=== PATIENT | female | born 1980 | race Caucasian/White ===

== ENCOUNTER 2022-03-26 21:42 | Inpatient (IN) | payer OTHER, MEDICAID, SELFPAY ==
[2022-03-26 21:56] VITALS: BP 103/64; PULSE 117; RESP 22; TEMP 37.3; O2SAT 86; BMI 30.1
--- NOTE | 2022-03-26 22:03 | DI.RAD.S_ITS ---
PROCEDURE: XR CHEST 1V INDICATIONS: suspected sepsis TECHNIQUE: One view of the chest was acquired. COMPARISON: None. FINDINGS: Surgical changes and devices: None. Lungs and pleura: There are confluent right upper lobe suprahilar airspace opacities and peripheral left basilar opacities consistent with consolidation. No definite pleural effusions or pneumothorax. Mediastinum: Mediastinal contours appear normal. Heart size is normal. Bones and chest wall: No suspicious bony lesions. Overlying soft tissues appear unremarkable. IMPRESSION: 1. Bilateral confluent airspace opacities likely representing lobar pneumonia. Dictated by: Jordan Caballero M.D. on 03/26/2022 at 23:06 Approved by: Jordan Caballero M.D. on 03/26/2022 at 23:07
[2022-03-26 22:15] VITALS: BP 103/64; PULSE 106; RESP 30; O2SAT 95
[2022-03-26] MEDS: ONDANSETRON 4 MG/2 ML INJ IV (22:18)
[2022-03-26] MEDS: SODIUM CHLORIDE 0.9% 1,000 ML 1000 ML IV ×2 (22:19→22:43)
[2022-03-26 22:36] LABS: INR 1.3 (0.9-1.3)
[2022-03-26 22:38] LABS: PTT Partial Thromboplastin Tim 26 SECONDS (26-36)
[2022-03-26 22:39] LABS: Lactate (Lactic Acid) 2.8 mmol/L (0.7-2.1)
[2022-03-26 22:40] VITALS: BP 94/47; PULSE 109; RESP 10; RESP 44; TEMP 34; O2SAT 94
[2022-03-26] MEDS: AZITHROMYCIN 500 MG in DEXTROSE 5% IN WATER 250 ML 250 MG IV (22:43)
[2022-03-26] MEDS: cefTRIAXone 2,000 MG in SODIUM CHLORIDE 0.9% 100 ML 200 MG IV (22:43)
[2022-03-26 22:49] LABS: Hematocrit 37.1 % (36-46); Hemoglobin 12.4 g/dL (12.0-16.0); Mean Corpuscular HGB Conc 33.5 % (30-36); Mean Corpuscular Hemoglobin 29.5 PG (26-34); Platelet Count 201 X10^3/uL (150-400); Red Blood Cell Count 4.21 X10^6/uL (4.0-5.2)
--- NOTE | 2022-03-26 22:58 | ED_ITS ---
HPI - SOB/Dyspnea General Chief Complaint: Shortness of Breath/Dyspnea Stated Complaint: SOB, Fever, Body aches, Vomiting Time Seen by Provider: 03/26/22 22:08 Source: patient Mode of arrival: Ambulatory Limitations: no limitations History of Present Illness HPI Narrative: Patient is a 41-year-old female without past medical history presenting today with cough fever and shortness of breath. She is in obvious respiratory distress and hypoxic. She says she has been sick for the last 4 days. With body aches fevers and chills. She has had decreased input as well. She says that she does vape and uses Kratom. She is disc feels like she can not breathe in the her lungs are tired. She has no abdominal pain nausea vomiting or diarrhea. She has traveled anywhere. Related Data Allergies Allergy/AdvReac Type Severity Reaction Status Date / Time No Known Drug Allergies Allergy Verified 03/26/22 22:02 Review of Systems Review of Systems Narrative: GENERAL: See HPI HEENT: Denies sinus pain, ear pain, sore throat, difficulty swallowing, neck abram n RESPIRATORY: See HPI CARDIOVASCULAR: Denies chest pain, palpitations, orthopnea, edema GASTROINTESTINAL: Denies nausea, vomiting, abdominal pain, diarrhea, constipation, melena. : Denies dysuria, frequency, incontinence, hematuria, urinary retention, flank pain. MUSCULOSKELETAL: Denies weakness, joint pain, or bony pain SKIN: No rash, no erythema, no pruritus NEUROLOGIC: Denies weakness, dizziness, headache, numbness, change in speech, confusion PSYCHIATRIC: No concerning psychosocial issues. 12 point review of systems is negative except for those stated above and HPI Patient History Social History Smoking Status: Unknown if ever smoked Exam Initial Vital Signs Initial Vital Signs: Vital Signs Temperature 99.2 F 03/26/22 21:56 Pulse Rate 117 H 03/26/22 21:56 Respiratory Rate 22 03/26/22 21:56 Blood Pressure 103/64 03/26/22 21:56 Pulse Oximetry 86 L 03/26/22 21:56 Oxygen Delivery Method 03/26/22 21:56 GENERAL: Alert 41-year-old female obvious respiratory distress dry mucous membranes pale cyanotic HEENT: Head atraumatic,EOMI, pupils reactive, face symmetric, dry mucous membranes CARDIOVASCULAR: Regular rate and rhythm without murmurs, rubs or gallops. RESPIRATORY: Coarse breath sounds tachypneic conversational dyspnea all mod erate to severe respiratory distress ABDOMEN: Soft, nontender. Normoactive bowel sounds all 4 quadrants. No guarding or rebound. EXTREMITIES: Normal range of motion, no clubbing or edema. Neurovascularly intact NEUROLOGICAL: Alert and oriented x4. SKIN: Warm, dry, no laceration, no petechiae, no rashes or lesions. Procedures Central Line Placement Right IJ: Patient Placed on Monitor/Pulse Ox: Yes MD Prep: mask, gown and gloves Central Line Prep: Chlorhexidine scrub and sterile drapes applied Ultrasound Used for Placement: Yes Central Line Lumen Inserted: triple Post Procedure: sutured in place, good blood return, all ports aspirated, flushed, capped and sterile dressing applied Post Procedure X-Ray: tip of catheter in good position (too deep, but in place) and no pneumothorax seen Patient Tolerated Procedure: Well Intubation sedative: Etomidate Mg Given: 10 paralytic: Succinylcholine Mg Given: 100 Laryngoscope: other (glide scope) ET Tube Size: 6.5 Tube Secured Depth (cm): 22 Tube Secured Location: lips Tube Placement Confirmation: Visualized tube passing through cords, Equal breath sounds bilaterally, No breath sounds over epigastrium, Confirmation by capnometry and Chest Xray Patient Tolerated Procedure: Well Course Orders Ordered: ED Orders 03/26/22 22:03 XR chest 1V Stat EKG-12 Lead Stat RT Consult Eval and Treat NOW 03/26/22 22:09 ABG [Arterial Blood Gas] Stat 03/26/22 22:10 Respiratory Panel (Film Array) Stat BiPAP Ventilatory Support RT PROTOCOL High flow/High humidity nasal NOW 03/26/22 22:11 BNP [NT-proBNP (BNP-Adult 18+)] Stat Complete Blood Count AUTO DIFF Stat Comprehensive Metabolic Panel Stat Lactate (Lactic Acid) Stat Lipase Stat Partial Thromboplastin Time Stat Procalcitonin Stat Prothrombin Time INR Stat 03/26/22 22:22 Blood Culture Stat 03/26/22 23:52 XR chest 1V Stat 03/27/22 00:41 ABG [Arterial Blood Gas] Stat Acetaminophen (Acetaminophen 650 Mg Supp) 650 mg NE Q6HR PRN PRN Reason: Fever/Mild Pain (1-3) Last Admin: 03/27/22 03:38 Dose: 650 mg Documented By: MUMTAZ Chlorhexidine Gluconate (Chlorhexidine Gluconate 15 Ml Cup) 15 ml PO Q6HR JACKSON Chlorhexidine Gluconate (Chlorhexidine Gluconate 15 Ml Cup) 15 ml PO Q6HR JACKSON Enoxaparin Sodium (Enoxaparin 30 Mg/0.3 Ml Syringe) 30 mg SUBCUT DAILY JACKSON Hydrocortisone (Hydrocortisone 100 Mg/2 Ml Vial) 50 mg IV Q6HR JACKSON Last Admin: 03/27/22 05:16 Dose: 50 mg Documented By: DL Propofol (Propofol) 1,000 mg in 100 mls @ 2.858 mls/hr IV TITRATE JACKSON; Protocol Last Titration: 03/27/22 04:11 Dose: 5 mcg/kg/min, 2.858 mls/hr Documented By: Admin: 03/27/22 03:57 Dose: 8 mcg/kg/min, 4.572 mls/hr Documented By: Titration: 03/27/22 03:57 Dose: 8 mcg/kg/min, 4.572 mls/hr Documented By: Titration: 03/27/22 01:08 Dose: 0 mcg/kg/min, 0 mls/hr Documented By: Titration: 03/27/22 00:19 Dose: 20 mcg/kg/min, 11.43 mls/hr Documented By: Titration: 03/26/22 23:42 Dose: 10 mcg/kg/min, 5.715 mls/hr Documented By: Admin: 03/26/22 23:28 Dose: 5 mcg/kg/min, 2.858 mls/hr Documented By: RL Fentanyl 1,000 mcg/ Dextrose 250 mls @ 16.669 mls/hr IV TITRATE JACKSON; Protocol Last Admin: 03/27/22 05:15 Dose: 2 mcg/kg/hr, 47.627 mls/hr Documented By: Titration: 03/27/22 05:15 Dose: 2 mcg/kg/hr, 47.627 mls/hr Documented By: Titration: 03/27/22 02:04 Dose: 2 mcg/kg/hr, 47.627 mls/hr Documented By: Titration: 03/27/22 00:20 Dose: 1.5 mcg/kg/hr, 35.72 mls/hr Documented By: Titration: 03/27/22 00:02 Dose: 1 mcg/kg/hr, 23.814 mls/hr Documented By: Admin: 03/26/22 23:55 Dose: 0.7 mcg/kg/hr, 16.669 mls/hr Documented By: KIRAN NOREPINEPHRINE BITARTRATE/D5W (Levophed) 4 mg in 250 mls @ 30 mls/hr IV TITRATE JACKSON; Protocol Last Admin: 03/27/22 05:31 Dose: 15 mcg/min, 56.25 mls/hr Documented By: Titration: 03/27/22 05:31 Dose: 15 mcg/min, 56.25 mls/hr Documented By: Titration: 03/27/22 01:03 Dose: 10 mcg/min, 37.5 mls/hr Documented By: Admin: 03/27/22 00:55 Dose: 8 mcg/min, 30 mls/hr Documented By: KIRAN Midazolam HCl 50 mg/ Dextrose 250 mls @ 9.525 mls/hr IV TITRATE JACKSON; Protocol Last Titration: 03/27/22 04:11 Dose: 0.02 mg/kg/hr, 9.525 mls/hr Documented By: Admin: 03/27/22 02:03 Dose: 0.05 mg/kg/hr, 23.814 mls/hr Documented By: MUMTAZ Azithromycin 500 mg/ Dextrose 250 mls @ 250 mls/hr IV Q24H JACKSON Stop: 04/01/22 20:59 Ceftriaxone Sodium 1,000 mg/ (Sodium Chloride) 100 mls @ 200 mls/hr IV Q24H JACKSON Stop: 04/01/22 19:59 Vancomycin HCl/Dextrose (Vancomycin) 1,500 mg in 300 mls @ 200 mls/hr IV Q24H JACKSON Vasopressin 40 unit/ Sodium (Chloride) 100 mls @ 6 mls/hr IV TITRATE JACKSON Stop: 04/02/22 05:00 Last Admin: 03/27/22 05:47 Dose: 0.04 unit/min, 6 mls/hr Naloxone HCl (Naloxone 0.4 Mg/Ml Vial) 0.2 mg IV Q2MIN PRN PRN Reason: Opiate Reversal Ondansetron HCl (Ondansetron 4 Mg/2 Ml Inj) 4 mg IV NOW PRN PRN Reason: Nausea And Vomiting Last Admin: 03/26/22 22:18 Dose: 4 mg Documented By: MAHIN Pantoprazole Sodium (Pantoprazole 40 Mg Vial) 40 mg IV DAILY JACKSON Discontinued Medications Etomidate (Etomidate 2 Mg/Ml 10 Ml Vial) 10 mg IV NOW ONE Stop: 03/26/22 23:11 Last Admin: 03/26/22 23:21 Dose: 10 mg Documented By: KIRAN Fentanyl (Fentanyl 100 Mcg/2 Ml Inj) 50 mcg IV NOW ONE Stop: 03/26/22 23:44 Last Admin: 03/26/22 23:44 Dose: 50 mcg Documented By: RL Sodium Chloride (Normal Saline 0.9%) 1,000 mls @ 1,000 mls/hr IV BOLUS ONE Stop: 03/26/22 23:02 Last Infusion: 03/27/22 00:29 Dose: 0 mls/hr Documented By: Admin: 03/26/22 22:19 Dose: 1,000 mls/hr Documented By: GC Ceftriaxone Sodium 2,000 mg/ (Sodium Chloride) 100 mls @ 200 mls/hr IV NOW ONE Stop: 03/26/22 22:10 Last Infusion: 03/26/22 23:51 Dose: 0 mls/hr Documented By: Admin: 03/26/22 22:43 Dose: 200 mls/hr Documented By: AT Azithromycin 500 mg/ Dextrose 250 mls @ 250 mls/hr IV NOW ONE Stop: 03/26/22 22:10 Last Infusion: 03/26/22 23:50 Dose: 0 mls/hr Documented By: Admin: 03/26/22 22:43 Dose: 250 mls/hr Documented By: AT Sodium Chloride (Normal Saline 0.9%) 1,000 mls @ 1,000 mls/hr IV BOLUS ONE Stop: 03/26/22 23:38 Last Infusion: 03/27/22 00:08 Dose: 0 mls/hr Documented By: Admin: 03/26/22 22:43 Dose: 1,000 mls/hr Documented By: AT Sodium Chloride (Normal Saline 0.9%) 2,857.62 mls @ 952.54 mls/hr 30 ml/kg infuse over 3 hr (2857.62 ml) IV NOW ONE Stop: 03/27/22 01:56 Last Admin: 03/26/22 23:12 Dose: 952.54 mls/hr Documented By: MAHIN Vancomycin HCl/Dextrose (Vancomycin) 2,000 mg in 400 mls @ 200 mls/hr IV NOW ONE Stop: 03/27/22 05:14 Last Admin: 03/27/22 03:38 Dose: 200 mls/hr Documented By: DL Ibuprofen (Ibuprofen Susp 100 Mg/5 Ml Udc) 955 mg 10 mg/kg (955 mg) PO NOW ONE Stop: 03/27/22 03:46 Ibuprofen (Ibuprofen Susp 100 Mg/5 Ml Udc) 800 mg PO NOW ONE Stop: 03/27/22 03:46 Midazolam HCl (Midazolam 2 Mg/2 Ml Vial) 5 mg IV NOW ONE Stop: 03/26/22 23:39 Last Admin: 03/26/22 23:41 Dose: 5 mg Documented By: RL Midazolam HCl (Midazolam 5 Mg/Ml Vial) 4 mg IV NOW ONE Stop: 03/27/22 00:23 Last Admin: 03/27/22 00:26 Dose: 4 mg Documented By: RL Midazolam HCl (Midazolam 5 Mg/5 Ml Vial) 5 mg IV NOW ONE Stop: 03/27/22 01:06 Last Admin: 03/27/22 02:03 Dose: Not Given Documented By: MUMTAZ Propofol (Propofol 200 Mg/20 Ml Vial) 100 mg IV NOW ONE Stop: 03/26/22 23:33 Last Admin: 03/26/22 23:32 Dose: 100 mg Documented By: KIRAN Propofol (Propofol 200 Mg/20 Ml Vial) 100 mg IV NOW ONE Stop: 03/26/22 23:40 Last Admin: 03/26/22 23:40 Dose: 100 mg Documented By: RL Succinylcholine Chloride (Succinylcholine 200 Mg/10 Ml Vial) 100 mg IV NOW ONE Stop: 03/26/22 23:12 Last Admin: 03/26/22 23:21 Dose: 100 mg Documented By: KIRAN Vancomycin HCl (Vancomycin Per Pharmacy) 1 request MISC NOW ONE Stop: 03/27/22 02:17 Vasopressin (Vasopressin 20 Unit/Ml Vial) 20 unit IV NOW ONE Stop: 03/27/22 05:24 Last Admin: 03/27/22 05:47 Dose: 20 unit Vital Signs Vital signs: Vital Signs - 8 hr 03/26/22 22:15 03/26/22 23:25 03/26/22 22:15 Pulse Rate 106 H 110 H 106 H Respiratory Rate 30 H 30 H Blood Pressure 103/64 Pulse Oximetry 95 95 Fraction of Inspired Oxygen 03/26/22 22:40 Pulse Rate Respiratory Rate Blood Pressure 94/47 L Pulse Oximetry Fraction of Inspired Oxygen 70 MDM - SOB/Dyspnea Lab Data Result diagrams: 03/26/22 22:11 03/26/22 22:11 Labs: Lab Results 03/26/22 03/26/22 03/26/22 Range/Units 22:10 22:11 22:11 WBC 1.6 L* (4.5-11.0) X10^3/uL RBC 4.21 (4.0-5.2) X10^6/uL Hgb 12.4 (12.0-16.0) g/dL Hct 37.1 (36-46) % MCV 88.0 (80-100) fL MCH 29.5 (26-34) PG MCHC 33.5 (30-36) % RDW 13.0 (11.6-14.8) % Plt Count 201 (150-400) X10^3/uL Neut % (Auto) Not Reportable Lymph % (Auto) Not Reportable [place] % (Auto) Not Reportable Eos % (Auto) Not Reportable Baso % (Auto) Not Reportable Lymph # (Auto) Not Reportable [place] # (Auto) Not Reportable Baso # (Auto) Not Reportable PT 15.0 H (10.1-12.7) SECONDS INR 1.3 (0.9-1.3) APTT 26 (26-36) SECONDS Sodium (137-145) mmol/L Potassium (3.4-5.1) mmol/L Chloride (98-107) mmol/L Carbon Dioxide (22-32) mmol/L BUN (7-17) mg/dL Creatinine (0.52-1.04) mg/dL Estimated GFR (>60) mL/min BUN/Creatinine Ratio (6-22) Glucose (70-100) mg/dL Lactate (0.7-2.1) mmol/L Calcium (8.4-10.2) mg/dL Total Bilirubin (0.2-1.3) mg/dL AST (14-36) IU/L ALT (<35) IU/L Alkaline Phosphatase (38-126) U/L Troponin I (0.01-0.034) ng/mL NT-Pro-B Natriuret Pep (<125) pg/mL Total Protein (6.3-8.2) g/dL Albumin (3.5-5.0) g/dL Globulin (1.7-4.1) g/dL Albumin/Globulin Ratio (1.0-2.8) Lipase (23-300) U/L Procalcitonin (<0.5) ng/mL Serum , Qual (Negative) Chlamy pneumoniae PCR Not detected (Not Detect) Adenovirus (PCR) Not detected (Not Detect) B. pertussis DNA (PCR) Not detected (Not Detecte) B.parapertussis DNA PCR Not detected (Not Detecte) Coronavirus OC43 (PCR) Not detected (Not Detect) Coronavirus HKU1 (PCR) Not detected (Not Detect) Coronavirus 229E (PCR) Not detected (Not Detect) SARS-CoV-2 (PCR) Not detected (Not Detecte) Coronavirus NL63 (PCR) Not detected (Not Detect) Human Metapneumovir PCR Not detected (Not Detect) Influenza Type A (PCR) Not detected (Not Detect) Influenza Type B (PCR) Not detected (Not Detect) M. pneumoniae (PCR) Not detected (Not Detect) Parainfluenza 1 (PCR) Not detected (Not Detect) Parainfluenza 2 (PCR) Not detected (Not Detect) Parainfluenza 3 (PCR) Not detected (Not Detect) Parainfluenza 4 (PCR) Not detected (Not Detect) RSV (PCR) Not detected (Not Detect) Entero/Rhino (PCR) Not detected (Not Detect) 03/26/22 03/26/22 03/26/22 Range/Units 22:11 22:11 22:11 WBC (4.5-11.0) X10^3/uL RBC (4.0-5.2) X10^6/uL Hgb (12.0-16.0) g/dL Hct (36-46) % MCV (80-100) fL MCH (26-34) PG MCHC (30-36) % RDW (11.6-14.8) % Plt Count (150-400) X10^3/uL Neut % (Auto) Lymph % (Auto) [place] % (Auto) Eos % (Auto) Baso % (Auto) Lymph # (Auto) [place] # (Auto) Baso # (Auto) PT (10.1-12.7) SECONDS INR (0.9-1.3) APTT (26-36) SECONDS Sodium 132 L (137-145) mmol/L Potassium 3.2 L (3.4-5.1) mmol/L Chloride 93 L (98-107) mmol/L Carbon Dioxide 23 (22-32) mmol/L BUN 57 H (7-17) mg/dL Creatinine 3.15 H (0.52-1.04) mg/dL Estimated GFR 18 L (>60) mL/min BUN/Creatinine Ratio 18.1 (6-22) Glucose 125 H (70-100) mg/dL Lactate 2.8 H (0.7-2.1) mmol/L Calcium 7.6 L (8.4-10.2) mg/dL Total Bilirubin 0.5 (0.2-1.3) mg/dL AST 32 (14-36) IU/L ALT 24 (<35) IU/L Alkaline Phosphatase 63 (38-126) U/L Troponin I (0.01-0.034) ng/mL NT-Pro-B Natriuret Pep 9680 H (<125) pg/mL Total Protein 7.1 (6.3-8.2) g/dL Albumin 3.7 (3.5-5.0) g/dL Globulin 3.4 (1.7-4.1) g/dL Albumin/Globulin Ratio 1.1 (1.0-2.8) Lipase 17 L (23-300) U/L Procalcitonin 58.3 H (<0.5) ng/mL Serum , Qual (Negative) Chlamy pneumoniae PCR (Not Detect) Adenovirus (PCR) (Not Detect) B. pertussis DNA (PCR) (Not Detecte) B.parapertussis DNA PCR (Not Detecte) Coronavirus OC43 (PCR) (Not Detect) Coronavirus HKU1 (PCR) (Not Detect) Coronavirus 229E (PCR) (Not Detect) SARS-CoV-2 (PCR) (Not Detecte) Coronavirus NL63 (PCR) (Not Detect) Human Metapneumovir PCR (Not Detect) Influenza Type A (PCR) (Not Detect) Influenza Type B (PCR) (Not Detect) M. pneumoniae (PCR) (Not Detect) Parainfluenza 1 (PCR) (Not Detect) Parainfluenza 2 (PCR) (Not Detect) Parainfluenza 3 (PCR) (Not Detect) Parainfluenza 4 (PCR) (Not Detect) RSV (PCR) (Not Detect) Entero/Rhino (PCR) (Not Detect) 03/26/22 03/26/22 Range/Units 22:11 22:11 WBC (4.5-11.0) X10^3/uL RBC (4.0-5.2) X10^6/uL Hgb (12.0-16.0) g/dL Hct (36-46) % MCV (80-100) fL MCH (26-34) PG MCHC (30-36) % RDW (11.6-14.8) % Plt Count (150-400) X10^3/uL Neut % (Auto) Lymph % (Auto) [place] % (Auto) Eos % (Auto) Baso % (Auto) Lymph # (Auto) [place] # (Auto) Baso # (Auto) PT (10.1-12.7) SECONDS INR (0.9-1.3) APTT (26-36) SECONDS Sodium (137-145) mmol/L Potassium (3.4-5.1) mmol/L Chloride (98-107) mmol/L Carbon Dioxide (22-32) mmol/L BUN (7-17) mg/dL Creatinine (0.52-1.04) mg/dL Estimated GFR (>60) mL/min BUN/Creatinine Ratio (6-22) Glucose (70-100) mg/dL Lactate (0.7-2.1) mmol/L Calcium (8.4-10.2) mg/dL Total Bilirubin (0.2-1.3) mg/dL AST (14-36) IU/L ALT (<35) IU/L Alkaline Phosphatase (38-126) U/L Troponin I < 0.012 (0.01-0.034) ng/mL NT-Pro-B Natriuret Pep (<125) pg/mL Total Protein (6.3-8.2) g/dL Albumin (3.5-5.0) g/dL Globulin (1.7-4.1) g/dL Albumin/Globulin Ratio (1.0-2.8) Lipase (23-300) U/L Procalcitonin (<0.5) ng/mL Serum , Qual Negative (Negative) Chlamy pneumoniae PCR (Not Detect) Adenovirus (PCR) (Not Detect) B. pertussis DNA (PCR) (Not Detecte) B.parapertussis DNA PCR (Not Detecte) Coronavirus OC43 (PCR) (Not Detect) Coronavirus HKU1 (PCR) (Not Detect) Coronavirus 229E (PCR) (Not Detect) SARS-CoV-2 (PCR) (Not Detecte) Coronavirus NL63 (PCR) (Not Detect) Human Metapneumovir PCR (Not Detect) Influenza Type A (PCR) (Not Detect) Influenza Type B (PCR) (Not Detect) M. pneumoniae (PCR) (Not Detect) Parainfluenza 1 (PCR) (Not Detect) Parainfluenza 2 (PCR) (Not Detect) Parainfluenza 3 (PCR) (Not Detect) Parainfluenza 4 (PCR) (Not Detect) RSV (PCR) (Not Detect) Entero/Rhino (PCR) (Not Detect) Imaging Data Chest x-ray: Radiologist's Impression: [address] [place] [id number] XRay Report Signed Patient: Pravin Yepez MR#: [id number] : 1980 Acct:[id number] Age/Sex: 41 / F Date of Service: 03/26/22 Loc: ED Accession Number: [id number] ?? Procedure: XR chest 1V Ordering Provider: Key Tavarez D.O. PROCEDURE:? XR CHEST 1V ? INDICATIONS:? suspected sepsis ? TECHNIQUE:? One view of the chest was acquired.? ? COMPARISON:? None. ? FINDINGS:? ? Surgical changes and devices:? None.? ? Lungs and pleura:? There are confluent right upper lobe suprahilar airspace opacities and peripheral left basilar opacities consistent with consolidation.? No definite pleural effusions or pneumothorax. ? Mediastinum:? Mediastinal contours appear normal.? Heart size is normal.? ? Bones and chest wall:? No suspicious bony lesions.? Overlying soft tissues appear unremarkable.? ? IMPRESSION:? ? 1. Bilateral confluent airspace opacities likely representing lobar pneumonia.? ? ? Dictated by: Jordan Caballero M.D. on 03/26/2022 at 23:06 ?? CX 2: Radiologist's Impression: BRETT Garcia [id number] XRay Report Signed Patient: Pravin Yepez MR#: [id number] : 1980 Acct:[id number] Age/Sex: 41 / F Date of Service: 03/26/22 Loc: 90A-1 Accession Number: [id number] ?? Procedure: XR chest 1V Ordering Provider: Key Tavarez D.O. PROCEDURE:? XR CHEST 1V ? INDICATIONS:? CVC placement, ET tube placement ? TECHNIQUE:? One view of the chest was acquired.? ? COMPARISON:? [facility], , XR CHEST 1V, 03/26/2022, 22:00. ? FINDINGS:? ? Surgical changes and devices:? There is a new endotracheal tube with the tip approximately 4.5 cm from the sarah.? A new right internal jugular catheter demonstrated with the tip projecting over the inferomedial right atrium.? ? Lungs and pleura:? Bilateral confluent airspace opacities within the right upper lobe and left lung base appear increased compared to the prior study.? No definite pleural effusions or pneumothorax.? ? Mediastinum:? Mediastinal contours appear unchanged.? Heart size is normal.? ? Bones and chest wall:? No suspicious bony lesions.? Overlying soft tissues appear unremarkable.? ? IMPRESSION:? ? 1. New right internal jugular catheter tip projects over the inferior right atrium.? Recommend withdrawal by approximately 6 cm. ? 2.? No definite evidence of pneumothorax. ? 3. Increased confluent bilateral airspace opacities again likely representing pneumonia.? Dictated by: Jordan Caballero M.D. on 03/27/2022 at 0:23 ? ? MDM Narrative Medical decision making narrative: Patient presents in obvious respiratory distress. X-ray shows bilateral significant pneumonia. His respiratory panel a surprisingly neck. She was initially put on nasal cannula for brief moment and then switched to high-flow nasal cannula. She did not like how fell into tolerated. His she was switched over to BiPAP which she had a little bit better. However she is still quite tachypneic not tolerating BiPAP and needed intubation. She was intubated in started on vasopressors as well for some hypotension. She is given prophylactic antibiotics as well Rocephin azithromycin for community-acquired pneumonia is. No to on 100% was 45 here in the ED. she is found have acute kidney injury with a creatinine of 3.15 as well. Love catheters placed monitoring ice and nose. She is given sepsis fluid boluses. Inderjit accepts patient to ICU Critical Care Time Critical Care Time Critical Care Time: Yes Total Critical Care Time: 50 Attestation: The high probability of a clinically significant, sudden or life threatening deterioration of the [cardiovascular] system(s) required my full and direct attention, intervention and personal management. The aggregate critical care time was 50 minutes. This time is in addition to time spent performing reported procedures but includes the following: [x] Data Review and interpretation [x] Patient assessment and monitoring of vital signs [x] Documentation [x] Medication orders and management Discharge Plan Departure Patient Disposition: Admitted As Inpatient Clinical Impression: Pneumonia, Respiratory failure, Septic shock Admit Date/Time: 03/27/22 00:21 Admit Provider: Leonila Jansen
[2022-03-26] MEDS: SODIUM CHLORIDE 0.9% 952.54 ML IV (23:12)
[2022-03-26 23:18] LABS: NT-proBNP (BNP-Adult 18+) 9680 pg/mL (<125)
[2022-03-26] MEDS: SUCCINYLCHOLINE 200 MG/10 ML VIAL 100 MG IV (23:21)
[2022-03-26] MEDS: ETOMIDATE 2 MG/ML 10 ML VIAL 10 MG IV (23:21)
[2022-03-26 23:23] LABS: Add Manual Diff / Slide Review YES; Alanine Aminotransferase 24 IU/L (<35); Albumin 3.7 g/dL (3.5-5.0); Albumin Globulin Ratio 1.1 (1.0-2.8); Alkaline Phosphatase 63 U/L (38-126); Aspartate Aminotransferase 32 IU/L (14-36); BUN Creatinine Ratio 18.1 (6-22); Bilirubin Total 0.5 mg/dL (0.2-1.3); Blood Urea Nitrogen 57 mg/dL (7-17); Calcium 7.6 mg/dL (8.4-10.2); Carbon Dioxide 23 mmol/L (22-32); Chloride 93 mmol/L (98-107); Estimated Glomerular Filt Rate 18 mL/min (>60); Globulin 3.4 g/dL (1.7-4.1); Glucose 125 mg/dL (70-100); HEMOLYSIS < 15 (0-50); Lipase 17 U/L (23-300); Potassium 3.2 mmol/L (3.4-5.1); Sodium 132 mmol/L (137-145); Total Protein 7.1 g/dL (6.3-8.2); White Blood Cell Count 1.6 X10^3/uL (4.5-11.0)
[2022-03-26 23:25] VITALS: BP 108/59; PULSE 110; RESP 25; O2SAT 88
[2022-03-26] MEDS: propofoL 1,000 MG/100 ML VIAL 2.858 MG IV (23:28)
[2022-03-26] MEDS: propofoL 200 MG/20 ML VIAL 100 MG IV ×2 (23:32→23:40)
[2022-03-26 23:39] LABS: Procalcitonin 58.3 ng/mL (<0.5)
[2022-03-26] MEDS: MIDAZOLAM 2 MG/2 ML VIAL 5 MG IV (23:41)
[2022-03-26] MEDS: fentaNYL 100 MCG/2 ML INJ 50 MCG IV (23:44)
--- NOTE | 2022-03-26 23:52 | DI.RAD.S_ITS ---
PROCEDURE: XR CHEST 1V INDICATIONS: CVC placement, ET tube placement TECHNIQUE: One view of the chest was acquired. COMPARISON: [facility], CR, XR CHEST 1V, 03/26/2022, 22:00. FINDINGS: Surgical changes and devices: There is a new endotracheal tube with the tip approximately 4.5 cm from the sarah. A new right internal jugular catheter demonstrated with the tip projecting over the inferomedial right atrium. Lungs and pleura: Bilateral confluent airspace opacities within the right upper lobe and left lung base appear increased compared to the prior study. No definite pleural effusions or pneumothorax. Mediastinum: Mediastinal contours appear unchanged. Heart size is normal. Bones and chest wall: No suspicious bony lesions. Overlying soft tissues appear unremarkable. IMPRESSION: 1. New right internal jugular catheter tip projects over the inferior right atrium. Recommend withdrawal by approximately 6 cm. 2. No definite evidence of pneumothorax. 3. Increased confluent bilateral airspace opacities again likely representing pneumonia. Dictated by: Jordan Caballero M.D. on 03/27/2022 at 0:23 Approved by: Jordan Caballero M.D. on 03/27/2022 at 0:25
[2022-03-26] MEDS: fentaNYL 1,000 MCG in DEXTROSE 5% IN WATER 230 ML 16.669 MCG IV (23:55)
[2022-03-27] VITALS (76 sets, daily range): BP systolic 79–154; BP diastolic 46–88; PULSE 104–122; RESP 3–35; TEMP 37.1–38.3; O2SAT 77–98; BMI 30.1
--- NOTE | 2022-03-27 00:04 | PC.NURSE ---
Addendum entered by Anabell Royal R.N. 03/27/22 01:43: Unable to transfer vital signs into electronic chart. Hard copy labeled and placed in chart. Original Note: Time out for intubation was started 2320 with etomidate and succ pushed at 2321. Patient was a difficult airway requiring additional staff and medications to place ET tube successfully. ET 23 at the teeth. After patient made comfortable with additional medication pushes while waiting on fentanyl drip, CVC was placed by provider. Xray was performed for placement.
[2022-03-27 00:25] LABS: Reflexed Lactate in 2 Hours Y
[2022-03-27] MEDS: MIDAZOLAM 5 MG/ML VIAL 4 MG IV (00:26)
[2022-03-27 00:42] LABS: Adenovirus Not Detected (Not Detect); B. parapertussis Not Detected (Not Detecte); Bordetella pertussis Not Detected (Not Detecte); Chlamydophila pneumoniae Not Detected (Not Detect); Coronavirus 229E Not Detected (Not Detect); Coronavirus HKU1 Not Detected (Not Detect); Coronavirus NL 63 Not Detected (Not Detect); Coronavirus OC43 Not Detected (Not Detect); Human Metapneumovirus Not Detected (Not Detect); Human Rhinovirus/Enterovirus Not Detected (Not Detect); Influenza A Not Detected (Not Detect); Influenza B Not Detected (Not Detect); Mycoplasma pneumoniae Not Detected (Not Detect); Parainfluenza Virus 1 Not Detected (Not Detect); Parainfluenza Virus 2 Not Detected (Not Detect); Parainfluenza Virus 3 Not Detected (Not Detect); Parainfluenza Virus 4 Not Detected (Not Detect); Respiratory Syncytial Virus Not Detected (Not Detect); SARS- CoV-2 Not Detected (Not Detecte)
[2022-03-27] MEDS: NOREPINEPHRINE BITARTRATE/D5W 4 MG/250 ML PLAST..BAG 30 MG IV (00:55)
[2022-03-27 01:04] LABS: Pregnancy Test Serum,Qual Negative (Negative)
[2022-03-27 01:07] LABS: Fractionated Inspired Oxygen 100; HCO3 ABG 19 mmol/L (22-26); Oxygen Saturation ABG 76 % (95-100); PCO2 ABG 45.5 mmHg (35-45); PO2 ABG 48 mmHg (80-100); TCO2 ABG 21 mmol/L (21-31)
[2022-03-27 01:08] LABS: pH ABG 7.23 (7.35-7.45)
[2022-03-27] MEDS: MIDAZOLAM 50 MG in DEXTROSE 5% IN WATER 240 ML 23.814 MG IV (02:03)
--- NOTE | 2022-03-27 02:06 | PC.NURSE ---
Addendum entered by Silvia Lauren R.N. 03/27/22 06:59: blood pressure falling to 60 systolic, \monserrat called to bedside. Addendum entered by Silvia Lauren R.N. 03/27/22 06:29: O2 sat between 84-85% at present time. Addendum entered by Silvia Lauren R.N. 03/27/22 06:29: attempting to obtain blood gas, pt. stuck multiple times but Addendum entered by Silvia Lauren R.N. 03/27/22 06:22: attempting to go to CT scan, but O2 sat dropping rapidly unable to get O2 sats to stabilize. Dr. Thomas informed . Addendum entered by Silvia Lauren R.N. 03/27/22 05:39: Paatient with no urine output from 4-5am, Dr. Thomas informed and noted. medicated with steroids and vasopressin started for blood pressure support. Addendum entered by Silvia Lauren R.N. 03/27/22 04:51: Actively titrating all drip, versed, propofol and fentanyl. blood pressure very labile. Dr. Thomas on tele to see patient, informed of status. \vancomycin started and infusing. Heart rate slowly decreasing. Original Note: Received patient from ED on transport ventilator with sedation infusion. Pt. with tlc iv in place, pt. sitting up in bed and turning side to side. Patient encouraged to relax and versed drip started. slowly titrating drip up to 0.05mg/kg. Pt. slowly falling to sleep. Blood pressure stable on 10 mcg of levophed, and fluid bolus infusing. sputum obtained and sent to lab, lung sounds not improving after suctioning.
[2022-03-27 02:15] LABS: Bilirubin Urine UA 1+ (NEGATIVE); Color Urine UA YELLOW; Glucose Urine UA NEGATIVE (Negative); Ketones Urine UA TRACE (NEGATIVE); Leukocyte Esterase Urine UA TRACE (NEGATIVE); Nitrite Urine UA NEGATIVE (Negative); Occult Blood Urine UA NEGATIVE (Negative); Protein Urine UA 2+ (Negative); Specific Gravity Urine UA 1.025 (1.000-1.035); Urobilinogen Urine UA 0.2 E.U./dL (0.2)
[2022-03-27 02:17] LABS: Appearance Urine UA CLOUDY
--- NOTE | 2022-03-27 02:45 | DI.RAD.S_ITS ---
PROCEDURE: XR CHEST 1V INDICATIONS: Intubated pneumonia TECHNIQUE: One view of the chest was acquired. COMPARISON: [facility], CR, XR CHEST 1V, 03/26/2022, 23:49. FINDINGS: Surgical changes and devices: ETT tip is approximately 3.3 cm above the sarah. NG tube tip is below the left hemidiaphragm. Right internal jugular central venous catheter tip is in the region of SVC/right atrium. Lungs and pleura: Near complete opacification of right upper lobe is seen suggestive of right-sided sided pleural effusion and large right upper lobe infiltrate/atelectasis unchanged from prior study. Large airspace opacities also noted in left lower lung field suggestive of left lower lobe infiltrate. No pneumothorax. Mediastinum: Mediastinal contours appear normal. Heart size is normal. Bones and chest wall: No suspicious bony lesions. Overlying soft tissues appear unremarkable. IMPRESSION: Suggestion of persistent right-sided pleural effusion and right upper lobe infiltrate/atelectasis. Persistent left lower lobe infiltrate/atelectasis. No gross pneumothorax. Dictated by: Shekhar Brown M.D. on 03/27/2022 at 13:02 Approved by: Shekhar Brown M.D. on 03/27/2022 at 13:03
[2022-03-27 02:55] LABS: Ictotest Urine Negative (Negative)
[2022-03-27 03:28] LABS: HCO3 ABG 19 mmol/L (22-26); Oxygen Saturation ABG 79 % (95-100); PCO2 ABG 42.9 mmHg (35-45); PO2 ABG 50 mmHg (80-100); TCO2 ABG 20 mmol/L (21-31)
[2022-03-27 03:29] LABS: Fractionated Inspired Oxygen 100; pH ABG 7.26 (7.35-7.45)
[2022-03-27 03:33] LABS: Amorphous Sediment Urine 4+; Bacteria Urine None Seen; Culture Indicated Urine Specimen Cultured; Hyaline Casts Urine 0-1/LPF; RBC Urine None Seen (0-5/HPF); WBC Urine 1-5/HPF (0-5/HPF)
[2022-03-27] MEDS: ACETAMINOPHEN 650 MG SUPP PR ×2 (03:38→22:52)
[2022-03-27] MEDS: VANCOMYCIN 2,000 MG/400 ML PIGGYBACK 200 MG IV (03:38)
[2022-03-27] MEDS: propofoL 1,000 MG/100 ML VIAL 4.572 MG IV (03:57)
[2022-03-27 04:08] LABS: Troponin I < 0.012 ng/mL (0.01-0.034)
[2022-03-27 04:13] LABS: UR Morphine/Opiate cutoff 300 Negative (Negative); Ur Creatinine 50 (Normal); Ur Specific Gravity 1.025 (Normal); Urine Amphetamines Negative (Negative); Urine Barbiturates Negative (Negative); Urine Benzodiazepines Negative (Negative); Urine Cocaine Negative (Negative); Urine MDMA Negative (Negative); Urine Methadone Negative (Negative); Urine Methamphetamines Negative (Negative); Urine Oxycodone Negative (Negative); Urine Phencyclidine Negative (Negative); Urine Tetrahydrocannabinol Negative (Negative); Urine Tricyclic Antidepressant Negative (Negative); Urine pH 5 (Normal)
--- NOTE | 2022-03-27 04:41 | PM.CN.EICU ---
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 Jansen Bedside nurse [facility] Social History Smoking Status: Unknown if ever smoked Current Medications Current Medications Medications: Visit Medications (administered) Generic Name Dose Route Start Last Admin Trade Name Freq PRN Reason Stop Dose Admin Acetaminophen 650 mg 03/27/22 02:46 03/27/22 03:38 Acetaminophen 650 Mg Supp NM 650 mg Q6HR PRN Administration Fever/Mild Pain (1-3) Propofol 1,000 mg in 100 mls @ 2.858 mls/hr 03/26/22 23:30 03/27/22 04:11 Propofol IV 5 mcg/kg/min TITRATE JACKSON 2.858 mls/hr Titration Protocol 5 MCG/KG/MIN Fentanyl 1,000 mcg/ Dextrose 250 mls @ 16.669 mls/hr 03/26/22 23:45 03/27/22 02:04 IV 2 mcg/kg/hr TITRATE JACKSON 47.627 mls/hr Titration Protocol 0.7 MCG/KG/HR NOREPINEPHRINE BITARTRATE/D5W 4 mg in 250 mls @ 30 mls/hr 03/27/22 00:53 03/27/22 01:03 Levophed IV 10 mcg/min TITRATE JACKSON 37.5 mls/hr Titration Protocol 8 MCG/MIN Midazolam HCl 50 mg/ Dextrose 250 mls @ 9.525 mls/hr 03/27/22 01:15 03/27/22 04:11 IV 0.02 mg/kg/hr TITRATE JACKSON 9.525 mls/hr Titration Protocol 0.02 MG/KG/HR Vancomycin HCl/Dextrose 2,000 mg in 400 mls @ 200 mls/hr 03/27/22 03:15 03/27/22 03:38 Vancomycin IV 03/27/22 05:14 200 mls/hr NOW ONE Administration Ondansetron HCl 4 mg 03/26/22 22:03 03/26/22 22:18 Ondansetron 4 Mg/2 Ml Inj IV 4 mg NOW PRN Administration Nausea And Vomiting Exam Vital Signs (past 8 hours): - 12/04/22 21:56 03/26/22 22:15 03/26/22 23:25 Temperature 99.2 F Pulse Rate 117 H 106 H 110 H Respiratory Rate 22 30 H Blood Pressure 103/64 103/64 Pulse Oximetry 86 L 95 Oxygen Delivery Method Room Air Fraction of Inspired Oxygen 03/27/22 00:33 03/26/22 22:15 03/26/22 22:40 Temperature Pulse Rate 106 H Respiratory Rate 30 H Blood Pressure 94/47 L Pulse Oximetry 95 Oxygen Delivery Method Mechanical Ventilation Fraction of Inspired Oxygen 70 Fraction of Inspired Oxygen 70 Oxygen Delivery Method Mechanical Ventilation Objective Labs Result Diagrams: 03/26/22 22:11 03/26/22 22:11 Labs: Laboratory Results - last 24 hr 03/26/22 03/26/22 03/26/22 22:10 22:11 22:11 WBC 1.6 L* RBC 4.21 Hgb 12.4 Hct 37.1 MCV 88.0 MCH 29.5 MCHC 33.5 RDW 13.0 Plt Count 201 Neut % (Auto) Not Reportable Lymph % (Auto) Not Reportable Weber % (Auto) Not Reportable Eos % (Auto) Not Reportable Baso % (Auto) Not Reportable Lymph # (Auto) Not Reportable Weber # (Auto) Not Reportable Baso # (Auto) Not Reportable PT 15.0 H INR 1.3 APTT 26 ABG pH ABG pCO2 ABG pO2 ABG HCO3 ABG Total CO2 ABG O2 Saturation ABG Base Excess FiO2 Sodium Potassium Chloride Carbon Dioxide BUN Creatinine Estimated GFR BUN/Creatinine Ratio Glucose Lactate Calcium Total Bilirubin AST ALT Alkaline Phosphatase Troponin I NT-Pro-B Natriuret Pep Total Protein Albumin Globulin Albumin/Globulin Ratio Lipase Procalcitonin Serum , Qual Urine Color Urine Appearance Urine pH Ur Specific [place] Urine Protein Urine Glucose (UA) Urine Ketones Urine Occult Blood Urine Nitrate Urine Bilirubin Ur Bilirubin Confirm Urine Urobilinogen Ur Leukocyte Esterase Urine RBC Urine WBC Amorphous Sediment Urine Bacteria Hyaline Casts Ur Culture Indicated? U Opiates 300ng/mL cut Ur Oxycodone Screen Urine Methadone Screen Ur Barbiturates Screen U Tricyclic Antidepress Ur Phencyclidine Scrn Ur Amphetamines Screen U Methamphetamines Scrn Ur MDMA Scrn (Ecstasy) U Benzodiazepines Scrn Urine Cocaine Screen U Marijuana (THC) Screen Chlamy pneumoniae PCR Not detected Adenovirus (PCR) Not detected B. pertussis DNA (PCR) Not detected B.parapertussis DNA PCR Not detected Coronavirus OC43 (PCR) Not detected Coronavirus HKU1 (PCR) Not detected Coronavirus 229E (PCR) Not detected SARS-CoV-2 (PCR) Not detected Coronavirus NL63 (PCR) Not detected Human Metapneumovir PCR Not detected Influenza Type A (PCR) Not detected Influenza Type B (PCR) Not detected M. pneumoniae (PCR) Not detected Parainfluenza 1 (PCR) Not detected Parainfluenza 2 (PCR) Not detected Parainfluenza 3 (PCR) Not detected Parainfluenza 4 (PCR) Not detected RSV (PCR) Not detected Entero/Rhino (PCR) Not detected 03/26/22 03/26/22 03/26/22 22:11 22:11 22:11 WBC RBC Hgb Hct MCV MCH MCHC RDW Plt Count Neut % (Auto) Lymph % (Auto) Weber % (Auto) Eos % (Auto) Baso % (Auto) Lymph # (Auto) Weber # (Auto) Baso # (Auto) PT INR APTT ABG pH ABG pCO2 ABG pO2 ABG HCO3 ABG Total CO2 ABG O2 Saturation ABG Base Excess FiO2 Sodium 132 L Potassium 3.2 L Chloride 93 L Carbon Dioxide 23 BUN 57 H Creatinine 3.15 H Estimated GFR 18 L BUN/Creatinine Ratio 18.1 Glucose 125 H Lactate 2.8 H Calcium 7.6 L Total Bilirubin 0.5 AST 32 ALT 24 Alkaline Phosphatase 63 Troponin I NT-Pro-B Natriuret Pep 9680 H Total Protein 7.1 Albumin 3.7 Globulin 3.4 Albumin/Globulin Ratio 1.1 Lipase 17 L Procalcitonin 58.3 H Serum , Qual Urine Color Urine Appearance Urine pH Ur Specific [place] Urine Protein Urine Glucose (UA) Urine Ketones Urine Occult Blood Urine Nitrate Urine Bilirubin Ur Bilirubin Confirm Urine Urobilinogen Ur Leukocyte Esterase Urine RBC Urine WBC Amorphous Sediment Urine Bacteria Hyaline Casts Ur Culture Indicated? U Opiates 300ng/mL cut Ur Oxycodone Screen Urine Methadone Screen Ur Barbiturates Screen U Tricyclic Antidepress Ur Phencyclidine Scrn Ur Amphetamines Screen U Methamphetamines Scrn Ur MDMA Scrn (Ecstasy) U Benzodiazepines Scrn Urine Cocaine Screen U Marijuana (THC) Screen Chlamy pneumoniae PCR Adenovirus (PCR) B. pertussis DNA (PCR) B.parapertussis DNA PCR Coronavirus OC43 (PCR) Coronavirus HKU1 (PCR) Coronavirus 229E (PCR) SARS-CoV-2 (PCR) Coronavirus NL63 (PCR) Human Metapneumovir PCR Influenza Type A (PCR) Influenza Type B (PCR) M. pneumoniae (PCR) Parainfluenza 1 (PCR) Parainfluenza 2 (PCR) Parainfluenza 3 (PCR) Parainfluenza 4 (PCR) RSV (PCR) Entero/Rhino (PCR) 03/26/22 03/26/22 03/27/22 22:11 22:11 00:22 WBC RBC Hgb Hct MCV MCH MCHC RDW Plt Count Neut % (Auto) Lymph % (Auto) Weber % (Auto) Eos % (Auto) Baso % (Auto) Lymph # (Auto) Weber # (Auto) Baso # (Auto) PT INR APTT ABG pH ABG pCO2 ABG pO2 ABG HCO3 ABG Total CO2 ABG O2 Saturation ABG Base Excess FiO2 Sodium Potassium Chloride Carbon Dioxide BUN Creatinine Estimated GFR BUN/Creatinine Ratio Glucose Lactate Calcium Total Bilirubin AST ALT Alkaline Phosphatase Troponin I < 0.012 NT-Pro-B Natriuret Pep Total Protein Albumin Globulin Albumin/Globulin Ratio Lipase Procalcitonin Serum , Qual Negative Urine Color Yellow Urine Appearance Cloudy Urine pH 5.0 Ur Specific [place] 1.025 Urine Protein 2+ H Urine Glucose (UA) Negative Urine Ketones Trace H Urine Occult Blood Negative Urine Nitrate Negative Urine Bilirubin 1+ H Ur Bilirubin Confirm Negative Urine Urobilinogen 0.2 Ur Leukocyte Esterase Trace H Urine RBC None seen Urine WBC 1-5/hpf Amorphous Sediment 4+ Urine Bacteria None seen Hyaline Casts 0-1/lpf Ur Culture Indicated? Specimen cultured U Opiates 300ng/mL cut Ur Oxycodone Screen Urine Methadone Screen Ur Barbiturates Screen U Tricyclic Antidepress Ur Phencyclidine Scrn Ur Amphetamines Screen U Methamphetamines Scrn Ur MDMA Scrn (Ecstasy) U Benzodiazepines Scrn Urine Cocaine Screen U Marijuana (THC) Screen Chlamy pneumoniae PCR Adenovirus (PCR) B. pertussis DNA (PCR) B.parapertussis DNA PCR Coronavirus OC43 (PCR) Coronavirus HKU1 (PCR) Coronavirus 229E (PCR) SARS-CoV-2 (PCR) Coronavirus NL63 (PCR) Human Metapneumovir PCR Influenza Type A (PCR) Influenza Type B (PCR) M. pneumoniae (PCR) Parainfluenza 1 (PCR) Parainfluenza 2 (PCR) Parainfluenza 3 (PCR) Parainfluenza 4 (PCR) RSV (PCR) Entero/Rhino (PCR) 03/27/22 03/27/22 03/27/22 00:22 00:39 00:41 WBC RBC Hgb Hct MCV MCH MCHC RDW Plt Count Neut % (Auto) Lymph % (Auto) Weber % (Auto) Eos % (Auto) Baso % (Auto) Lymph # (Auto) Weber # (Auto) Baso # (Auto) PT INR APTT ABG pH 7.23 L* ABG pCO2 45.5 H ABG pO2 48 L* ABG HCO3 19 L ABG Total CO2 21 ABG O2 Saturation 76 L* ABG Base Excess -8.0 L FiO2 100 Sodium Potassium Chloride Carbon Dioxide BUN Creatinine Estimated GFR BUN/Creatinine Ratio Glucose Lactate 2.0 Calcium Total Bilirubin AST ALT Alkaline Phosphatase Troponin I NT-Pro-B Natriuret Pep Total Protein Albumin Globulin Albumin/Globulin Ratio Lipase Procalcitonin Serum , Qual Urine Color Urine Appearance Urine pH Ur Specific [place] Urine Protein Urine Glucose (UA) Urine Ketones Urine Occult Blood Urine Nitrate Urine Bilirubin Ur Bilirubin Confirm Urine Urobilinogen Ur Leukocyte Esterase Urine RBC Urine WBC Amorphous Sediment Urine Bacteria Hyaline Casts Ur Culture Indicated? U Opiates 300ng/mL cut Negative Ur Oxycodone Screen Negative Urine Methadone Screen Negative Ur Barbiturates Screen Negative U Tricyclic Antidepress Negative Ur Phencyclidine Scrn Negative Ur Amphetamines Screen Negative U Methamphetamines Scrn Negative Ur MDMA Scrn (Ecstasy) Negative U Benzodiazepines Scrn Negative Urine Cocaine Screen Negative U Marijuana (THC) Screen Negative Chlamy pneumoniae PCR Adenovirus (PCR) B. pertussis DNA (PCR) B.parapertussis DNA PCR Coronavirus OC43 (PCR) Coronavirus HKU1 (PCR) Coronavirus 229E (PCR) SARS-CoV-2 (PCR) Coronavirus NL63 (PCR) Human Metapneumovir PCR Influenza Type A (PCR) Influenza Type B (PCR) M. pneumoniae (PCR) Parainfluenza 1 (PCR) Parainfluenza 2 (PCR) Parainfluenza 3 (PCR) Parainfluenza 4 (PCR) RSV (PCR) Entero/Rhino (PCR) 03/27/22 03:04 WBC RBC Hgb Hct MCV MCH MCHC RDW Plt Count Neut % (Auto) Lymph % (Auto) Weber % (Auto) Eos % (Auto) Baso % (Auto) Lymph # (Auto) Weber # (Auto) Baso # (Auto) PT INR APTT ABG pH 7.26 L* ABG pCO2 42.9 ABG pO2 50 L ABG HCO3 19 L ABG Total CO2 20 L ABG O2 Saturation 79 L* ABG Base Excess -8.0 L FiO2 100 Sodium Potassium Chloride Carbon Dioxide BUN Creatinine Estimated GFR BUN/Creatinine Ratio Glucose Lactate Calcium Total Bilirubin AST ALT Alkaline Phosphatase Troponin I NT-Pro-B Natriuret Pep Total Protein Albumin Globulin Albumin/Globulin Ratio Lipase Procalcitonin Serum , Qual Urine Color Urine Appearance Urine pH Ur Specific [place] Urine Protein Urine Glucose (UA) Urine Ketones Urine Occult Blood Urine Nitrate Urine Bilirubin Ur Bilirubin Confirm Urine Urobilinogen Ur Leukocyte Esterase Urine RBC Urine WBC Amorphous Sediment Urine Bacteria Hyaline Casts Ur Culture Indicated? U Opiates 300ng/mL cut Ur Oxycodone Screen Urine Methadone Screen Ur Barbiturates Screen U Tricyclic Antidepress Ur Phencyclidine Scrn Ur Amphetamines Screen U Methamphetamines Scrn Ur MDMA Scrn (Ecstasy) U Benzodiazepines Scrn Urine Cocaine Screen U Marijuana (THC) Screen Chlamy pneumoniae PCR Adenovirus (PCR) B. pertussis DNA (PCR) B.parapertussis DNA PCR Coronavirus OC43 (PCR) Coronavirus HKU1 (PCR) Coronavirus 229E (PCR) SARS-CoV-2 (PCR) Coronavirus NL63 (PCR) Human Metapneumovir PCR Influenza Type A (PCR) Influenza Type B (PCR) M. pneumoniae (PCR) Parainfluenza 1 (PCR) Parainfluenza 2 (PCR) Parainfluenza 3 (PCR) Parainfluenza 4 (PCR) RSV (PCR) Entero/Rhino (PCR) Assessment & Plan Assessment & Plan narrative: patient seen with bedside nurse, case discussed with Dr. Jansen chart/labs/imaging reviewed 41 year old female admitted to ICU with acute resp failure severe sepsis w/septic shock acute renal failure HAGMA currently febrile, Map 65 requiring levo at 15mcg, sedated intubated on 100% fi02 peep 8 tv 500 22 abg 7.26/44/50 wbc 1.6 creat 3.19 procal 58 lactate 2.0 bnnp 9800 cxr b/i infilates plan -neurochecks/seizure precautions -optimize sedation, goal RASS -1 for now, dc versed, uptitrate fent/propofol -will likely need paralytics and possible proning -vent support keep pH above 7.25, pa02 above 55 -chest pt/pulm toilet -cxr/abg prn, adjust vent as needed -check stat ekg/trop/echo then serial -pressor support, add vaso wean as tolerated -munoz cxs -broad spec abx -ivf to assess responsiveness, if no response would hold off -urine output inadequate at this time, if no improvement and acidosis would suggest HD -suggest to contact higher level of care asa for possible transfer -monitor ins/outs -replace lytes prn -npo for now, preprare for feeds -keep glucose 140-180s -gi/dvt ppx -please address goas of care and severity of illness with family when avaialble -pleae call eICU if condition changes Time Spent With Patient Critical Care time: I spent a total of [] minutes of critical care time on this patient's care today; this time is exclusive of procedural time.
--- NOTE | 2022-03-27 04:49 | DI.ECHO.S_ITS ---
[facility]---------+ [facility] +---------+ : : [address] : : : : [id number] : : : : Phone: [phone]+ Echocardiogram Report + + :Name: JERICHO TREJO Study Date: 03/27/2022 Height: 70 in : :[facility] ReadingLocation: Weight: 225 lb : : Gender: Female BSA: 2.2 m2 : :: 1980 Age: 41 yrs BP: 123/69 mmHg: :Reason For Study: SHOCK : :Ordering Physician: DENIZ, : :HERMANN Performed By: Monica Corado : :Referring: HERMANN GUAMAN : + + Interpretation Summary The ejection fraction is estimated to be 45-50%. Diastolic function could not be accurately assessed due to tachycardia. The left atrium is mildly dilated. The right ventricle is borderline dilated. The right ventricular systolic function is normal. No significant valvular abnormalities. Unable to estimate PASP. Procedure: A two-dimensional transthoracic echocardiogram with color flow and Doppler was performed. The study quality was technically difficult. There is no prior echocardiogram noted for this patient. The patient was in sinus tachycardia with heart rates between 111-113 bpm during the exam. Left Ventricle: The left ventricle is normal in size and wall thickness. The ejection fraction is estimated to be 45-50%. Diastolic function could not be accurately assessed due to tachycardia. Right Ventricle: The right ventricle is borderline dilated. The right ventricular systolic function is normal. Atria: The left atrium is mildly dilated. Right atrial size is normal. There is no Doppler evidence for an interatrial shunt. Mitral Valve: The mitral valve is normal in structure and function. There is no mitral regurgitation noted. Aortic Valve: The aortic valve is not well visualized. There is no aortic valve stenosis. No aortic regurgitation is present. Tricuspid Valve: The tricuspid valve is normal in structure and function. There is trace tricuspid regurgitation. Pulmonary artery pressures cannot be estimated because of the lack of a measurable TR jet velocity. Pulmonic Valve: The pulmonic valve is not well visualized. Great Vessels: The aortic root is normal size. The ascending aorta could not be visualized. Inspiratory collapse cannot be assessed because of mechanical ventilation, thus CVP cannot be estimated.. Pericardium/ Pleura There is no pericardial effusion. There is no pleural effusion. MMode/2D Measurements & Calculations LVIDd: 4.8 cm LVOT diam: 2.1 cm LVIDs: 3.8 cm Ao root diam: 2.7 cm FS: 21.1 % IVSd: 0.72 cm LVPWd: 0.77 cm LV guerin. diameter/BSA (cm/m^2): 2.2 LV sys. diameter/BSA (cm/m^2): 1.7 LA A2 area: 27.0 cm2 RA long axis: 4.9 cm LA A4 area: 19.3 cm2 RA area: 16.7 cm2 LA length (vol): 5.3 cm RA vol: 48.1 ml LA vol: 83.5 ml RA : 21.9 ml/m2 LA vol index: 38.0 ml/m2 IVC diam: 2.6 cm RVD1 (basal): 4.1 cm RVD2 (mid): 3.3 cm TAPSE: 2.2 cm Doppler Measurements & Calculations Ao V2 max: 148.9 cm/sec LVOT Max Andrey: 123.5 cm/sec Ao V2 mean: 104.3 cm/sec LV V1 max P.1 mmHg Ao max P.9 mmHg LV V1 VTI: 19.8 cm Ao mean P.9 mmHg PAM(I,D): 2.7 cm2 Ao V2 VTI: 25.4 cm PAM(V,D): 2.9 cm2 sev ratio: 0.78 PAM indexed to BSA (cm^2/m^2): 1.2 Med Peak E' Andrey: 39.1 cm/sec TR max andrey: 256.9 cm/sec Lat Peak E' Andrey: 17.2 cm/sec TR max P.4 mmHg MV dec time: 0.07 sec PA V2 max: 108.1 cm/sec PA V2 mean: 77.3 cm/sec PA mean P.7 mmHg PA pr(Accel): 31.0 mmHg SV(LVOT): 68.4 ml Reading Physician:04:36 PM
[2022-03-27] MEDS: fentaNYL 1,000 MCG in DEXTROSE 5% IN WATER 230 ML 47.627 MCG IV ×2 (05:15→10:31)
[2022-03-27] MEDS: HYDROCORTISONE 100 MG/2 ML VIAL 50 MG IV ×3 (05:16→17:54)
[2022-03-27 05:27] LABS: HCO3 ABG 19 mmol/L (22-26); Oxygen Saturation ABG 81 % (95-100); PCO2 ABG 40.6 mmHg (35-45); PO2 ABG 51 mmHg (80-100); TCO2 ABG 20 mmol/L (21-31); pH ABG 7.27 (7.35-7.45)
[2022-03-27 05:28] LABS: Fractionated Inspired Oxygen 100
[2022-03-27] MEDS: NOREPINEPHRINE BITARTRATE/D5W 4 MG/250 ML PLAST..BAG 56.25 MG IV (05:31)
[2022-03-27 05:41] LABS: Creatine Kinase 87 U/L (30-135)
[2022-03-27 05:44] LABS: Cholesterol 114 mg/dL (140-199); HDL Cholesterol 18 mg/dL (40-60); LDL Cholesterol Calculated 30 mg/dL (<100); Magnesium 1.4 mg/dL (1.6-2.3); Triglycerides 329 mg/dL (35-150)
[2022-03-27] MEDS: VASOPRESSIN 20 UNIT/ML VIAL IV (05:47)
[2022-03-27] MEDS: VASOPRESSIN 40 UNIT in SODIUM CHLORIDE 0.9% 98 ML 6 UNIT IV ×2 (05:47→20:42)
[2022-03-27 05:53] LABS: NT-proBNP (BNP-Adult 18+) 10900 pg/mL (<125)
[2022-03-27 05:55] LABS: Troponin I 0.057 ng/mL (0.01-0.034)
[2022-03-27 06:00] LABS: Procalcitonin 39.2 ng/mL (<0.5)
[2022-03-27 06:46] LABS: Thyroid Stimulating Hormone 5.43 uIU/mL (0.47-4.68)
[2022-03-27 06:50] LABS: Neutrophils Absolute Manual 800 /uL (3000-5900); RBC Morphology Normal Morphology; Total Cells Counted 100
[2022-03-27 06:58] LABS: Hematocrit 31.6 % (36-46); Hemoglobin 10.9 g/dL (12.0-16.0); Mean Corpuscular Volume 87.8 fL (80-100)
[2022-03-27 06:59] LABS: Basophils Absolute Auto 0 /uL (0-100); Basophils Percent Auto 0.3 % (0-2); Eosinophils Absolute Auto 0 /uL (0-450); Eosinophils Percent Auto 0.6 % (2-4); Lymphocytes Absolute Auto 0 /uL (1100-4500); Lymphocytes Percent Auto 22.1 % (25-40); Mean Corpuscular HGB Conc 34.4 % (30-36); Mean Corpuscular Hemoglobin 30.2 PG (26-34); Monocytes Absolute Auto 0 /uL (0-900); Monocytes Percent Auto 1.8 % (3-14); Neutrophils Absolute Auto 0 /uL (1500-7000); Neutrophils Percent Auto 75.2 % (50-75); Platelet Count 169 X10^3/uL (150-400); Red Cell Distribution Width 40.7 % (11.6-14.8)
[2022-03-27 07:00] LABS: Add Manual Diff / Slide Review NO; White Blood Cell Count 0.5 X10^3/uL (4.5-11.0)
[2022-03-27 07:01] LABS: RBC Morphology Normal Morphology
[2022-03-27 07:09] LABS: Alanine Aminotransferase 26 IU/L (<35); Albumin 2.5 g/dL (3.5-5.0); Albumin Globulin Ratio 1.3 (1.0-2.8); Alkaline Phosphatase 47 U/L (38-126); Aspartate Aminotransferase 41 IU/L (14-36); BUN Creatinine Ratio 22.9 (6-22); Bilirubin Total 0.2 mg/dL (0.2-1.3); Blood Urea Nitrogen 57 mg/dL (7-17); Carbon Dioxide 18 mmol/L (22-32); Chloride 99 mmol/L (98-107); Estimated Glomerular Filt Rate 24 mL/min (>60); Glucose 117 mg/dL (70-100); HEMOLYSIS < 15 (0-50); Potassium 3.5 mmol/L (3.4-5.1); Sodium 131 mmol/L (137-145); Total Protein 4.5 g/dL (6.3-8.2)
[2022-03-27] MEDS: MAGNESIUM SULFATE 2 GM/50 ML PIGGYBACK IV (07:14)
[2022-03-27] MEDS: EPINEPHrine 4 MG in DEXTROSE 5% IN WATER 246 ML 3.75 MG IV (07:28)
[2022-03-27] MEDS: ACETAMINOPHEN 325 MG SUPP PR (07:33)
--- NOTE | 2022-03-27 08:39 | DI.US.S_ITS ---
PROCEDURE: US PERIPH VENOUS LOW EXTREM BI INDICATIONS: SHORTNESS OF BREATH TECHNIQUE: Real-time imaging, as well as color and pulse Doppler interrogation, were performed of the deep veins of both legs from the inguinal ligament to the popliteal fossa. COMPARISON: None. FINDINGS: Right: The common femoral, femoral and popliteal veins are normally compressible, and free of intraluminal thrombus. Color and pulse Doppler demonstrate normal phasic intravascular flow. There is normal augmentation response to distal compression maneuver. Left: The common femoral, femoral and popliteal veins are normally compressible, and free of intraluminal thrombus. Color and pulse Doppler demonstrate normal phasic intravascular flow. There is normal augmentation response to distal compression maneuver. IMPRESSION: No deep venous thrombosis. Dictated by: Odessa Snyder M.D. on 03/27/2022 at 11:00 Approved by: Odessa Snyder M.D. on 03/27/2022 at 11:01
[2022-03-27] MEDS: NOREPINEPHRINE 8 MG in DEXTROSE 5% IN WATER 250 ML 15.48 MG IV (09:06)
[2022-03-27 09:18] LABS: HCO3 ABG 16 mmol/L (22-26); Oxygen Saturation ABG 79 % (95-100); PO2 ABG 53 mmHg (80-100); TCO2 ABG 17 mmol/L (21-31)
[2022-03-27 09:19] LABS: Fractionated Inspired Oxygen 100
[2022-03-27] MEDS: PANTOPRAZOLE 40 MG VIAL IV (09:33)
[2022-03-27] MEDS: ENOXAPARIN 30 MG/0.3 ML SYRINGE SUBCUT (09:33)
[2022-03-27] MEDS: SODIUM BICARB 8.4% SYRINGE 50 MEQ IV ×2 (09:34→10:58)
[2022-03-27] MEDS: HYDROCORTISONE 100 MG/2 ML VIAL IV (09:51)
[2022-03-27] MEDS: SODIUM BICARB 8.4% VIAL 100 MEQ in DEXTROSE 5% WATER 1,000 ML 150 MEQ IV ×2 (09:56→18:12)
[2022-03-27 09:58] LABS: D Dimer 4141 ng/ml (<500)
[2022-03-27 10:01] LABS: Creatine Kinase 93 U/L (30-135); Lactate (Lactic Acid) 1.5 mmol/L (0.7-2.1)
[2022-03-27] MEDS: DEXTROSE 5% IV ×4 (10:03→21:57)
[2022-03-27] MEDS: EPINEPHRINE IV ×2 (10:03→21:57)
[2022-03-27] MEDS: WATER IV ×4 (10:03→21:57)
--- NOTE | 2022-03-27 10:04 | DI.RAD.S_ITS ---
PROCEDURE: XR CHEST 1V INDICATIONS: rule out ptx TECHNIQUE: One view of the chest was acquired. COMPARISON: [facility], CR, XR CHEST 1V, 03/27/2022, 3:04. FINDINGS: Surgical changes and devices: Presumed nasogastric tube is seen. However, distal tip is not well identified secondary to exposure. Endotracheal tube remains present, as does partially visualized right-sided catheter. Only the proximal portion is visualized secondary to exposure.. Lungs and pleura: There is unchanged opacification of the right upper lobe. Increased progressive opacity is noted within the left lung particularly the left lower lobe and retrocardiac region. Mediastinum: Mediastinal contours appear normal. Heart size is normal. Bones and chest wall: No suspicious bony lesions. Overlying soft tissues appear unremarkable. IMPRESSION: Interval worsening of pulmonary opacities. Support lines as above, only partially visualized. Dictated by: Odessa Snyder M.D. on 03/27/2022 at 11:01 Approved by: Odessa Snyder M.D. on 03/27/2022 at 11:02
[2022-03-27 10:14] LABS: Troponin I 0.095 ng/mL (0.01-0.034); Troponin I 0.096 ng/mL (0.01-0.034)
[2022-03-27] MEDS: ALBUMIN HUMAN 25 GM/100 ML VIAL IV (10:35)
[2022-03-27] MEDS: SODIUM CHLORIDE 0.9% 1,000 ML 1000 ML IV (10:59)
[2022-03-27 11:17] LABS: HCO3 ABG 16 mmol/L (22-26); Oxygen Saturation ABG 97 % (95-100); PCO2 ABG 39.4 mmHg (35-45); PO2 ABG 110 mmHg (80-100); TCO2 ABG 17 mmol/L (21-31); pH ABG 7.22 (7.35-7.45)
[2022-03-27 11:18] LABS: Fractionated Inspired Oxygen 100
[2022-03-27] MEDS: CHLORHEXIDINE GLUCONATE 15 ML CUP PO ×3 (11:59→23:09)
--- NOTE | 2022-03-27 12:07 | DIET.CONS2 ---
Dietary Inpatient Consultation Note Admission Date: 03/27/2022 00:21 RD met with nursing regarding 41y F admitted with SOB requiring intubation. Pt not on propofol, however, also on significant pressors. Concern regarding adquate enteric perfusion at this time. Recc waiting to initiate TF until afternoon or tomorrow morning. 03/26/22 22:03 NPO Diet Diet Modifications: NPO Type: NPO except for Meds Electronically Signed by: Elizabeth Zaman 03/27/22 12:07 Clinical Dietitian [address] [address]
[2022-03-27] MEDS: fentaNYL 100 MCG/2 ML INJ 50 MCG IV (13:31)
[2022-03-27] MEDS: MIDAZOLAM 2 MG/2 ML VIAL 4 MG IV (13:32)
[2022-03-27 14:49] LABS: Creatine Kinase 198 U/L (30-135)
--- NOTE | 2022-03-27 14:49 | PM.HP.1 ---
History of Present Illness History of Present Illness Date Patient Seen: 03/27/22 Time Patient Seen: 03:00 Chief complaint: SOB, Fever, Body aches, Vomiting Narrative: Stephan Yepez is a 41-year-old female without past medical history or medications presented to ED with cough fever and shortness of breath sick x4 day with body aches fevers and chills and decreased output as well. Presented in obvious respiratory distress and hypoxic.?She reported that she vape and uses Kratom, feels like she can not breathe and her lungs are tired.?Denied abdominal pain nausea vomiting or diarrhea.? She has traveled anywhere. Per Dr. Tavarez ED:Patient presents in obvious respiratory distress.? X-ray shows bilateral significant pneumonia.? His respiratory panel a surprisingly weak.? She was initially put on nasal cannula for brief moment and then switched to high-flow nasal cannula.? She did not like how it felt and did not tolerate.? she was switched over to BiPAP which she did a little bit better.? However she is still quite tachypneic not tolerating BiPAP and needed intubation.? She was intubated and started on vasopressors for hypotension.? She is given prophylactic antibiotics as well Rocephin azithromycin for community-acquired pneumonia is.? No to on 100% was 45 here in the ED. she is found have acute kidney injury with a creatinine of 3.15 as well.? Love catheters placed monitoring in & out.? She is given sepsis fluid boluses. Patient unable to participate in admit, arrived on the floor intubated and sedated. Patient's mother was at the bedside at the time of admit and stated that her daughter took no medications, had no medical conditions, did not use any substances, or alcohol. Critical care bed side for >60 min for critical care admit. admit 99.2, 103/64, 106, 30, 92% on 100%, TV 500, peep 8, Rate 22, wbc 1.6, na 132, cl 93, 57, K3.2, surgical elastic knitter hand frame 3.15, bs 125, ca 7.6, grf 18-Gap 16, CCL 35, SOFA:6, Curb -65:2, Lac 2, proc 58.3, BNP 9680, ABG: ph 7.23, pco2 45.5, p02 48, Hc03 19, 02 sat 76% base excess-8, FiO2 100. Patient's initial chest x-ray in the ED demonstrated right upper lobe suprahilar airspace opacities peripheral left basilar opacities without pleural effusion or pneumothorax repeat chest x-ray demonstrated correct tube placement. Patient was admitted for sepsis with septic shock, acute respiratory failure with hypoxia, hypercapnia,respiratory & metabolic acidosis, secondary to pneumonia, intubated with BRAIN, and acute heart failure. Patient History Family & Social History Safety & Behavioral: Feels Safe in Current Yes Environment Been Physically Hurt or No Threatened By a Person Tobacco & Substance use: Smoking Status Unknown if ever smoked Substance Use Type unknown Meds Home Medications and Allergies Allergies Allergy/AdvReac Type Severity Reaction Status Date / Time No Known Drug Allergies Allergy Verified 03/26/22 22:02 Review of Systems Review of Systems Narrative: unable to obtain due to intubation Exam Vital Signs (past 8 hours): - 03/27/22 07:00 03/27/22 07:00 03/27/22 07:15 Temperature Pulse Rate 116 H 116 H Respiratory Rate 25 H 25 H Blood Pressure 86/61 L Pulse Oximetry 87 L 89 L Oxygen Delivery Method Fraction of Inspired Oxygen 03/27/22 07:15 03/27/22 07:18 03/27/22 07:18 Temperature Pulse Rate 118 H Respiratory Rate 25 H Blood Pressure 79/51 L 104/55 L Pulse Oximetry 86 L Oxygen Delivery Method Fraction of Inspired Oxygen 03/27/22 07:25 03/27/22 07:25 03/27/22 07:27 Temperature Pulse Rate 115 H Respiratory Rate 25 H Blood Pressure 90/54 L 90/57 L Pulse Oximetry 87 L Oxygen Delivery Method Fraction of Inspired Oxygen 03/27/22 07:27 03/27/22 07:30 03/27/22 07:30 Temperature Pulse Rate 120 H 119 H Respiratory Rate 28 H 26 H Blood Pressure 85/54 L Pulse Oximetry 88 L 90 L Oxygen Delivery Method Fraction of Inspired Oxygen 03/27/22 07:45 03/27/22 07:45 03/27/22 07:00 Temperature Pulse Rate 116 H Respiratory Rate 25 H Blood Pressure 84/46 L Pulse Oximetry 89 L Oxygen Delivery Method Mechanical Ventilation Fraction of Inspired Oxygen 03/27/22 08:00 03/27/22 08:00 03/27/22 08:15 Temperature Pulse Rate 118 H Respiratory Rate 25 H Blood Pressure 86/50 L 89/51 L Pulse Oximetry 89 L Oxygen Delivery Method Fraction of Inspired Oxygen 03/27/22 08:15 03/27/22 08:19 03/27/22 08:19 Temperature Pulse Rate 119 H 113 H Respiratory Rate 25 H 25 H Blood Pressure 105/50 L Pulse Oximetry 91 88 L Oxygen Delivery Method Fraction of Inspired Oxygen 03/27/22 08:30 03/27/22 08:30 03/27/22 08:46 Temperature Pulse Rate 115 H Respiratory Rate 25 H Blood Pressure 101/53 L 111/57 L Pulse Oximetry 86 L Oxygen Delivery Method Fraction of Inspired Oxygen 03/27/22 08:46 03/27/22 09:00 03/27/22 09:00 Temperature Pulse Rate 113 H 110 H Respiratory Rate 25 H 25 H Blood Pressure 101/58 L Pulse Oximetry 88 L 86 L Oxygen Delivery Method Fraction of Inspired Oxygen 03/27/22 09:15 03/27/22 09:15 03/27/22 09:30 Temperature Pulse Rate 105 H Respiratory Rate 24 Blood Pressure 85/50 L 84/53 L Pulse Oximetry 84 L Oxygen Delivery Method Fraction of Inspired Oxygen 03/27/22 09:30 03/27/22 09:45 03/27/22 09:45 Temperature Pulse Rate 108 H 115 H Respiratory Rate 25 H 25 H Blood Pressure 124/55 L Pulse Oximetry 84 L 80 L Oxygen Delivery Method Fraction of Inspired Oxygen 03/27/22 10:00 03/27/22 10:00 03/27/22 10:05 Temperature Pulse Rate 116 H 120 H Respiratory Rate 35 H 33 H Blood Pressure 122/57 L Pulse Oximetry Oxygen Delivery Method Fraction of Inspired Oxygen 03/27/22 10:05 03/27/22 10:16 03/27/22 10:16 Temperature Pulse Rate 109 H Respiratory Rate 33 H Blood Pressure 119/58 L 113/56 L Pulse Oximetry 96 Oxygen Delivery Method Fraction of Inspired Oxygen 03/27/22 10:30 03/27/22 10:30 03/27/22 10:45 Temperature Pulse Rate 110 H Respiratory Rate 34 H Blood Pressure 106/55 L 115/53 L Pulse Oximetry 93 Oxygen Delivery Method Fraction of Inspired Oxygen 03/27/22 10:45 03/27/22 11:00 03/27/22 11:00 Temperature Pulse Rate 110 H 112 H Respiratory Rate 33 H 33 H Blood Pressure 123/67 Pulse Oximetry 96 98 Oxygen Delivery Method Fraction of Inspired Oxygen 03/27/22 11:15 03/27/22 11:15 03/27/22 11:30 Temperature Pulse Rate 111 H Respiratory Rate 33 H Blood Pressure 119/69 129/73 Pulse Oximetry 97 Oxygen Delivery Method Fraction of Inspired Oxygen 03/27/22 11:30 03/27/22 11:45 03/27/22 11:45 Temperature Pulse Rate 109 H 107 H Respiratory Rate 33 H 33 H Blood Pressure 131/77 Pulse Oximetry 96 96 Oxygen Delivery Method Fraction of Inspired Oxygen 03/27/22 12:00 03/27/22 12:00 03/27/22 12:15 Temperature Pulse Rate 108 H Respiratory Rate 33 H Blood Pressure 134/81 121/77 Pulse Oximetry 94 Oxygen Delivery Method Fraction of Inspired Oxygen 03/27/22 12:15 03/27/22 12:30 03/27/22 12:30 Temperature Pulse Rate 108 H 108 H Respiratory Rate 33 H 33 H Blood Pressure 124/75 Pulse Oximetry 90 L 91 Oxygen Delivery Method Fraction of Inspired Oxygen 03/27/22 12:45 03/27/22 12:45 03/27/22 13:00 Temperature Pulse Rate 107 H Respiratory Rate 33 H Blood Pressure 119/71 120/69 Pulse Oximetry 90 L Oxygen Delivery Method Fraction of Inspired Oxygen 03/27/22 13:00 03/27/22 13:15 03/27/22 13:15 Temperature Pulse Rate 107 H 122 H Respiratory Rate 31 H 22 Blood Pressure 124/79 Pulse Oximetry 94 92 Oxygen Delivery Method Fraction of Inspired Oxygen 03/27/22 13:30 03/27/22 13:30 03/27/22 13:52 Temperature 99.7 F H Pulse Rate 116 H 116 H Respiratory Rate 16 33 H Blood Pressure 113/63 100/57 L Pulse Oximetry 96 96 Oxygen Delivery Method Fraction of Inspired Oxygen 90 03/27/22 13:45 03/27/22 13:45 Temperature Pulse Rate 117 H Respiratory Rate 22 Blood Pressure 111/66 Pulse Oximetry 95 Oxygen Delivery Method Fraction of Inspired Oxygen Fraction of Inspired Oxygen 90 Oxygen Delivery Method Mechanical Ventilation Narrative Exam Narrative: General:? Patient is a well-developed, well-nourished female obese female, heavily sedated intubated with orogastric tube right central line, and Love catheter, stable vitals, blood pressures are slightly soft, mild tachypnea continues. Patient is in no acute distress at this time HEENT:? Normocephalic, atraumatic, ? Neck is supple and symmetric, central line-right, trachea is midline, no adenopathy or masses palpated.? Negative for JVD Chest:? Normal AP diameter and contour without kyphoscoliosis, no nasal flaring, retractions, or labored breathing, continued tachypnea Lungs:? Auscultation of all lung betancur are coarse good air exchange equal throughout. Cardio:? Tachycardic regular rate and rhythm without murmur, rubs, or gallops, no carotid bruit, no cardiac pulsations present. Abdomen:? Soft nontender, possibly slightly distended unable to know if this is patient's baseline, negative for organomegaly, or masses.? Bowel sounds are hypoactive present in all 4 quadrants without guarding or rebound, no CVA tenderness. Musculoskeletal:? Muscle tone appears equal, no obvious deformity, crepitus, effusions, cyanosis, clubbing observed. Positive bilateral +1 lower extremity edema even nonpitting from trunk to toes. Patient currently in soft wrist restraints, due to her attempts in the ED to remove lines Love. Patient waking intermittently due to lack of sedation appears to move all extremities, intact radial and pedal pulses are normal. Skin:? Cold, severe diaphoresis, and intact without rashes, ulcerations or petechiae.? Neuro:? Sedated, intermittently wakes moves all extremities, sensation to touch intact . Psych:? Unable to assess due to sedation and intubation Objective Labs Result Diagrams: 03/27/22 15:52 03/27/22 15:52 Labs: Laboratory Results - last 24 hr 03/26/22 03/26/22 03/26/22 22:10 22:11 22:11 WBC 1.6 L* RBC 4.21 Hgb 12.4 Hct 37.1 MCV 88.0 MCH 29.5 MCHC 33.5 RDW 13.0 Plt Count 201 Neut % (Auto) Not Reportable Lymph % (Auto) Not Reportable [place] % (Auto) Not Reportable Eos % (Auto) Not Reportable Baso % (Auto) Not Reportable Neut # (Auto) Lymph # (Auto) Not Reportable [place] # (Auto) Not Reportable Eos # (Auto) Baso # (Auto) Not Reportable Total Counted 100 Seg Neutrophils % 45.0 Band Neutrophils % 5.0 Lymphocytes % (Manual) 18.0 L Atypical Lymphs % 16.0 H Monocytes % (Manual) 16.0 H Neutrophils # (Manual) 800 L RBC Morphology Normal morphology PT 15.0 H INR 1.3 APTT 26 D-Dimer ABG pH ABG pCO2 ABG pO2 ABG HCO3 ABG Total CO2 ABG O2 Saturation ABG Base Excess FiO2 Sodium Potassium Chloride Carbon Dioxide BUN Creatinine Estimated GFR BUN/Creatinine Ratio Glucose Lactate Calcium Magnesium Total Bilirubin AST ALT Alkaline Phosphatase Total Creatine Kinase CK-MB (CK-2) CK-MB (CK-2) Rel Index Troponin I NT-Pro-B Natriuret Pep Total Protein Albumin Globulin Albumin/Globulin Ratio Triglycerides Cholesterol LDL Cholesterol, Calc HDL Cholesterol Lipase Procalcitonin TSH Serum , Qual Urine Color Urine Appearance Urine pH Ur Specific [place] Urine Protein Urine Glucose (UA) Urine Ketones Urine Occult Blood Urine Nitrate Urine Bilirubin Ur Bilirubin Confirm Urine Urobilinogen Ur Leukocyte Esterase Urine RBC Urine WBC Amorphous Sediment Urine Bacteria Hyaline Casts Ur Culture Indicated? Nasal Screen MRSA (PCR) U Opiates 300ng/mL cut Ur Oxycodone Screen Urine Methadone Screen Ur Barbiturates Screen U Tricyclic Antidepress Ur Phencyclidine Scrn Ur Amphetamines Screen U Methamphetamines Scrn Ur MDMA Scrn (Ecstasy) U Benzodiazepines Scrn Urine Cocaine Screen U Marijuana (THC) Screen Chlamy pneumoniae PCR Not detected Adenovirus (PCR) Not detected B. pertussis DNA (PCR) Not detected B.parapertussis DNA PCR Not detected Coronavirus OC43 (PCR) Not detected Coronavirus HKU1 (PCR) Not detected Coronavirus 229E (PCR) Not detected SARS-CoV-2 (PCR) Not detected Coronavirus NL63 (PCR) Not detected Human Metapneumovir PCR Not detected Influenza Type A (PCR) Not detected Influenza Type B (PCR) Not detected M. pneumoniae (PCR) Not detected Parainfluenza 1 (PCR) Not detected Parainfluenza 2 (PCR) Not detected Parainfluenza 3 (PCR) Not detected Parainfluenza 4 (PCR) Not detected RSV (PCR) Not detected Entero/Rhino (PCR) Not detected 03/26/22 03/26/22 03/26/22 22:11 22:11 22:11 WBC RBC Hgb Hct MCV MCH MCHC RDW Plt Count Neut % (Auto) Lymph % (Auto) [place] % (Auto) Eos % (Auto) Baso % (Auto) Neut # (Auto) Lymph # (Auto) [place] # (Auto) Eos # (Auto) Baso # (Auto) Total Counted Seg Neutrophils % Band Neutrophils % Lymphocytes % (Manual) Atypical Lymphs % Monocytes % (Manual) Neutrophils # (Manual) RBC Morphology PT INR APTT D-Dimer ABG pH ABG pCO2 ABG pO2 ABG HCO3 ABG Total CO2 ABG O2 Saturation ABG Base Excess FiO2 Sodium 132 L Potassium 3.2 L Chloride 93 L Carbon Dioxide 23 BUN 57 H Creatinine 3.15 H Estimated GFR 18 L BUN/Creatinine Ratio 18.1 Glucose 125 H Lactate 2.8 H Calcium 7.6 L Magnesium Total Bilirubin 0.5 AST 32 ALT 24 Alkaline Phosphatase 63 Total Creatine Kinase CK-MB (CK-2) CK-MB (CK-2) Rel Index Troponin I NT-Pro-B Natriuret Pep 9680 H Total Protein 7.1 Albumin 3.7 Globulin 3.4 Albumin/Globulin Ratio 1.1 Triglycerides Cholesterol LDL Cholesterol, Calc HDL Cholesterol Lipase 17 L Procalcitonin 58.3 H TSH Serum , Qual Urine Color Urine Appearance Urine pH Ur Specific [place] Urine Protein Urine Glucose (UA) Urine Ketones Urine Occult Blood Urine Nitrate Urine Bilirubin Ur Bilirubin Confirm Urine Urobilinogen Ur Leukocyte Esterase Urine RBC Urine WBC Amorphous Sediment Urine Bacteria Hyaline Casts Ur Culture Indicated? Nasal Screen MRSA (PCR) U Opiates 300ng/mL cut Ur Oxycodone Screen Urine Methadone Screen Ur Barbiturates Screen U Tricyclic Antidepress Ur Phencyclidine Scrn Ur Amphetamines Screen U Methamphetamines Scrn Ur MDMA Scrn (Ecstasy) U Benzodiazepines Scrn Urine Cocaine Screen U Marijuana (THC) Screen Chlamy pneumoniae PCR Adenovirus (PCR) B. pertussis DNA (PCR) B.parapertussis DNA PCR Coronavirus OC43 (PCR) Coronavirus HKU1 (PCR) Coronavirus 229E (PCR) SARS-CoV-2 (PCR) Coronavirus NL63 (PCR) Human Metapneumovir PCR Influenza Type A (PCR) Influenza Type B (PCR) M. pneumoniae (PCR) Parainfluenza 1 (PCR) Parainfluenza 2 (PCR) Parainfluenza 3 (PCR) Parainfluenza 4 (PCR) RSV (PCR) Entero/Rhino (PCR) 03/26/22 03/26/22 03/27/22 22:11 22:11 00:22 WBC RBC Hgb Hct MCV MCH MCHC RDW Plt Count Neut % (Auto) Lymph % (Auto) [place] % (Auto) Eos % (Auto) Baso % (Auto) Neut # (Auto) Lymph # (Auto) [place] # (Auto) Eos # (Auto) Baso # (Auto) Total Counted Seg Neutrophils % Band Neutrophils % Lymphocytes % (Manual) Atypical Lymphs % Monocytes % (Manual) Neutrophils # (Manual) RBC Morphology PT INR APTT D-Dimer ABG pH ABG pCO2 ABG pO2 ABG HCO3 ABG Total CO2 ABG O2 Saturation ABG Base Excess FiO2 Sodium Potassium Chloride Carbon Dioxide BUN Creatinine Estimated GFR BUN/Creatinine Ratio Glucose Lactate Calcium Magnesium Total Bilirubin AST ALT Alkaline Phosphatase Total Creatine Kinase CK-MB (CK-2) CK-MB (CK-2) Rel Index Troponin I < 0.012 NT-Pro-B Natriuret Pep Total Protein Albumin Globulin Albumin/Globulin Ratio Triglycerides Cholesterol LDL Cholesterol, Calc HDL Cholesterol Lipase Procalcitonin TSH Serum , Qual Negative Urine Color Yellow Urine Appearance Cloudy Urine pH 5.0 Ur Specific [place] 1.025 Urine Protein 2+ H Urine Glucose (UA) Negative Urine Ketones Trace H Urine Occult Blood Negative Urine Nitrate Negative Urine Bilirubin 1+ H Ur Bilirubin Confirm Negative Urine Urobilinogen 0.2 Ur Leukocyte Esterase Trace H Urine RBC None seen Urine WBC 1-5/hpf Amorphous Sediment 4+ Urine Bacteria None seen Hyaline Casts 0-1/lpf Ur Culture Indicated? Specimen cultured Nasal Screen MRSA (PCR) U Opiates 300ng/mL cut Ur Oxycodone Screen Urine Methadone Screen Ur Barbiturates Screen U Tricyclic Antidepress Ur Phencyclidine Scrn Ur Amphetamines Screen U Methamphetamines Scrn Ur MDMA Scrn (Ecstasy) U Benzodiazepines Scrn Urine Cocaine Screen U Marijuana (THC) Screen Chlamy pneumoniae PCR Adenovirus (PCR) B. pertussis DNA (PCR) B.parapertussis DNA PCR Coronavirus OC43 (PCR) Coronavirus HKU1 (PCR) Coronavirus 229E (PCR) SARS-CoV-2 (PCR) Coronavirus NL63 (PCR) Human Metapneumovir PCR Influenza Type A (PCR) Influenza Type B (PCR) M. pneumoniae (PCR) Parainfluenza 1 (PCR) Parainfluenza 2 (PCR) Parainfluenza 3 (PCR) Parainfluenza 4 (PCR) RSV (PCR) Entero/Rhino (PCR) 03/27/22 03/27/22 03/27/22 00:22 00:39 00:41 WBC RBC Hgb Hct MCV MCH MCHC RDW Plt Count Neut % (Auto) Lymph % (Auto) [place] % (Auto) Eos % (Auto) Baso % (Auto) Neut # (Auto) Lymph # (Auto) [place] # (Auto) Eos # (Auto) Baso # (Auto) Total Counted Seg Neutrophils % Band Neutrophils % Lymphocytes % (Manual) Atypical Lymphs % Monocytes % (Manual) Neutrophils # (Manual) RBC Morphology PT INR APTT D-Dimer ABG pH 7.23 L* ABG pCO2 45.5 H ABG pO2 48 L* ABG HCO3 19 L ABG Total CO2 21 ABG O2 Saturation 76 L* ABG Base Excess -8.0 L FiO2 100 Sodium Potassium Chloride Carbon Dioxide BUN Creatinine Estimated GFR BUN/Creatinine Ratio Glucose Lactate 2.0 Calcium Magnesium Total Bilirubin AST ALT Alkaline Phosphatase Total Creatine Kinase CK-MB (CK-2) CK-MB (CK-2) Rel Index Troponin I NT-Pro-B Natriuret Pep Total Protein Albumin Globulin Albumin/Globulin Ratio Triglycerides Cholesterol LDL Cholesterol, Calc HDL Cholesterol Lipase Procalcitonin TSH Serum , Qual Urine Color Urine Appearance Urine pH Ur Specific [place] Urine Protein Urine Glucose (UA) Urine Ketones Urine Occult Blood Urine Nitrate Urine Bilirubin Ur Bilirubin Confirm Urine Urobilinogen Ur Leukocyte Esterase Urine RBC Urine WBC Amorphous Sediment Urine Bacteria Hyaline Casts Ur Culture Indicated? Nasal Screen MRSA (PCR) U Opiates 300ng/mL cut Negative Ur Oxycodone Screen Negative Urine Methadone Screen Negative Ur Barbiturates Screen Negative U Tricyclic Antidepress Negative Ur Phencyclidine Scrn Negative Ur Amphetamines Screen Negative U Methamphetamines Scrn Negative Ur MDMA Scrn (Ecstasy) Negative U Benzodiazepines Scrn Negative Urine Cocaine Screen Negative U Marijuana (THC) Screen Negative Chlamy pneumoniae PCR Adenovirus (PCR) B. pertussis DNA (PCR) B.parapertussis DNA PCR Coronavirus OC43 (PCR) Coronavirus HKU1 (PCR) Coronavirus 229E (PCR) SARS-CoV-2 (PCR) Coronavirus NL63 (PCR) Human Metapneumovir PCR Influenza Type A (PCR) Influenza Type B (PCR) M. pneumoniae (PCR) Parainfluenza 1 (PCR) Parainfluenza 2 (PCR) Parainfluenza 3 (PCR) Parainfluenza 4 (PCR) RSV (PCR) Entero/Rhino (PCR) 03/27/22 03/27/22 03/27/22 03:00 03:04 05:07 WBC RBC Hgb Hct MCV MCH MCHC RDW Plt Count Neut % (Auto) Lymph % (Auto) [place] % (Auto) Eos % (Auto) Baso % (Auto) Neut # (Auto) Lymph # (Auto) [place] # (Auto) Eos # (Auto) Baso # (Auto) Total Counted Seg Neutrophils % Band Neutrophils % Lymphocytes % (Manual) Atypical Lymphs % Monocytes % (Manual) Neutrophils # (Manual) RBC Morphology PT INR APTT D-Dimer ABG pH 7.26 L* 7.27 L* ABG pCO2 42.9 40.6 ABG pO2 50 L 51 L ABG HCO3 19 L 19 L ABG Total CO2 20 L 20 L ABG O2 Saturation 79 L* 81 L* ABG Base Excess -8.0 L -8.0 L FiO2 100 100 Sodium Potassium Chloride Carbon Dioxide BUN Creatinine Estimated GFR BUN/Creatinine Ratio Glucose Lactate Calcium Magnesium Total Bilirubin AST ALT Alkaline Phosphatase Total Creatine Kinase CK-MB (CK-2) CK-MB (CK-2) Rel Index Troponin I NT-Pro-B Natriuret Pep Total Protein Albumin Globulin Albumin/Globulin Ratio Triglycerides Cholesterol LDL Cholesterol, Calc HDL Cholesterol Lipase Procalcitonin TSH Serum , Qual Urine Color Urine Appearance Urine pH Ur Specific [place] Urine Protein Urine Glucose (UA) Urine Ketones Urine Occult Blood Urine Nitrate Urine Bilirubin Ur Bilirubin Confirm Urine Urobilinogen Ur Leukocyte Esterase Urine RBC Urine WBC Amorphous Sediment Urine Bacteria Hyaline Casts Ur Culture Indicated? Nasal Screen MRSA (PCR) Negative for mrsa U Opiates 300ng/mL cut Ur Oxycodone Screen Urine Methadone Screen Ur Barbiturates Screen U Tricyclic Antidepress Ur Phencyclidine Scrn Ur Amphetamines Screen U Methamphetamines Scrn Ur MDMA Scrn (Ecstasy) U Benzodiazepines Scrn Urine Cocaine Screen U Marijuana (THC) Screen Chlamy pneumoniae PCR Adenovirus (PCR) B. pertussis DNA (PCR) B.parapertussis DNA PCR Coronavirus OC43 (PCR) Coronavirus HKU1 (PCR) Coronavirus 229E (PCR) SARS-CoV-2 (PCR) Coronavirus NL63 (PCR) Human Metapneumovir PCR Influenza Type A (PCR) Influenza Type B (PCR) M. pneumoniae (PCR) Parainfluenza 1 (PCR) Parainfluenza 2 (PCR) Parainfluenza 3 (PCR) Parainfluenza 4 (PCR) RSV (PCR) Entero/Rhino (PCR) 03/27/22 03/27/22 03/27/22 05:12 05:12 05:12 WBC 0.5 L* D RBC 3.60 L Hgb 10.9 L Hct 31.6 L MCV 87.8 MCH 30.2 MCHC 34.4 RDW 40.7 H Plt Count 169 Neut % (Auto) 75.2 H Lymph % (Auto) 22.1 L [place] % (Auto) 1.8 L Eos % (Auto) 0.6 L Baso % (Auto) 0.3 Neut # (Auto) 0 L Lymph # (Auto) 0 L [place] # (Auto) 0 Eos # (Auto) 0 Baso # (Auto) 0 Total Counted Seg Neutrophils % Band Neutrophils % Lymphocytes % (Manual) Atypical Lymphs % Monocytes % (Manual) Neutrophils # (Manual) RBC Morphology Normal morphology PT INR APTT D-Dimer ABG pH ABG pCO2 ABG pO2 ABG HCO3 ABG Total CO2 ABG O2 Saturation ABG Base Excess FiO2 Sodium Potassium Chloride Carbon Dioxide BUN Creatinine Estimated GFR BUN/Creatinine Ratio Glucose Lactate Calcium Magnesium 1.4 L Total Bilirubin AST ALT Alkaline Phosphatase Total Creatine Kinase CK-MB (CK-2) CK-MB (CK-2) Rel Index Troponin I NT-Pro-B Natriuret Pep 59632 H Total Protein Albumin Globulin Albumin/Globulin Ratio Triglycerides 329 H Cholesterol 114 L LDL Cholesterol, Calc 30 HDL Cholesterol 18 L Lipase Procalcitonin 39.2 H TSH 5.43 H Serum , Qual Urine Color Urine Appearance Urine pH Ur Specific [place] Urine Protein Urine Glucose (UA) Urine Ketones Urine Occult Blood Urine Nitrate Urine Bilirubin Ur Bilirubin Confirm Urine Urobilinogen Ur Leukocyte Esterase Urine RBC Urine WBC Amorphous Sediment Urine Bacteria Hyaline Casts Ur Culture Indicated? Nasal Screen MRSA (PCR) U Opiates 300ng/mL cut Ur Oxycodone Screen Urine Methadone Screen Ur Barbiturates Screen U Tricyclic Antidepress Ur Phencyclidine Scrn Ur Amphetamines Screen U Methamphetamines Scrn Ur MDMA Scrn (Ecstasy) U Benzodiazepines Scrn Urine Cocaine Screen U Marijuana (THC) Screen Chlamy pneumoniae PCR Adenovirus (PCR) B. pertussis DNA (PCR) B.parapertussis DNA PCR Coronavirus OC43 (PCR) Coronavirus HKU1 (PCR) Coronavirus 229E (PCR) SARS-CoV-2 (PCR) Coronavirus NL63 (PCR) Human Metapneumovir PCR Influenza Type A (PCR) Influenza Type B (PCR) M. pneumoniae (PCR) Parainfluenza 1 (PCR) Parainfluenza 2 (PCR) Parainfluenza 3 (PCR) Parainfluenza 4 (PCR) RSV (PCR) Entero/Rhino (PCR) 03/27/22 03/27/22 03/27/22 05:12 05:12 08:45 WBC RBC Hgb Hct MCV MCH MCHC RDW Plt Count Neut % (Auto) Lymph % (Auto) [place] % (Auto) Eos % (Auto) Baso % (Auto) Neut # (Auto) Lymph # (Auto) [place] # (Auto) Eos # (Auto) Baso # (Auto) Total Counted Seg Neutrophils % Band Neutrophils % Lymphocytes % (Manual) Atypical Lymphs % Monocytes % (Manual) Neutrophils # (Manual) RBC Morphology PT INR APTT D-Dimer ABG pH ABG pCO2 ABG pO2 ABG HCO3 ABG Total CO2 ABG O2 Saturation ABG Base Excess FiO2 Sodium 131 L Potassium 3.5 Chloride 99 Carbon Dioxide 18 L BUN 57 H Creatinine 2.49 H Estimated GFR 24 L BUN/Creatinine Ratio 22.9 H Glucose 117 H Lactate 1.5 Calcium 6.0 L* Magnesium Total Bilirubin 0.2 AST 41 H ALT 26 Alkaline Phosphatase 47 Total Creatine Kinase 87 CK-MB (CK-2) TNP CK-MB (CK-2) Rel Index TNP Troponin I 0.057 H NT-Pro-B Natriuret Pep Total Protein 4.5 L Albumin 2.5 L Globulin 2.0 Albumin/Globulin Ratio 1.3 Triglycerides Cholesterol LDL Cholesterol, Calc HDL Cholesterol Lipase Procalcitonin TSH Serum , Qual Urine Color Urine Appearance Urine pH Ur Specific [place] Urine Protein Urine Glucose (UA) Urine Ketones Urine Occult Blood Urine Nitrate Urine Bilirubin Ur Bilirubin Confirm Urine Urobilinogen Ur Leukocyte Esterase Urine RBC Urine WBC Amorphous Sediment Urine Bacteria Hyaline Casts Ur Culture Indicated? Nasal Screen MRSA (PCR) U Opiates 300ng/mL cut Ur Oxycodone Screen Urine Methadone Screen Ur Barbiturates Screen U Tricyclic Antidepress Ur Phencyclidine Scrn Ur Amphetamines Screen U Methamphetamines Scrn Ur MDMA Scrn (Ecstasy) U Benzodiazepines Scrn Urine Cocaine Screen U Marijuana (THC) Screen Chlamy pneumoniae PCR Adenovirus (PCR) B. pertussis DNA (PCR) B.parapertussis DNA PCR Coronavirus OC43 (PCR) Coronavirus HKU1 (PCR) Coronavirus 229E (PCR) SARS-CoV-2 (PCR) Coronavirus NL63 (PCR) Human Metapneumovir PCR Influenza Type A (PCR) Influenza Type B (PCR) M. pneumoniae (PCR) Parainfluenza 1 (PCR) Parainfluenza 2 (PCR) Parainfluenza 3 (PCR) Parainfluenza 4 (PCR) RSV (PCR) Entero/Rhino (PCR) 03/27/22 03/27/22 03/27/22 08:45 08:45 08:45 WBC RBC Hgb Hct MCV MCH MCHC RDW Plt Count Neut % (Auto) Lymph % (Auto) [place] % (Auto) Eos % (Auto) Baso % (Auto) Neut # (Auto) Lymph # (Auto) [place] # (Auto) Eos # (Auto) Baso # (Auto) Total Counted Seg Neutrophils % Band Neutrophils % Lymphocytes % (Manual) Atypical Lymphs % Monocytes % (Manual) Neutrophils # (Manual) RBC Morphology PT INR APTT D-Dimer 4141 H ABG pH ABG pCO2 ABG pO2 ABG HCO3 ABG Total CO2 ABG O2 Saturation ABG Base Excess FiO2 Sodium Potassium Chloride Carbon Dioxide BUN Creatinine Estimated GFR BUN/Creatinine Ratio Glucose Lactate Calcium Magnesium Total Bilirubin AST ALT Alkaline Phosphatase Total Creatine Kinase 93 CK-MB (CK-2) TNP CK-MB (CK-2) Rel Index TNP Troponin I 0.096 H 0.095 H NT-Pro-B Natriuret Pep Total Protein Albumin Globulin Albumin/Globulin Ratio Triglycerides Cholesterol LDL Cholesterol, Calc HDL Cholesterol Lipase Procalcitonin TSH Serum , Qual Urine Color Urine Appearance Urine pH Ur Specific [place] Urine Protein Urine Glucose (UA) Urine Ketones Urine Occult Blood Urine Nitrate Urine Bilirubin Ur Bilirubin Confirm Urine Urobilinogen Ur Leukocyte Esterase Urine RBC Urine WBC Amorphous Sediment Urine Bacteria Hyaline Casts Ur Culture Indicated? Nasal Screen MRSA (PCR) U Opiates 300ng/mL cut Ur Oxycodone Screen Urine Methadone Screen Ur Barbiturates Screen U Tricyclic Antidepress Ur Phencyclidine Scrn Ur Amphetamines Screen U Methamphetamines Scrn Ur MDMA Scrn (Ecstasy) U Benzodiazepines Scrn Urine Cocaine Screen U Marijuana (THC) Screen Chlamy pneumoniae PCR Adenovirus (PCR) B. pertussis DNA (PCR) B.parapertussis DNA PCR Coronavirus OC43 (PCR) Coronavirus HKU1 (PCR) Coronavirus 229E (PCR) SARS-CoV-2 (PCR) Coronavirus NL63 (PCR) Human Metapneumovir PCR Influenza Type A (PCR) Influenza Type B (PCR) M. pneumoniae (PCR) Parainfluenza 1 (PCR) Parainfluenza 2 (PCR) Parainfluenza 3 (PCR) Parainfluenza 4 (PCR) RSV (PCR) Entero/Rhino (PCR) 03/27/22 03/27/22 08:56 10:54 WBC RBC Hgb Hct MCV MCH MCHC RDW Plt Count Neut % (Auto) Lymph % (Auto) [place] % (Auto) Eos % (Auto) Baso % (Auto) Neut # (Auto) Lymph # (Auto) [place] # (Auto) Eos # (Auto) Baso # (Auto) Total Counted Seg Neutrophils % Band Neutrophils % Lymphocytes % (Manual) Atypical Lymphs % Monocytes % (Manual) Neutrophils # (Manual) RBC Morphology PT INR APTT D-Dimer ABG pH 7.20 L* 7.22 L* ABG pCO2 40.0 39.4 ABG pO2 53 L 110 H ABG HCO3 16 L 16 L ABG Total CO2 17 L 17 L ABG O2 Saturation 79 L* 97 ABG Base Excess -12.0 L -12.0 L FiO2 100 100 Sodium Potassium Chloride Carbon Dioxide BUN Creatinine Estimated GFR BUN/Creatinine Ratio Glucose Lactate Calcium Magnesium Total Bilirubin AST ALT Alkaline Phosphatase Total Creatine Kinase CK-MB (CK-2) CK-MB (CK-2) Rel Index Troponin I NT-Pro-B Natriuret Pep Total Protein Albumin Globulin Albumin/Globulin Ratio Triglycerides Cholesterol LDL Cholesterol, Calc HDL Cholesterol Lipase Procalcitonin TSH Serum , Qual Urine Color Urine Appearance Urine pH Ur Specific [place] Urine Protein Urine Glucose (UA) Urine Ketones Urine Occult Blood Urine Nitrate Urine Bilirubin Ur Bilirubin Confirm Urine Urobilinogen Ur Leukocyte Esterase Urine RBC Urine WBC Amorphous Sediment Urine Bacteria Hyaline Casts Ur Culture Indicated? Nasal Screen MRSA (PCR) U Opiates 300ng/mL cut Ur Oxycodone Screen Urine Methadone Screen Ur Barbiturates Screen U Tricyclic Antidepress Ur Phencyclidine Scrn Ur Amphetamines Screen U Methamphetamines Scrn Ur MDMA Scrn (Ecstasy) U Benzodiazepines Scrn Urine Cocaine Screen U Marijuana (THC) Screen Chlamy pneumoniae PCR Adenovirus (PCR) B. pertussis DNA (PCR) B.parapertussis DNA PCR Coronavirus OC43 (PCR) Coronavirus HKU1 (PCR) Coronavirus 229E (PCR) SARS-CoV-2 (PCR) Coronavirus NL63 (PCR) Human Metapneumovir PCR Influenza Type A (PCR) Influenza Type B (PCR) M. pneumoniae (PCR) Parainfluenza 1 (PCR) Parainfluenza 2 (PCR) Parainfluenza 3 (PCR) Parainfluenza 4 (PCR) RSV (PCR) Entero/Rhino (PCR) Assessment & Plan Assessment & Plan narrative: Stephan Yepez is a 41-year-old female without past medical history or medications presented to ED with cough fever and shortness of breath sick x4 day with body aches fevers and chills and decreased output as well. Presented in obvious respiratory distress and hypoxic to the ED, respiratory distress escalated quite quickly leading to intubation. Per Dr. Tavarez ED:Patient presents in obvious respiratory distress.? X-ray shows bilateral significant pneumonia.? His respiratory panel a surprisingly neck.? She was initially put on nasal cannula for brief moment and then switched to high-flow nasal cannula.? She did not like how fell into tolerated.? His she was switched over to BiPAP which she had a little bit better.? However she is still quite tachypneic not tolerating BiPAP and needed intubation.? She was intubated in started on vasopressors as well for some hypotension.? She is given prophylactic antibiotics as well Rocephin azithromycin for community-acquired pneumonia is.? No to on 100% was 45 here in the ED. she is found have acute kidney injury with a creatinine of 3.15 as well.? Love catheters placed monitoring ice and nose.? She is given sepsis fluid boluses. Patient was admitted for sepsis with septic shock with acute respiratory failure with hypoxia, hypercapnia in respiratory & metabolic acidosis, intubated with leukocytopenia, BRAIN, and acute heart failure. 1. Sepsis with septic, hypotensive, cardio, renal, shock with acute respiratory failure with hypoxia hypercapnia, respiratory acidosis/metabolic acidosis, acute, secondary to pneumonia, acute,present on admission -in ED: Given Rocephin azithromycin, and sepsis fluid bolus. -bedside for >60 min critical care admit. Patient required 5-6 hours direct at the bedside patient care/managment for unstable sepsis with septic shock. -Consult Dr. Thomas tele marble installer : vasopressin was added, Versed was stopped fentanyl and propofol were continued & reassessed, repeat ABG's ordered. -hydrocortisone q.6 hours -admit: 99.2, 103/64, 106, 30, 92% on VENT patient failed nasal cannula, high-flow, BiPAP in ED -Intubated in ED (patient did require a significant amount of sedation to obtain intubation 19 Versed 50 fentanyl 10 etomidate, and 100 succs: Vent settings: 100%, TV 500, peep 8, Rate 22, patient came up from the ED on fentanyl, propofol, Versed, and Levophed. -request was placed with associate director of nursing to initiate transfer to a care facility with a higher level of care with pulmonology, Cardiology and Nephrology -not long after initial admit patient went into severe shock developed sustained febrile 103? to 104? unresponsive to medications exacerbated tachycardic, tachypneic RR 40-50, tachycardic HR 140-170, extremities were cool to touch severely diaphoretic, in the attempts to decrease sedation as it was pushing down her pressures/MAP (goal >65) patient would wake up attempt to friedman the vent exacerbating her tachypnea and tachycardia. Patient had received a total 2500 cc sepsis rehydration fluids in ED patient had a total of 250 cc out of tea-colored urine over a 12 hour. -ABG: ph 7.23, pco2 45.5, p02 48, Hc03 19, 02 sat 76% base excess-8, FiO2 100 wbc 1.6, SOFA:6, Curb -65:2, Lac 2, proc 58.3, respiratory panel negative -ordered MSRA, Legionella, CRP, ESR, Blood, Urine, Sputum cultures, repeat lactate and procalcitonin, serial ABG's, EKGS, CXR's and labs. -chest x-ray: right upper lobe suprahilar airspace opacities, peripheral left basilar opacities without pleural effusion or pneumothorax -Vaping patient risk factor. -suspect community-acquired pneumonia, MRSA, Legionella- vancomycin to cover MRSA for intubated patient, Rocephin for pneumococcal coverage, and azithromycin macrolide. -initial potassium 3.2 80 mEq supp -oral gastric tube placed to intermittent suction -dark green bile drainage -IV Protonix -Of note pt takes Kratom an [id number] supplement, an herbal with opiate and stimulant like properties contains alkaloids, with mu-opiate receptor agonism, there are increasing numbers of reportedly so overdoses. Kratom:Investigation of kratom?s efficacy and toxicity is limited to case reports/series In higher doses of 5 to 15 g, frequent and prolonged ingestion of kratom for pain or recreational use has been associated with respiratory depression. Per Up-to-Date 2. BRAIN, secondary to sepsis/septic shock/respiratory/metabolic acidosis,with Gap 16, acute, present on admission - na 132, cl 93, 57, K3.2, surgical elastic knitter hand frame 3.15, bs 125, ca 7.6, grf 18-Gap 16, CCL 35. -Discussed electrolyte correction, fluids, and gap with Dr. Thomas, we will replenish delete electrolytes and monitor closely. -patient requires transfer to facility with a higher level of care with endocrinology/nephrology as she is likely to require dialysis if she continues to deteriorate -avoid nephrotoxic medication -Love in place for accurate I and O -notify provider if< 50 cc/HR -urine culture pending -monitor electrolytes closely 3. Heart failure, acute, present on admission -BNP 9680 -holding diuresis at this time due to elevated creatinine, BUN, and low GFR -ordered echo -Ordered lipids TSH repeat BNP 4. Obese, mild, acute on chronic, present on admission -as evidence by BMI of 32.4 -dietary consult DEFERRED -Will order after acute illness regarding nutritional education and information for dietary, lifestyle, exercise, and weight changes. -the patient is at much higher risk for medical and surgical complications due to obesity as it relates to sepsis, septic shock, acute respiratory failure, pneumonia. The patient's obesity increases the difficulty and complexity of medical and/or surgical interventions, management and increases the chances of poor outcome such as morbidity and mortality as well as impaired oxygenation. Critical care admit bedside > 60 minutes Code status:Full Surrogate decision maker: Arun Man (Father) listed in chart COVID PCR:Negative DVT/VTE prophylaxis: Heparin and SCDs Disposition:? Patient admitted to ICU with tele marble installer consult, due to ventilator management as a result of sepsis with shock and acute respiratory failure. Expected length of stay greater than 2 midnights. I have utilized and attempted all available immediate resources to obtain, update, or review the patient's current medications. I confirmed that the patient's advanced care plan is present, Code status is documented and/or surrogate decision maker is listed in the patient's medical record. Because patient is non communicative at the time of admit and we have no records in our system I am unable to compare or contrast any diagnostic or laboratory findings. Time Spent With Patient Critical Care time: I spent a total of [] minutes of critical care time on this patient's care today; this time is exclusive of procedural time.
[2022-03-27 14:57] LABS: Acinetobacter baumannii Not Detected (Not Detect); Candida albicans Not Detected (Not Detect); Candida glabrata Not Detected (Not Detect); Candida krusei Not Detected (Not Detect); Candida parapsilosis Not Detected (Not Detect); Candida tropicalis Not Detected (Not Detect); E. coli Not Detected (Not Detect); Enterobacter cloacae complex Not Detected (Not Detect); Enterobacteriaceae species Not Detected (Not Detect); Enterococcus species Not Detected (Not Detect); Haemophilus influenzae Not Detected (Not Detect); Listeria monocytogenes Not Detected (Not Detect); Neisseria meningitidis Not Detected (Not Detect); Proteus species Not Detected (Not Detect); Pseudomonas aeruginosa Not Detected (Not Detect); Serratia marcescens Not Detected (Not Detect); Staphylococcus species Not Detected (Not Detect); Streptococcus agalactiae (Gr B Not Detected (Not Detect); Streptococcus pneumonia Detected (Not Detect); Streptococcus pyogenes (Gr A) Not Detected (Not Detect); Streptococcus species Detected (Not Detect)
[2022-03-27 15:05] LABS: CKMB % Relative Index 1.9 % (1.5-5.0); Creatine Kinase MB 3.71 ng/mL (<2.37)
[2022-03-27] MEDS: fentaNYL 2,000 MCG in DEXTROSE 5% IN WATER 210 ML 51 MCG IV (15:13)
[2022-03-27 15:22] LABS: Troponin I 0.122 ng/mL (0.01-0.034)
[2022-03-27] MEDS: MIDAZOLAM IV (15:23)
[2022-03-27] MEDS: NOREPINEPHRINE 8 MG in DEXTROSE 5% IN WATER 250 ML 20 MG IV (15:57)
[2022-03-27 16:08] LABS: PCO2 ABG 46.9 mmHg (35-45); pH ABG 7.21 (7.35-7.45)
[2022-03-27 16:09] LABS: Fractionated Inspired Oxygen 80; HCO3 ABG 19 mmol/L (22-26); Oxygen Saturation ABG 76 % (95-100); PO2 ABG 50 mmHg (80-100); TCO2 ABG 20 mmol/L (21-31)
--- NOTE | 2022-03-27 16:15 | CM.DANOTE ---
DCP: Case received, EMR reviewed. Patient is intubated with staff at bedside. Retrieved information from EMR in order to complete DCP assessment. Patient is a 41 year old female who admitted early this morning to the care of the hospitalist team. PCP: Unknown. Payer: confirmed: [employer]. Patient came to the hospital via private vehicle secondary to having cough, fever, and shortness of breath. Patient was noted to be in respiratory distress and hypoxia. Notes indicate that patient vapes, and uses Kratom. Patient is noted to have bilateral significant pneumonia.Patient was initially put on nasal cannula, and then, switched to high flow. Patient then on BIPAP, not tolerating, and was intubated. She then noted hypotension, and was placed on vasopressors. Discussed patient during team rounds, due to decline in condition, kidney function, attempting to transfer patient to higher level of care hospital. Did not meet with patient, but is confirmed that she resides in [place]. She has her father listed as contact, and he resides here in [place]. It is unclear if she was here visiting. No information if patient is employed, or if she has primary care provider. P: DCP to continue to follow. Plan at this time is for patient to be transferred to higher level hospital, unless she improves. Lelo Green RN/Armature Inspector Discharge Planning/Care Management CM Discharge Assessment Start: 03/27/22 16:10 Freq: Status: Active Protocol: Document 03/27/22 16:10 (Rec: 03/27/22 16:15 [id number]) Discharge Planning Assessment Assigned Castings Drafter Lelo Green RN/Armature Inspector Advance Directives? No: pt. intubated and sedated History Provided By Medical Record Household Members none Type of transporation used prior to Drives own vehicle admit Independent with ADL's Yes Is patient alert and oriented? Yes Caregiver for Another No Barriers to Discharge Yes Comment Trying to get patient transferred to higher level hospital Discharge Plan Transfer to Higher Level of Care Transportation Arrangement ALS mode of transport Referrals Initiated Other Additional Comment sourcing coordinator is working on getting patient to higher level hospital Whiteboard Updated in Patient Room with No name and ext. # of Castings Drafter Comment Was not able to enter room, team of staff at bedside, patient is intubated. Review Status In Process Next Review Type Continued Stay Review
[2022-03-27 16:37] LABS: Hematocrit 30.6 % (36-46); Hemoglobin 10.4 g/dL (12.0-16.0); Mean Corpuscular HGB Conc 34.1 % (30-36); Mean Corpuscular Hemoglobin 30.1 PG (26-34); Mean Corpuscular Volume 88.3 fL (80-100); Platelet Count 171 X10^3/uL (150-400); Red Blood Cell Count 3.47 X10^6/uL (4.0-5.2); Red Cell Distribution Width 13.5 % (11.6-14.8); White Blood Cell Count 3.5 X10^3/uL (4.5-11.0)
[2022-03-27 16:38] LABS: Add Manual Diff / Slide Review YES
[2022-03-27 16:46] LABS: Lactate (Lactic Acid) 2.7 mmol/L (0.7-2.1)
[2022-03-27 16:47] LABS: BUN Creatinine Ratio 18.9 (6-22); Blood Urea Nitrogen 56 mg/dL (7-17); Carbon Dioxide 18 mmol/L (22-32); Chloride 94 mmol/L (98-107); Estimated Glomerular Filt Rate 20 mL/min (>60); Glucose 381 mg/dL (70-100); HEMOLYSIS < 15 (0-50); Magnesium 1.9 mg/dL (1.6-2.3); Phosphorous 6.1 mg/dL (2.5-4.5); Potassium 3.3 mmol/L (3.4-5.1); Sodium 131 mmol/L (137-145)
[2022-03-27 17:04] LABS: Calcium 5.5 mg/dL (8.4-10.2)
[2022-03-27 17:11] LABS: Creatine Kinase 198 U/L (30-135)
[2022-03-27 17:24] LABS: Troponin I 0.106 ng/mL (0.01-0.034)
[2022-03-27 17:26] LABS: CKMB % Relative Index 1.8 % (1.5-5.0); Creatine Kinase MB 3.55 ng/mL (<2.37)
[2022-03-27 17:47] LABS: Neutrophils Absolute Manual 2905 /uL (3000-5900); Nucleated Red Blood Cells 1 #/Diff; RBC Morphology Normal Morphology; Total Cells Counted 100
[2022-03-27] MEDS: cefTRIAXone 2,000 MG in SODIUM CHLORIDE 0.9% 100 ML 200 MG IV (17:52)
--- NOTE | 2022-03-27 17:54 | DI.RAD.S_ITS ---
PROCEDURE: XR CHEST 1V INDICATIONS: intubated,eval for ptx TECHNIQUE: One view of the chest was acquired. COMPARISON: [facility], CR, XR CHEST 1V, 03/27/2022, 10:08. [facility], CR, XR CHEST 1V, 03/27/2022, 3:04. FINDINGS: Surgical changes and devices: ET tube terminates at the thoracic inlet. Partially seen enteric tube. Central line is probably in the distal right atrium or right ventricle. Lungs and pleura: Similar limited aeration of the right and left lung secondary to suspected opacities and effusion, particularly opacifying the right upper and mid lung. No obvious pneumothorax component, although this may be hidden by the opacities. Mediastinum: Mediastinal contours appear normal. Heart size is normal. Bones and chest wall: No suspicious bony lesions. Overlying soft tissues appear unremarkable. IMPRESSION: Limited aeration of the right and left lungs, overall similar to prior. This is likely due to pulmonary opacities and effusion, particularly in the right upper lung. No obvious pneumothorax component, although a small amount of pleural air could be hidden by the opacity/effusion. Dictated by: Artur Duong M.D. on 03/27/2022 at 18:26 Approved by: Artur Duong M.D. on 03/27/2022 at 18:29
[2022-03-27 18:13] LABS: Reflexed Lactate in 2 Hours Y
--- NOTE | 2022-03-27 18:14 | P.PN_ITS ---
Subjective Subjective Date Patient Seen: 03/27/22 Interval history: Patient intubated and sedated. Currently attempting to wean 3 pressors. Difficult to get sedated as patient has high tolerance apparently. Blood cultures returned 4/4 bottles strep pneumoniae. Exam Vital Signs (past 8 hours): - 03/27/22 10:16 03/27/22 10:16 03/27/22 10:30 Temperature Pulse Rate 109 H Respiratory Rate 33 H Blood Pressure 113/56 L 106/55 L Pulse Oximetry 96 Oxygen Delivery Method Fraction of Inspired Oxygen 03/27/22 10:30 03/27/22 10:45 03/27/22 10:45 Temperature Pulse Rate 110 H 110 H Respiratory Rate 34 H 33 H Blood Pressure 115/53 L Pulse Oximetry 93 96 Oxygen Delivery Method Fraction of Inspired Oxygen 03/27/22 11:00 03/27/22 11:00 03/27/22 11:15 Temperature Pulse Rate 112 H 111 H Respiratory Rate 33 H 33 H Blood Pressure 123/67 Pulse Oximetry 98 97 Oxygen Delivery Method Fraction of Inspired Oxygen 03/27/22 11:15 03/27/22 11:30 03/27/22 11:30 Temperature Pulse Rate 109 H Respiratory Rate 33 H Blood Pressure 119/69 129/73 Pulse Oximetry 96 Oxygen Delivery Method Fraction of Inspired Oxygen 03/27/22 11:45 03/27/22 11:45 03/27/22 12:00 Temperature Pulse Rate 107 H Respiratory Rate 33 H Blood Pressure 131/77 134/81 Pulse Oximetry 96 Oxygen Delivery Method Fraction of Inspired Oxygen 03/27/22 12:00 03/27/22 12:15 03/27/22 12:15 Temperature Pulse Rate 108 H 108 H Respiratory Rate 33 H 33 H Blood Pressure 121/77 Pulse Oximetry 94 90 L Oxygen Delivery Method Fraction of Inspired Oxygen 03/27/22 12:30 03/27/22 12:30 03/27/22 12:45 Temperature Pulse Rate 108 H 107 H Respiratory Rate 33 H 33 H Blood Pressure 124/75 Pulse Oximetry 91 90 L Oxygen Delivery Method Fraction of Inspired Oxygen 03/27/22 12:45 03/27/22 13:00 03/27/22 13:00 Temperature Pulse Rate 107 H Respiratory Rate 31 H Blood Pressure 119/71 120/69 Pulse Oximetry 94 Oxygen Delivery Method Fraction of Inspired Oxygen 03/27/22 13:15 03/27/22 13:15 03/27/22 13:30 Temperature Pulse Rate 122 H Respiratory Rate 22 Blood Pressure 124/79 113/63 Pulse Oximetry 92 Oxygen Delivery Method Fraction of Inspired Oxygen 03/27/22 13:30 03/27/22 13:52 03/27/22 13:45 Temperature 99.7 F H Pulse Rate 116 H 116 H Respiratory Rate 16 33 H Blood Pressure 100/57 L 111/66 Pulse Oximetry 96 96 Oxygen Delivery Method Fraction of Inspired Oxygen 90 03/27/22 13:45 03/27/22 14:00 03/27/22 14:00 Temperature Pulse Rate 117 H 115 H Respiratory Rate 22 27 H Blood Pressure 115/66 Pulse Oximetry 95 96 Oxygen Delivery Method Fraction of Inspired Oxygen 03/27/22 14:15 03/27/22 14:15 03/27/22 14:30 Temperature Pulse Rate 114 H Respiratory Rate 35 H Blood Pressure 124/69 123/69 Pulse Oximetry 96 Oxygen Delivery Method Fraction of Inspired Oxygen 03/27/22 14:30 03/27/22 14:45 03/27/22 14:45 Temperature Pulse Rate 112 H 112 H Respiratory Rate 29 H 35 H Blood Pressure 120/66 Pulse Oximetry 95 95 Oxygen Delivery Method Fraction of Inspired Oxygen 03/27/22 15:00 03/27/22 15:00 03/27/22 15:15 Temperature Pulse Rate 111 H Respiratory Rate 29 H Blood Pressure 120/71 120/69 Pulse Oximetry 95 Oxygen Delivery Method Fraction of Inspired Oxygen 03/27/22 15:15 03/27/22 15:30 03/27/22 15:30 Temperature Pulse Rate 109 H 108 H Respiratory Rate 26 H 28 H Blood Pressure 123/68 Pulse Oximetry 94 90 L Oxygen Delivery Method Fraction of Inspired Oxygen 03/27/22 15:45 03/27/22 15:45 03/27/22 16:00 Temperature Pulse Rate 106 H Respiratory Rate 31 H Blood Pressure 110/62 111/69 Pulse Oximetry 89 L Oxygen Delivery Method Fraction of Inspired Oxygen 03/27/22 16:00 03/27/22 16:15 03/27/22 16:15 Temperature Pulse Rate 105 H 106 H Respiratory Rate 34 H 31 H Blood Pressure 103/63 Pulse Oximetry 89 L 90 L Oxygen Delivery Method Fraction of Inspired Oxygen 03/27/22 16:30 03/27/22 16:30 03/27/22 16:58 Temperature Pulse Rate 108 H Respiratory Rate 28 H Blood Pressure 107/60 Pulse Oximetry 90 L Oxygen Delivery Method Mechanical Ventilation Fraction of Inspired Oxygen 03/27/22 16:45 03/27/22 16:45 03/27/22 17:00 Temperature 99.7 F H Pulse Rate 108 H Respiratory Rate 28 H Blood Pressure 108/57 L 103/59 L Pulse Oximetry 94 Oxygen Delivery Method Fraction of Inspired Oxygen 03/27/22 17:00 Temperature Pulse Rate 108 H Respiratory Rate 27 H Blood Pressure Pulse Oximetry 94 Oxygen Delivery Method Fraction of Inspired Oxygen Fraction of Inspired Oxygen 90 Oxygen Delivery Method Mechanical Ventilation Narrative Exam Narrative: General:? Patient is a well-developed, well-nourished female, intubated and sedated but intermittently agitated HEENT:? Normocephalic, atraumatic, extraocular muscles intact, oral pharynx is clear and mucous membranes are moist.? Neck is supple and symmetric, trachea is midline, no adenopathy, no thyroid enlargement, nontender, no masses palpated.? Negative for JVD Chest:? Normal AP diameter and contour without kyphoscoliosis, no nasal flaring, retractions, or tachypneic labored Lungs:? Lung betancur are rhonchorous bilaterally, decreased RUL breath sounds Cardio:? S1 & S2 with regular rate and rhythm without murmur, rubs, or gallops, no carotid bruit, no cardiac pulsations present. Abdomen:? Soft nontender, negative for organomegaly, or masses.? Bowel sounds are present in all 4 quadrants without guarding or rebound, no CVA tenderness. Musculoskeletal:? Muscle strength and tone are equal within normal limits, no deformity, crepitus, effusions, cyanosis, clubbing or edema present.? Full range of motion intact radial and pedal pulses are normal. Skin:? Warm dry and intact without rashes, ulcerations or petechiae.? Neuro:? Alert and orientated x3, strength is +5/5 in all extremities, sensation to touch intact, no gross deficits noted of cranial nerves. Psych:? Patient has a well-kept appearance, appropriate affect, mental status attitude thought context and judgment appear slightly irregular, inappropriate. Objective Labs Result Diagrams: 03/27/22 15:52 03/27/22 15:52 Labs: Laboratory Results - last 24 hr 03/26/22 03/26/2203/26/22 22:10 22:11 22:11 WBC 1.6 L* RBC 4.21 Hgb 12.4 Hct 37.1 MCV 88.0 MCH 29.5 MCHC 33.5 RDW 13.0 Plt Count 201 Neut % (Auto) Not Reportable Lymph % (Auto) Not Reportable [place] % (Auto) Not Reportable Eos % (Auto) Not Reportable Baso % (Auto) Not Reportable Neut # (Auto) Lymph # (Auto) Not Reportable [place] # (Auto) Not Reportable Eos # (Auto) Baso # (Auto) Not Reportable Total Counted 100 Seg Neutrophils % 45.0 Band Neutrophils % 5.0 Lymphocytes % (Manual) 18.0 L Atypical Lymphs % 16.0 H Monocytes % (Manual) 16.0 H Metamyelocytes % Neutrophils # (Manual) 800 L Nucleated RBCs RBC Morphology Normal morphology PT 15.0 H INR 1.3 APTT 26 D-Dimer ABG pH ABG pCO2 ABG pO2 ABG HCO3 ABG Total CO2 ABG O2 Saturation ABG Base Excess FiO2 Sodium Potassium Chloride Carbon Dioxide BUN Creatinine Estimated GFR BUN/Creatinine Ratio Glucose Lactate Calcium Phosphorus Magnesium Total Bilirubin AST ALT Alkaline Phosphatase Total Creatine Kinase CK-MB (CK-2) CK-MB (CK-2) Rel Index Troponin I NT-Pro-B Natriuret Pep Total Protein Albumin Globulin Albumin/Globulin Ratio Triglycerides Cholesterol LDL Cholesterol, Calc HDL Cholesterol Lipase Procalcitonin TSH Serum , Qual Urine Color Urine Appearance Urine pH Ur Specific [place] Urine Protein Urine Glucose (UA) Urine Ketones Urine Occult Blood Urine Nitrate Urine Bilirubin Ur Bilirubin Confirm Urine Urobilinogen Ur Leukocyte Esterase Urine RBC Urine WBC Amorphous Sediment Urine Bacteria Hyaline Casts Ur Culture Indicated? Nasal Screen MRSA (PCR) U Opiates 300ng/mL cut Ur Oxycodone Screen Urine Methadone Screen Ur Barbiturates Screen U Tricyclic Antidepress Ur Phencyclidine Scrn Ur Amphetamines Screen U Methamphetamines Scrn Ur MDMA Scrn (Ecstasy) U Benzodiazepines Scrn Urine Cocaine Screen U Marijuana (THC) Screen A. baumannii (PCR) Chlamy pneumoniae PCR Not detected Adenovirus (PCR) Not detected B. pertussis DNA (PCR) Not detected B.parapertussis DNA PCR Not detected Magui albicans (PCR) C. glabrata (PCR) C. krusei (PCR) C. parapsilosis (PCR) C. tropicalis (PCR) Coronavirus OC43 (PCR) Not detected Coronavirus HKU1 (PCR) Not detected Coronavirus 229E (PCR) Not detected SARS-CoV-2 (PCR) Not detected Coronavirus NL63 (PCR) Not detected Enterobacteriac sp PCR E. cloacae complex PCR Enterococcus sp PCR E. coli (PCR) H. influenzae (PCR) Human Metapneumovir PCR Not detected Influenza Type A (PCR) Not detected Influenza Type B (PCR) Not detected Klebsiella oxytoca PCR Klebsiella pneumoniae List. monocytogenes PCR M. pneumoniae (PCR) Not detected N. meningitidis (PCR) Parainfluenza 1 (PCR) Not detected Parainfluenza 2 (PCR) Not detected Parainfluenza 3 (PCR) Not detected Parainfluenza 4 (PCR) Not detected Proteus species (PCR) RSV (PCR) Not detected Entero/Rhino (PCR) Not detected Serratia marcescens PCR Staphylococcus sp PCR Staph aureus (PCR) mecA-Methicil Res Gene Streptococcus sp PCR Group A Strep (PCR) Strep agalactiae (PCR) Strep pneumoniae (PCR) P. aeruginosa (PCR) Maricruz/B-Vanco Res Genes KPC-Carbap Res Gene PCR 03/26/22 03/26/22 03/26/22 22:11 22:11 22:11 WBC RBC Hgb Hct MCV MCH MCHC RDW Plt Count Neut % (Auto) Lymph % (Auto) [place] % (Auto) Eos % (Auto) Baso % (Auto) Neut # (Auto) Lymph # (Auto) [place] # (Auto) Eos # (Auto) Baso # (Auto) Total Counted Seg Neutrophils % Band Neutrophils % Lymphocytes % (Manual) Atypical Lymphs % Monocytes % (Manual) Metamyelocytes % Neutrophils # (Manual) Nucleated RBCs RBC Morphology PT INR APTT D-Dimer ABG pH ABG pCO2 ABG pO2 ABG HCO3 ABG Total CO2 ABG O2 Saturation ABG Base Excess FiO2 Sodium 132 L Potassium 3.2 L Chloride 93 L Carbon Dioxide 23 BUN 57 H Creatinine 3.15 H Estimated GFR 18 L BUN/Creatinine Ratio 18.1 Glucose 125 H Lactate 2.8 H Calcium 7.6 L Phosphorus Magnesium Total Bilirubin 0.5 AST 32 ALT 24 Alkaline Phosphatase 63 Total Creatine Kinase CK-MB (CK-2) CK-MB (CK-2) Rel Index Troponin I NT-Pro-B Natriuret Pep 9680 H Total Protein 7.1 Albumin 3.7 Globulin 3.4 Albumin/Globulin Ratio 1.1 Triglycerides Cholesterol LDL Cholesterol, Calc HDL Cholesterol Lipase 17 L Procalcitonin 58.3 H TSH Serum , Qual Urine Color Urine Appearance Urine pH Ur Specific [place] Urine Protein Urine Glucose (UA) Urine Ketones Urine Occult Blood Urine Nitrate Urine Bilirubin Ur Bilirubin Confirm Urine Urobilinogen Ur Leukocyte Esterase Urine RBC Urine WBC Amorphous Sediment Urine Bacteria Hyaline Casts Ur Culture Indicated? Nasal Screen MRSA (PCR) U Opiates 300ng/mL cut Ur Oxycodone Screen Urine Methadone Screen Ur Barbiturates Screen U Tricyclic Antidepress Ur Phencyclidine Scrn Ur Amphetamines Screen U Methamphetamines Scrn Ur MDMA Scrn (Ecstasy) U Benzodiazepines Scrn Urine Cocaine Screen U Marijuana (THC) Screen A. baumannii (PCR) Chlamy pneumoniae PCR Adenovirus (PCR) B. pertussis DNA (PCR) B.parapertussis DNA PCR Magui albicans (PCR) C. glabrata (PCR) C. krusei (PCR) C. parapsilosis (PCR) C. tropicalis (PCR) Coronavirus OC43 (PCR) Coronavirus HKU1 (PCR) Coronavirus 229E (PCR) SARS-CoV-2 (PCR) Coronavirus NL63 (PCR) Enterobacteriac sp PCR E. cloacae complex PCR Enterococcus sp PCR E. coli (PCR) H. influenzae (PCR) Human Metapneumovir PCR Influenza Type A (PCR) Influenza Type B (PCR) Klebsiella oxytoca PCR Klebsiella pneumoniae List. monocytogenes PCR M. pneumoniae (PCR) N. meningitidis (PCR) Parainfluenza 1 (PCR) Parainfluenza 2 (PCR) Parainfluenza 3 (PCR) Parainfluenza 4 (PCR) Proteus species (PCR) RSV (PCR) Entero/Rhino (PCR) Serratia marcescens PCR Staphylococcus sp PCR Staph aureus (PCR) mecA-Methicil Res Gene Streptococcus sp PCR Group A Strep (PCR) Strep agalactiae (PCR) Strep pneumoniae (PCR) P. aeruginosa (PCR) Maricruz/B-Vanco Res Genes KPC-Carbap Res Gene PCR 03/26/22 03/26/22 03/26/22 22:11 22:11 22:11 WBC RBC Hgb Hct MCV MCH MCHC RDW Plt Count Neut % (Auto) Lymph % (Auto) [place] % (Auto) Eos % (Auto) Baso % (Auto) Neut # (Auto) Lymph # (Auto) [place] # (Auto) Eos # (Auto) Baso # (Auto) Total Counted Seg Neutrophils % Band Neutrophils % Lymphocytes % (Manual) Atypical Lymphs % Monocytes % (Manual) Metamyelocytes % Neutrophils # (Manual) Nucleated RBCs RBC Morphology PT INR APTT D-Dimer ABG pH ABG pCO2 ABG pO2 ABG HCO3 ABG Total CO2 ABG O2 Saturation ABG Base Excess FiO2 Sodium Potassium Chloride Carbon Dioxide BUN Creatinine Estimated GFR BUN/Creatinine Ratio Glucose Lactate Calcium Phosphorus Magnesium Total Bilirubin AST ALT Alkaline Phosphatase Total Creatine Kinase CK-MB (CK-2) CK-MB (CK-2) Rel Index Troponin I < 0.012 NT-Pro-B Natriuret Pep Total Protein Albumin Globulin Albumin/Globulin Ratio Triglycerides Cholesterol LDL Cholesterol, Calc HDL Cholesterol Lipase Procalcitonin TSH Serum , Qual Negative Urine Color Urine Appearance Urine pH Ur Specific [place] Urine Protein Urine Glucose (UA) Urine Ketones Urine Occult Blood Urine Nitrate Urine Bilirubin Ur Bilirubin Confirm Urine Urobilinogen Ur Leukocyte Esterase Urine RBC Urine WBC Amorphous Sediment Urine Bacteria Hyaline Casts Ur Culture Indicated? Nasal Screen MRSA (PCR) U Opiates 300ng/mL cut Ur Oxycodone Screen Urine Methadone Screen Ur Barbiturates Screen U Tricyclic Antidepress Ur Phencyclidine Scrn Ur Amphetamines Screen U Methamphetamines Scrn Ur MDMA Scrn (Ecstasy) U Benzodiazepines Scrn Urine Cocaine Screen U Marijuana (THC) Screen A. baumannii (PCR) Not detected Chlamy pneumoniae PCR Adenovirus (PCR) B. pertussis DNA (PCR) B.parapertussis DNA PCR Magui albicans (PCR) Not detected C. glabrata (PCR) Not detected C. krusei (PCR) Not detected C. parapsilosis (PCR) Not detected C. tropicalis (PCR) Not detected Coronavirus OC43 (PCR) Coronavirus HKU1 (PCR) Coronavirus 229E (PCR) SARS-CoV-2 (PCR) Coronavirus NL63 (PCR) Enterobacteriac sp PCR Not detected E. cloacae complex PCR Not detected Enterococcus sp PCR Not detected E. coli (PCR) Not detected H. influenzae (PCR) Not detected Human Metapneumovir PCR Influenza Type A (PCR) Influenza Type B (PCR) Klebsiella oxytoca PCR Not detected Klebsiella pneumoniae Not detected List. monocytogenes PCR Not detected M. pneumoniae (PCR) N. meningitidis (PCR) Not detected Parainfluenza 1 (PCR) Parainfluenza 2 (PCR) Parainfluenza 3 (PCR) Parainfluenza 4 (PCR) Proteus species (PCR) Not detected RSV (PCR) Entero/Rhino (PCR) Serratia marcescens PCR Not detected Staphylococcus sp PCR Not detected Staph aureus (PCR) Not detected mecA-Methicil Res Gene Not Reportable Streptococcus sp PCR Detected H Group A Strep (PCR) Not detected Strep agalactiae (PCR) Not detected Strep pneumoniae (PCR) Detected H P. aeruginosa (PCR) Not detected Maricruz/B-Vanco Res Genes Not Reportable KPC-Carbap Res Gene PCR Not Reportable 03/27/22 03/27/22 03/27/22 00:22 00:22 00:39 WBC RBC Hgb Hct MCV MCH MCHC RDW Plt Count Neut % (Auto) Lymph % (Auto) [place] % (Auto) Eos % (Auto) Baso % (Auto) Neut # (Auto) Lymph # (Auto) [place] # (Auto) Eos # (Auto) Baso # (Auto) Total Counted Seg Neutrophils % Band Neutrophils % Lymphocytes % (Manual) Atypical Lymphs % Monocytes % (Manual) Metamyelocytes % Neutrophils # (Manual) Nucleated RBCs RBC Morphology PT INR APTT D-Dimer ABG pH ABG pCO2 ABG pO2 ABG HCO3 ABG Total CO2 ABG O2 Saturation ABG Base Excess FiO2 Sodium Potassium Chloride Carbon Dioxide BUN Creatinine Estimated GFR BUN/Creatinine Ratio Glucose Lactate 2.0 Calcium Phosphorus Magnesium Total Bilirubin AST ALT Alkaline Phosphatase Total Creatine Kinase CK-MB (CK-2) CK-MB (CK-2) Rel Index Troponin I NT-Pro-B Natriuret Pep Total Protein Albumin Globulin Albumin/Globulin Ratio Triglycerides Cholesterol LDL Cholesterol, Calc HDL Cholesterol Lipase Procalcitonin TSH Serum , Qual Urine Color Yellow Urine Appearance Cloudy Urine pH 5.0 Ur Specific [place] 1.025 Urine Protein 2+ H Urine Glucose (UA) Negative Urine Ketones Trace H Urine Occult Blood Negative Urine Nitrate Negative Urine Bilirubin 1+ H Ur Bilirubin Confirm Negative Urine Urobilinogen 0.2 Ur Leukocyte Esterase Trace H Urine RBC None seen Urine WBC 1-5/hpf Amorphous Sediment 4+ Urine Bacteria None seen Hyaline Casts 0-1/lpf Ur Culture Indicated? Specimen cultured Nasal Screen MRSA (PCR) U Opiates 300ng/mL cut Negative Ur Oxycodone Screen Negative Urine Methadone Screen Negative Ur Barbiturates Screen Negative U Tricyclic Antidepress Negative Ur Phencyclidine Scrn Negative Ur Amphetamines Screen Negative U Methamphetamines Scrn Negative Ur MDMA Scrn (Ecstasy) Negative U Benzodiazepines Scrn Negative Urine Cocaine Screen Negative U Marijuana (THC) Screen Negative A. baumannii (PCR) Chlamy pneumoniae PCR Adenovirus (PCR) B. pertussis DNA (PCR) B.parapertussis DNA PCR Magui albicans (PCR) C. glabrata (PCR) C. krusei (PCR) C. parapsilosis (PCR) C. tropicalis (PCR) Coronavirus OC43 (PCR) Coronavirus HKU1 (PCR) Coronavirus 229E (PCR) SARS-CoV-2 (PCR) Coronavirus NL63 (PCR) Enterobacteriac sp PCR E. cloacae complex PCR Enterococcus sp PCR E. coli (PCR) H. influenzae (PCR) Human Metapneumovir PCR Influenza Type A (PCR) Influenza Type B (PCR) Klebsiella oxytoca PCR Klebsiella pneumoniae List. monocytogenes PCR M. pneumoniae (PCR) N. meningitidis (PCR) Parainfluenza 1 (PCR) Parainfluenza 2 (PCR) Parainfluenza 3 (PCR) Parainfluenza 4 (PCR) Proteus species (PCR) RSV (PCR) Entero/Rhino (PCR) Serratia marcescens PCR Staphylococcus sp PCR Staph aureus (PCR) mecA-Methicil Res Gene Streptococcus sp PCR Group A Strep (PCR) Strep agalactiae (PCR) Strep pneumoniae (PCR) P. aeruginosa (PCR) Maricruz/B-Vanco Res Genes KPC-Carbap Res Gene PCR 03/27/22 03/27/22 03/27/22 00:41 03:00 03:04 WBC RBC Hgb Hct MCV MCH MCHC RDW Plt Count Neut % (Auto) Lymph % (Auto) [place] % (Auto) Eos % (Auto) Baso % (Auto) Neut # (Auto) Lymph # (Auto) [place] # (Auto) Eos # (Auto) Baso # (Auto) Total Counted Seg Neutrophils % Band Neutrophils % Lymphocytes % (Manual) Atypical Lymphs % Monocytes % (Manual) Metamyelocytes % Neutrophils # (Manual) Nucleated RBCs RBC Morphology PT INR APTT D-Dimer ABG pH 7.23 L* 7.26 L* ABG pCO2 45.5 H 42.9 ABG pO2 48 L* 50 L ABG HCO3 19 L 19 L ABG Total CO2 21 20 L ABG O2 Saturation 76 L* 79 L* ABG Base Excess -8.0 L -8.0 L FiO2 100 100 Sodium Potassium Chloride Carbon Dioxide BUN Creatinine Estimated GFR BUN/Creatinine Ratio Glucose Lactate Calcium Phosphorus Magnesium Total Bilirubin AST ALT Alkaline Phosphatase Total Creatine Kinase CK-MB (CK-2) CK-MB (CK-2) Rel Index Troponin I NT-Pro-B Natriuret Pep Total Protein Albumin Globulin Albumin/Globulin Ratio Triglycerides Cholesterol LDL Cholesterol, Calc HDL Cholesterol Lipase Procalcitonin TSH Serum , Qual Urine Color Urine Appearance Urine pH Ur Specific [place] Urine Protein Urine Glucose (UA) Urine Ketones Urine Occult Blood Urine Nitrate Urine Bilirubin Ur Bilirubin Confirm Urine Urobilinogen Ur Leukocyte Esterase Urine RBC Urine WBC Amorphous Sediment Urine Bacteria Hyaline Casts Ur Culture Indicated? Nasal Screen MRSA (PCR) Negative for mrsa U Opiates 300ng/mL cut Ur Oxycodone Screen Urine Methadone Screen Ur Barbiturates Screen U Tricyclic Antidepress Ur Phencyclidine Scrn Ur Amphetamines Screen U Methamphetamines Scrn Ur MDMA Scrn (Ecstasy) U Benzodiazepines Scrn Urine Cocaine Screen U Marijuana (THC) Screen A. baumannii (PCR) Chlamy pneumoniae PCR Adenovirus (PCR) B. pertussis DNA (PCR) B.parapertussis DNA PCR Magui albicans (PCR) C. glabrata (PCR) C. krusei (PCR) C. parapsilosis (PCR) C. tropicalis (PCR) Coronavirus OC43 (PCR) Coronavirus HKU1 (PCR) Coronavirus 229E (PCR) SARS-CoV-2 (PCR) Coronavirus NL63 (PCR) Enterobacteriac sp PCR E. cloacae complex PCR Enterococcus sp PCR E. coli (PCR) H. influenzae (PCR) Human Metapneumovir PCR Influenza Type A (PCR) Influenza Type B (PCR) Klebsiella oxytoca PCR Klebsiella pneumoniae List. monocytogenes PCR M. pneumoniae (PCR) N. meningitidis (PCR) Parainfluenza 1 (PCR) Parainfluenza 2 (PCR) Parainfluenza 3 (PCR) Parainfluenza 4 (PCR) Proteus species (PCR) RSV (PCR) Entero/Rhino (PCR) Serratia marcescens PCR Staphylococcus sp PCR Staph aureus (PCR) mecA-Methicil Res Gene Streptococcus sp PCR Group A Strep (PCR) Strep agalactiae (PCR) Strep pneumoniae (PCR) P. aeruginosa (PCR) Maricruz/B-Vanco Res Genes KPC-Carbap Res Gene PCR 03/27/22 03/27/22 03/27/22 05:07 05:12 05:12 WBC 0.5 L* D RBC 3.60 L Hgb 10.9 L Hct 31.6 L MCV 87.8 MCH 30.2 MCHC 34.4 RDW 40.7 H Plt Count 169 Neut % (Auto) 75.2 H Lymph % (Auto) 22.1 L [place] % (Auto) 1.8 L Eos % (Auto) 0.6 L Baso % (Auto) 0.3 Neut # (Auto) 0 L Lymph # (Auto) 0 L [place] # (Auto) 0 Eos # (Auto) 0 Baso # (Auto) 0 Total Counted Seg Neutrophils % Band Neutrophils % Lymphocytes % (Manual) Atypical Lymphs % Monocytes % (Manual) Metamyelocytes % Neutrophils # (Manual) Nucleated RBCs RBC Morphology Normal morphology PT INR APTT D-Dimer ABG pH 7.27 L* ABG pCO2 40.6 ABG pO2 51 L ABG HCO3 19 L ABG Total CO2 20 L ABG O2 Saturation 81 L* ABG Base Excess -8.0 L FiO2 100 Sodium Potassium Chloride Carbon Dioxide BUN Creatinine Estimated GFR BUN/Creatinine Ratio Glucose Lactate Calcium Phosphorus Magnesium 1.4 L Total Bilirubin AST ALT Alkaline Phosphatase Total Creatine Kinase CK-MB (CK-2) CK-MB (CK-2) Rel Index Troponin I NT-Pro-B Natriuret Pep 64695 H Total Protein Albumin Globulin Albumin/Globulin Ratio Triglycerides 329 H Cholesterol 114 L LDL Cholesterol, Calc 30 HDL Cholesterol 18 L Lipase Procalcitonin 39.2 H TSH Serum , Qual Urine Color Urine Appearance Urine pH Ur Specific [place] Urine Protein Urine Glucose (UA) Urine Ketones Urine Occult Blood Urine Nitrate Urine Bilirubin Ur Bilirubin Confirm Urine Urobilinogen Ur Leukocyte Esterase Urine RBC Urine WBC Amorphous Sediment Urine Bacteria Hyaline Casts Ur Culture Indicated? Nasal Screen MRSA (PCR) U Opiates 300ng/mL cut Ur Oxycodone Screen Urine Methadone Screen Ur Barbiturates Screen U Tricyclic Antidepress Ur Phencyclidine Scrn Ur Amphetamines Screen U Methamphetamines Scrn Ur MDMA Scrn (Ecstasy) U Benzodiazepines Scrn Urine Cocaine Screen U Marijuana (THC) Screen A. baumannii (PCR) Chlamy pneumoniae PCR Adenovirus (PCR) B. pertussis DNA (PCR) B.parapertussis DNA PCR Magui albicans (PCR) C. glabrata (PCR) C. krusei (PCR) C. parapsilosis (PCR) C. tropicalis (PCR) Coronavirus OC43 (PCR) Coronavirus HKU1 (PCR) Coronavirus 229E (PCR) SARS-CoV-2 (PCR) Coronavirus NL63 (PCR) Enterobacteriac sp PCR E. cloacae complex PCR Enterococcus sp PCR E. coli (PCR) H. influenzae (PCR) Human Metapneumovir PCR Influenza Type A (PCR) Influenza Type B (PCR) Klebsiella oxytoca PCR Klebsiella pneumoniae List. monocytogenes PCR M. pneumoniae (PCR) N. meningitidis (PCR) Parainfluenza 1 (PCR) Parainfluenza 2 (PCR) Parainfluenza 3 (PCR) Parainfluenza 4 (PCR) Proteus species (PCR) RSV (PCR) Entero/Rhino (PCR) Serratia marcescens PCR Staphylococcus sp PCR Staph aureus (PCR) mecA-Methicil Res Gene Streptococcus sp PCR Group A Strep (PCR) Strep agalactiae (PCR) Strep pneumoniae (PCR) P. aeruginosa (PCR) Maricruz/B-Vanco Res Genes KPC-Carbap Res Gene PCR 03/27/22 03/27/22 03/27/22 05:12 05:12 05:12 WBC RBC Hgb Hct MCV MCH MCHC RDW Plt Count Neut % (Auto) Lymph % (Auto) [place] % (Auto) Eos % (Auto) Baso % (Auto) Neut # (Auto) Lymph # (Auto) [place] # (Auto) Eos # (Auto) Baso # (Auto) Total Counted Seg Neutrophils % Band Neutrophils % Lymphocytes % (Manual) Atypical Lymphs % Monocytes % (Manual) Metamyelocytes % Neutrophils # (Manual) Nucleated RBCs RBC Morphology PT INR APTT D-Dimer ABG pH ABG pCO2 ABG pO2 ABG HCO3 ABG Total CO2 ABG O2 Saturation ABG Base Excess FiO2 Sodium 131 L Potassium 3.5 Chloride 99 Carbon Dioxide 18 L BUN 57 H Creatinine 2.49 H Estimated GFR 24 L BUN/Creatinine Ratio 22.9 H Glucose 117 H Lactate Calcium 6.0 L* Phosphorus Magnesium Total Bilirubin 0.2 AST 41 H ALT 26 Alkaline Phosphatase 47 Total Creatine Kinase 87 CK-MB (CK-2) TNP CK-MB (CK-2) Rel Index TNP Troponin I 0.057 H NT-Pro-B Natriuret Pep Total Protein 4.5 L Albumin 2.5 L Globulin 2.0 Albumin/Globulin Ratio 1.3 Triglycerides Cholesterol LDL Cholesterol, Calc HDL Cholesterol Lipase Procalcitonin TSH 5.43 H Serum , Qual Urine Color Urine Appearance Urine pH Ur Specific [place] Urine Protein Urine Glucose (UA) Urine Ketones Urine Occult Blood Urine Nitrate Urine Bilirubin Ur Bilirubin Confirm Urine Urobilinogen Ur Leukocyte Esterase Urine RBC Urine WBC Amorphous Sediment Urine Bacteria Hyaline Casts Ur Culture Indicated? Nasal Screen MRSA (PCR) U Opiates 300ng/mL cut Ur Oxycodone Screen Urine Methadone Screen Ur Barbiturates Screen U Tricyclic Antidepress Ur Phencyclidine Scrn Ur Amphetamines Screen U Methamphetamines Scrn Ur MDMA Scrn (Ecstasy) U Benzodiazepines Scrn Urine Cocaine Screen U Marijuana (THC) Screen A. baumannii (PCR) Chlamy pneumoniae PCR Adenovirus (PCR) B. pertussis DNA (PCR) B.parapertussis DNA PCR Magui albicans (PCR) C. glabrata (PCR) C. krusei (PCR) C. parapsilosis (PCR) C. tropicalis (PCR) Coronavirus OC43 (PCR) Coronavirus HKU1 (PCR) Coronavirus 229E (PCR) SARS-CoV-2 (PCR) Coronavirus NL63 (PCR) Enterobacteriac sp PCR E. cloacae complex PCR Enterococcus sp PCR E. coli (PCR) H. influenzae (PCR) Human Metapneumovir PCR Influenza Type A (PCR) Influenza Type B (PCR) Klebsiella oxytoca PCR Klebsiella pneumoniae List. monocytogenes PCR M. pneumoniae (PCR) N. meningitidis (PCR) Parainfluenza 1 (PCR) Parainfluenza 2 (PCR) Parainfluenza 3 (PCR) Parainfluenza 4 (PCR) Proteus species (PCR) RSV (PCR) Entero/Rhino (PCR) Serratia marcescens PCR Staphylococcus sp PCR Staph aureus (PCR) mecA-Methicil Res Gene Streptococcus sp PCR Group A Strep (PCR) Strep agalactiae (PCR) Strep pneumoniae (PCR) P. aeruginosa (PCR) Maricruz/B-Vanco Res Genes KPC-Carbap Res Gene PCR 03/27/22 03/27/22 03/27/22 08:45 08:45 08:45 WBC RBC Hgb Hct MCV MCH MCHC RDW Plt Count Neut % (Auto) Lymph % (Auto) [place] % (Auto) Eos % (Auto) Baso % (Auto) Neut # (Auto) Lymph # (Auto) Kendall # (Auto) Eos # (Auto) Baso # (Auto) Total Counted Seg Neutrophils % Band Neutrophils % Lymphocytes % (Manual) Atypical Lymphs % Monocytes % (Manual) Metamyelocytes % Neutrophils # (Manual) Nucleated RBCs RBC Morphology PT INR APTT D-Dimer ABG pH ABG pCO2 ABG pO2 ABG HCO3 ABG Total CO2 ABG O2 Saturation ABG Base Excess FiO2 Sodium Potassium Chloride Carbon Dioxide BUN Creatinine Estimated GFR BUN/Creatinine Ratio Glucose Lactate 1.5 Calcium Phosphorus Magnesium Total Bilirubin AST ALT Alkaline Phosphatase Total Creatine Kinase 93 CK-MB (CK-2) TNP CK-MB (CK-2) Rel Index TNP Troponin I 0.096 H 0.095 H NT-Pro-B Natriuret Pep Total Protein Albumin Globulin Albumin/Globulin Ratio Triglycerides Cholesterol LDL Cholesterol, Calc HDL Cholesterol Lipase Procalcitonin TSH Serum , Qual Urine Color Urine Appearance Urine pH Ur Specific [place] Urine Protein Urine Glucose (UA) Urine Ketones Urine Occult Blood Urine Nitrate Urine Bilirubin Ur Bilirubin Confirm Urine Urobilinogen Ur Leukocyte Esterase Urine RBC Urine WBC Amorphous Sediment Urine Bacteria Hyaline Casts Ur Culture Indicated? Nasal Screen MRSA (PCR) U Opiates 300ng/mL cut Ur Oxycodone Screen Urine Methadone Screen Ur Barbiturates Screen U Tricyclic Antidepress Ur Phencyclidine Scrn Ur Amphetamines Screen U Methamphetamines Scrn Ur MDMA Scrn (Ecstasy) U Benzodiazepines Scrn Urine Cocaine Screen U Marijuana (THC) Screen A. baumannii (PCR) Chlamy pneumoniae PCR Adenovirus (PCR) B. pertussis DNA (PCR) B.parapertussis DNA PCR Magui albicans (PCR) C. glabrata (PCR) C. krusei (PCR) C. parapsilosis (PCR) C. tropicalis (PCR) Coronavirus OC43 (PCR) Coronavirus HKU1 (PCR) Coronavirus 229E (PCR) SARS-CoV-2 (PCR) Coronavirus NL63 (PCR) Enterobacteriac sp PCR E. cloacae complex PCR Enterococcus sp PCR E. coli (PCR) H. influenzae (PCR) Human Metapneumovir PCR Influenza Type A (PCR) Influenza Type B (PCR) Klebsiella oxytoca PCR Klebsiella pneumoniae List. monocytogenes PCR M. pneumoniae (PCR) N. meningitidis (PCR) Parainfluenza 1 (PCR) Parainfluenza 2 (PCR) Parainfluenza 3 (PCR) Parainfluenza 4 (PCR) Proteus species (PCR) RSV (PCR) Entero/Rhino (PCR) Serratia marcescens PCR Staphylococcus sp PCR Staph aureus (PCR) mecA-Methicil Res Gene Streptococcus sp PCR Group A Strep (PCR) Strep agalactiae (PCR) Strep pneumoniae (PCR) P. aeruginosa (PCR) Maricruz/B-Vanco Res Genes KPC-Carbap Res Gene PCR 03/27/22 03/27/22 03/27/22 08:45 08:56 10:54 WBC RBC Hgb Hct MCV MCH MCHC RDW Plt Count Neut % (Auto) Lymph % (Auto) [place] % (Auto) Eos % (Auto) Baso % (Auto) Neut # (Auto) Lymph # (Auto) [place] # (Auto) Eos # (Auto) Baso # (Auto) Total Counted Seg Neutrophils % Band Neutrophils % Lymphocytes % (Manual) Atypical Lymphs % Monocytes % (Manual) Metamyelocytes % Neutrophils # (Manual) Nucleated RBCs RBC Morphology PT INR APTT D-Dimer 4141 H ABG pH 7.20 L* 7.22 L* ABG pCO2 40.0 39.4 ABG pO2 53 L 110 H ABG HCO3 16 L 16 L ABG Total CO2 17 L 17 L ABG O2 Saturation 79 L* 97 ABG Base Excess -12.0 L -12.0 L FiO2 100 100 Sodium Potassium Chloride Carbon Dioxide BUN Creatinine Estimated GFR BUN/Creatinine Ratio Glucose Lactate Calcium Phosphorus Magnesium Total Bilirubin AST ALT Alkaline Phosphatase Total Creatine Kinase CK-MB (CK-2) CK-MB (CK-2) Rel Index Troponin I NT-Pro-B Natriuret Pep Total Protein Albumin Globulin Albumin/Globulin Ratio Triglycerides Cholesterol LDL Cholesterol, Calc HDL Cholesterol Lipase Procalcitonin TSH Serum , Qual Urine Color Urine Appearance Urine pH Ur Specific [place] Urine Protein Urine Glucose (UA) Urine Ketones Urine Occult Blood Urine Nitrate Urine Bilirubin Ur Bilirubin Confirm Urine Urobilinogen Ur Leukocyte Esterase Urine RBC Urine WBC Amorphous Sediment Urine Bacteria Hyaline Casts Ur Culture Indicated? Nasal Screen MRSA (PCR) U Opiates 300ng/mL cut Ur Oxycodone Screen Urine Methadone Screen Ur Barbiturates Screen U Tricyclic Antidepress Ur Phencyclidine Scrn Ur Amphetamines Screen U Methamphetamines Scrn Ur MDMA Scrn (Ecstasy) U Benzodiazepines Scrn Urine Cocaine Screen U Marijuana (THC) Screen A. baumannii (PCR) Chlamy pneumoniae PCR Adenovirus (PCR) B. pertussis DNA (PCR) B.parapertussis DNA PCR Magui albicans (PCR) C. glabrata (PCR) C. krusei (PCR) C. parapsilosis (PCR) C. tropicalis (PCR) Coronavirus OC43 (PCR) Coronavirus HKU1 (PCR) Coronavirus 229E (PCR) SARS-CoV-2 (PCR) Coronavirus NL63 (PCR) Enterobacteriac sp PCR E. cloacae complex PCR Enterococcus sp PCR E. coli (PCR) H. influenzae (PCR) Human Metapneumovir PCR Influenza Type A (PCR) Influenza Type B (PCR) Klebsiella oxytoca PCR Klebsiella pneumoniae List. monocytogenes PCR M. pneumoniae (PCR) N. meningitidis (PCR) Parainfluenza 1 (PCR) Parainfluenza 2 (PCR) Parainfluenza 3 (PCR) Parainfluenza 4 (PCR) Proteus species (PCR) RSV (PCR) Entero/Rhino (PCR) Serratia marcescens PCR Staphylococcus sp PCR Staph aureus (PCR) mecA-Methicil Res Gene Streptococcus sp PCR Group A Strep (PCR) Strep agalactiae (PCR) Strep pneumoniae (PCR) P. aeruginosa (PCR) Maricruz/B-Vanco Res Genes KPC-Carbap Res Gene PCR 03/27/22 03/27/22 03/27/22 13:29 14:48 15:44 WBC RBC Hgb Hct MCV MCH MCHC RDW Plt Count Neut % (Auto) Lymph % (Auto) [place] % (Auto) Eos % (Auto) Baso % (Auto) Neut # (Auto) Lymph # (Auto) [place] # (Auto) Eos # (Auto) Baso # (Auto) Total Counted Seg Neutrophils % Band Neutrophils % Lymphocytes % (Manual) Atypical Lymphs % Monocytes % (Manual) Metamyelocytes % Neutrophils # (Manual) Nucleated RBCs RBC Morphology PT INR APTT D-Dimer ABG pH 7.21 L* ABG pCO2 46.9 H ABG pO2 50 L ABG HCO3 19 L ABG Total CO2 20 L ABG O2 Saturation 76 L* ABG Base Excess -9.0 L FiO2 80 Sodium Potassium Chloride Carbon Dioxide BUN Creatinine Estimated GFR BUN/Creatinine Ratio Glucose Lactate Calcium Phosphorus Magnesium Total Bilirubin AST ALT Alkaline Phosphatase Total Creatine Kinase 198 H CK-MB (CK-2) 3.71 H CK-MB (CK-2) Rel Index 1.9 Troponin I 0.122 H* 0.110 H NT-Pro-B Natriuret Pep Total Protein Albumin Globulin Albumin/Globulin Ratio Triglycerides Cholesterol LDL Cholesterol, Calc HDL Cholesterol Lipase Procalcitonin TSH Serum , Qual Urine Color Urine Appearance Urine pH Ur Specific [place] Urine Protein Urine Glucose (UA) Urine Ketones Urine Occult Blood Urine Nitrate Urine Bilirubin Ur Bilirubin Confirm Urine Urobilinogen Ur Leukocyte Esterase Urine RBC Urine WBC Amorphous Sediment Urine Bacteria Hyaline Casts Ur Culture Indicated? Nasal Screen MRSA (PCR) U Opiates 300ng/mL cut Ur Oxycodone Screen Urine Methadone Screen Ur Barbiturates Screen U Tricyclic Antidepress Ur Phencyclidine Scrn Ur Amphetamines Screen U Methamphetamines Scrn Ur MDMA Scrn (Ecstasy) U Benzodiazepines Scrn Urine Cocaine Screen U Marijuana (THC) Screen A. baumannii (PCR) Chlamy pneumoniae PCR Adenovirus (PCR) B. pertussis DNA (PCR) B.parapertussis DNA PCR Magui albicans (PCR) C. glabrata (PCR) C. krusei (PCR) C. parapsilosis (PCR) C. tropicalis (PCR) Coronavirus OC43 (PCR) Coronavirus HKU1 (PCR) Coronavirus 229E (PCR) SARS-CoV-2 (PCR) Coronavirus NL63 (PCR) Enterobacteriac sp PCR E. cloacae complex PCR Enterococcus sp PCR E. coli (PCR) H. influenzae (PCR) Human Metapneumovir PCR Influenza Type A (PCR) Influenza Type B (PCR) Klebsiella oxytoca PCR Klebsiella pneumoniae List. monocytogenes PCR M. pneumoniae (PCR) N. meningitidis (PCR) Parainfluenza 1 (PCR) Parainfluenza 2 (PCR) Parainfluenza 3 (PCR) Parainfluenza 4 (PCR) Proteus species (PCR) RSV (PCR) Entero/Rhino (PCR) Serratia marcescens PCR Staphylococcus sp PCR Staph aureus (PCR) mecA-Methicil Res Gene Streptococcus sp PCR Group A Strep (PCR) Strep agalactiae (PCR) Strep pneumoniae (PCR) P. aeruginosa (PCR) Maricruz/B-Vanco Res Genes KPC-Carbap Res Gene PCR 03/27/22 03/27/22 03/27/22 15:52 15:52 15:52 WBC 3.5 L D RBC 3.47 L Hgb 10.4 L Hct 30.6 L MCV 88.3 MCH 30.1 MCHC 34.1 RDW 13.5 Plt Count 171 Neut % (Auto) Not Reportable Lymph % (Auto) Not Reportable [place] % (Auto) Not Reportable Eos % (Auto) Not Reportable Baso % (Auto) Not Reportable Neut # (Auto) Lymph # (Auto) Not Reportable [place] # (Auto) Not Reportable Eos # (Auto) Baso # (Auto) Not Reportable Total Counted 100 Seg Neutrophils % 35.0 L Band Neutrophils % 48.0 H Lymphocytes % (Manual) 13.0 L Atypical Lymphs % Monocytes % (Manual) 1.0 L Metamyelocytes % 3.0 H Neutrophils # (Manual) 2905 L Nucleated RBCs 1 H RBC Morphology Normal morphology PT INR APTT D-Dimer ABG pH ABG pCO2 ABG pO2 ABG HCO3 ABG Total CO2 ABG O2 Saturation ABG Base Excess FiO2 Sodium 131 L Potassium 3.3 L Chloride 94 L Carbon Dioxide 18 L BUN 56 H Creatinine 2.97 H Estimated GFR 20 L BUN/Creatinine Ratio 18.9 Glucose 381 H D Lactate Calcium 5.5 L* Phosphorus 6.1 H Magnesium 1.9 Total Bilirubin AST ALT Alkaline Phosphatase Total Creatine Kinase 198 H CK-MB (CK-2) 3.55 H CK-MB (CK-2) Rel Index 1.8 Troponin I 0.106 H NT-Pro-B Natriuret Pep Total Protein Albumin Globulin Albumin/Globulin Ratio Triglycerides Cholesterol LDL Cholesterol, Calc HDL Cholesterol Lipase Procalcitonin TSH Serum , Qual Urine Color Urine Appearance Urine pH Ur Specific [place] Urine Protein Urine Glucose (UA) Urine Ketones Urine Occult Blood Urine Nitrate Urine Bilirubin Ur Bilirubin Confirm Urine Urobilinogen Ur Leukocyte Esterase Urine RBC Urine WBC Amorphous Sediment Urine Bacteria Hyaline Casts Ur Culture Indicated? Nasal Screen MRSA (PCR) U Opiates 300ng/mL cut Ur Oxycodone Screen Urine Methadone Screen Ur Barbiturates Screen U Tricyclic Antidepress Ur Phencyclidine Scrn Ur Amphetamines Screen U Methamphetamines Scrn Ur MDMA Scrn (Ecstasy) U Benzodiazepines Scrn Urine Cocaine Screen U Marijuana (THC) Screen A. baumannii (PCR) Chlamy pneumoniae PCR Adenovirus (PCR) B. pertussis DNA (PCR) B.parapertussis DNA PCR Magui albicans (PCR) C. glabrata (PCR) C. krusei (PCR) C. parapsilosis (PCR) C. tropicalis (PCR) Coronavirus OC43 (PCR) Coronavirus HKU1 (PCR) Coronavirus 229E (PCR) SARS-CoV-2 (PCR) Coronavirus NL63 (PCR) Enterobacteriac sp PCR E. cloacae complex PCR Enterococcus sp PCR E. coli (PCR) H. influenzae (PCR) Human Metapneumovir PCR Influenza Type A (PCR) Influenza Type B (PCR) Klebsiella oxytoca PCR Klebsiella pneumoniae List. monocytogenes PCR M. pneumoniae (PCR) N. meningitidis (PCR) Parainfluenza 1 (PCR) Parainfluenza 2 (PCR) Parainfluenza 3 (PCR) Parainfluenza 4 (PCR) Proteus species (PCR) RSV (PCR) Entero/Rhino (PCR) Serratia marcescens PCR Staphylococcus sp PCR Staph aureus (PCR) mecA-Methicil Res Gene Streptococcus sp PCR Group A Strep (PCR) Strep agalactiae (PCR) Strep pneumoniae (PCR) P. aeruginosa (PCR) Maricruz/B-Vanco Res Genes KPC-Carbap Res Gene PCR 03/27/22 15:52 WBC RBC Hgb Hct MCV MCH MCHC RDW Plt Count Neut % (Auto) Lymph % (Auto) [place] % (Auto) Eos % (Auto) Baso % (Auto) Neut # (Auto) Lymph # (Auto) [place] # (Auto) Eos # (Auto) Baso # (Auto) Total Counted Seg Neutrophils % Band Neutrophils % Lymphocytes % (Manual) Atypical Lymphs % Monocytes % (Manual) Metamyelocytes % Neutrophils # (Manual) Nucleated RBCs RBC Morphology PT INR APTT D-Dimer ABG pH ABG pCO2 ABG pO2 ABG HCO3 ABG Total CO2 ABG O2 Saturation ABG Base Excess FiO2 Sodium Potassium Chloride Carbon Dioxide BUN Creatinine Estimated GFR BUN/Creatinine Ratio Glucose Lactate 2.7 H Calcium Phosphorus Magnesium Total Bilirubin AST ALT Alkaline Phosphatase Total Creatine Kinase CK-MB (CK-2) CK-MB (CK-2) Rel Index Troponin I NT-Pro-B Natriuret Pep Total Protein Albumin Globulin Albumin/Globulin Ratio Triglycerides Cholesterol LDL Cholesterol, Calc HDL Cholesterol Lipase Procalcitonin TSH Serum , Qual Urine Color Urine Appearance Urine pH Ur Specific [place] Urine Protein Urine Glucose (UA) Urine Ketones Urine Occult Blood Urine Nitrate Urine Bilirubin Ur Bilirubin Confirm Urine Urobilinogen Ur Leukocyte Esterase Urine RBC Urine WBC Amorphous Sediment Urine Bacteria Hyaline Casts Ur Culture Indicated? Nasal Screen MRSA (PCR) U Opiates 300ng/mL cut Ur Oxycodone Screen Urine Methadone Screen Ur Barbiturates Screen U Tricyclic Antidepress Ur Phencyclidine Scrn Ur Amphetamines Screen U Methamphetamines Scrn Ur MDMA Scrn (Ecstasy) U Benzodiazepines Scrn Urine Cocaine Screen U Marijuana (THC) Screen A. baumannii (PCR) Chlamy pneumoniae PCR Adenovirus (PCR) B. pertussis DNA (PCR) B.parapertussis DNA PCR Magui albicans (PCR) C. glabrata (PCR) C. krusei (PCR) C. parapsilosis (PCR) C. tropicalis (PCR) Coronavirus OC43 (PCR) Coronavirus HKU1 (PCR) Coronavirus 229E (PCR) SARS-CoV-2 (PCR) Coronavirus NL63 (PCR) Enterobacteriac sp PCR E. cloacae complex PCR Enterococcus sp PCR E. coli (PCR) H. influenzae (PCR) Human Metapneumovir PCR Influenza Type A (PCR) Influenza Type B (PCR) Klebsiella oxytoca PCR Klebsiella pneumoniae List. monocytogenes PCR M. pneumoniae (PCR) N. meningitidis (PCR) Parainfluenza 1 (PCR) Parainfluenza 2 (PCR) Parainfluenza 3 (PCR) Parainfluenza 4 (PCR) Proteus species (PCR) RSV (PCR) Entero/Rhino (PCR) Serratia marcescens PCR Staphylococcus sp PCR Staph aureus (PCR) mecA-Methicil Res Gene Streptococcus sp PCR Group A Strep (PCR) Strep agalactiae (PCR) Strep pneumoniae (PCR) P. aeruginosa (PCR) Maricruz/B-Vanco Res Genes KPC-Carbap Res Gene PCR REPLACED BY [facility] Social History household members: none Smoking Status: Unknown if ever smoked Assessment & Plan Assessment & Plan narrative: # septic shock secondary to severe ARDS from bilateral pneumonia and strep pneumoniae bacteremia -CXR with dense RUL infiltrate, as well as left lower lobe infiltrates likely secondary to strep pneumo -blood cultures 4/ with strep pneumoniae -continue rocephin but increase to 2g BID due to bacteremia, continue azithro x3 days for atypical coverage -currently on levophed, vasopressin and epi. Now able to wean epi down -maintain MAP >65 -appreciate tele-ICU consultation and recs -continue sedation with versed, precedex and fentanyl, once sedated fully can start rocuronium drip for paralysis and possible proning -patient is good candidate for ECMO if not improving -continue solu cortef stress dose steroids -vent management per tele-ICU -LE neg for DVT -echo pending # hyperglycemia -BG 400+ likely due to steroids -start lantus 10u nightly and q6h regular insulin sliding scale -check A1c Code status:Full Surrogate decision maker: Spouse bora CRUZ PCR: Negative DVT/VTE prophylaxis: heparin subq Disposition:?Several days as critically ill. I spent a total of 35 minutes of critical care time on this patient's care today; this time is exclusive of procedural time. Time Spent With Patient Critical Care time: I spent a total of [] minutes of critical care time on this patient's care today; this time is exclusive of procedural time.
[2022-03-27] MEDS: FENTANYL IV (18:23)
--- NOTE | 2022-03-27 18:27 | PM.PROC.1 ---
Procedures Date/Time Date of procedure: 03/27/22 Time of procedure: 08:30 General Procedure description: Arterial Line Procedure Note A time-out was completed verifying correct patient, procedure, site, positioning, and special equipment if applicable. The patient was placed in a dependent position appropriate for arterial line placement. The patient?s right wrist was prepped in sterile fashion. A small catheter was introduced into the the right radial artery using the Seldinger technique under ultrasound guidance. The catheter was threaded smoothly over the guide wire and appropriate blood return was obtained. A good waveform was present on the monitor. The catheter was then fixed in place with a sterile tegaderm. Estimated Blood Loss: 0cc Dr. Fuentes
[2022-03-27] MEDS: POTASSIUM CHLORIDE IN WATER 10 MEQ/100 ML PIGGYBACK 100 MEQ IV ×4 (18:30→21:38)
[2022-03-27] MEDS: INSULIN REGULAR 100 UNIT/ML 3 ML VIAL SUBCUT (18:36)
[2022-03-27] MEDS: ALBUTEROL/IPRATROPIUM 3 ML AMPUL INH (19:15)
[2022-03-27 19:38] LABS: Fractionated Inspired Oxygen 90; HCO3 ABG 20 mmol/L (22-26); Oxygen Saturation ABG 86 % (95-100); PO2 ABG 62 mmHg (80-100); TCO2 ABG 22 mmol/L (21-31); pH ABG 7.21 (7.35-7.45)
[2022-03-27] MEDS: CALCIUM GLUCONATE 9.3 MEQ in SODIUM CHLORIDE 0.9% 100 ML 240 MEQ IV (20:11)
--- NOTE | 2022-03-27 20:31 | P.ICUMDRN_ITS ---
- Date Patient Seen: 03/27/22 :: This patient was seen via real time interactive two-way audiovisual telecommunic ation. Note: Patient discussed with RN during rounds. Also discussed and evaluated multiple times previously this evening - spoke with RN, RT. Also discussed with hospitalist/bedside team. Evaluated patient video audiovisual communication given critical status. Persistent shock, on 3 pressors - Levo, Vaso, Epi - able to wean Epi slightly over course of my shift. UOP slowly improving, currently about 100 cc/hour. IVFs stopped given teneous respiratory status and patient >6-7L positive since admission. Noted to have high peak and plateau pressures. No PTX on CXR. Weaned TV, PEEP down. Unable to further increase respiratory rate given prolonged exhalation. Continues on stress dose steroids, antibiotics. Added on Duonebs. Continues on bicarb drip. I suspect patient's respiratory status may continue to decline and without adequately functioning kidneys, will likely not be able to maintain pH > 7.2 thus necessitating HD. Was able to come down slightly on PEEP and is able to maintain adequate PaO2s. Is nearly maxed on the vent at this time from a ventilatory perspective - further increases in her RR are increasing airway pressures due to inadequate exhalation. Can consider paralysis, currently targeting RASS -3 to -4 with sedatives to allow better vent synchrony. Pending kidney status, Would recommend proning - though per RN pron ing can't start until tomorrow morning due to staffing concerns.
[2022-03-27 20:38] LABS: Fractionated Inspired Oxygen 90; HCO3 ABG 20 mmol/L (22-26); Oxygen Saturation ABG 86 % (95-100); PCO2 ABG 49.7 mmHg (35-45); PO2 ABG 63 mmHg (80-100); TCO2 ABG 21 mmol/L (21-31)
[2022-03-27 20:39] LABS: pH ABG 7.21 (7.35-7.45)
[2022-03-27] MEDS: AZITHROMYCIN 500 MG in DEXTROSE 5% IN WATER 250 ML 250 MG IV (20:58)
[2022-03-27] MEDS: HEPARIN 5,000 UNIT/ML VIAL 5000 UNIT SUBCUT (21:12)
[2022-03-27] MEDS: INSULIN GLARGINE 100 UNIT/ML 3ML PEN 10 UNIT SUBCUT (21:18)
[2022-03-27 21:53] LABS: Creatine Kinase 176 U/L (30-135)
--- NOTE | 2022-03-27 21:56 | PM.EVENT ---
Event Note Date Patient Seen: 03/27/22 Time Patient Seen: 22:00 Event Note (Rapid Response, Code, or fall): Chart reviewed. Anamaria admitted for severe ARDS and septic shock secondary to streptococcus pneumonia complicated with multiorgan failure. ABG -> 7.21/49/63 w/ P/F ratio 70 on PEEP 16 and FiO2 90%. Currently maxed out on levophed, vasopressin, and epinephrine gtt. Will titrate down fentanyl to 3 mcg/kg/hr and increase versed to 1 mg/kg/hr. Start rocuronium gtt to titrate for vent dyssynchrony. Pending transfer to tertiary care for potential renal replacement therapy. D/w RN.
--- NOTE | 2022-03-27 22:03 | PC.NURSE ---
Addendum entered by Kristina Stanford R.N. 03/27/22 22:49: Discussed rocuronium drip with microfilming document preparer. Ordered 60 mg rocuronium pushes Q1H PRN for vent dyssynchrony. Original Note: Gin Operator called for updates on patient. Notified that an attempt to ween pt slowly off epi drip was unsuccessful, as MAP significantly drops when adjusted from 10 mcg/min to 8 mcg/min. Due to patient slightly breathing over ventilator, ordered to start Rocuronium drip. Also ordered adjustment of sedation medication, wanting Fentanyl at 2.5-3 mcg/kg/hr and versed at 0.1 mg/kg/hr. Also ordered for another ABG to be drawn roughly an hour after the rocuronium drip is started. Pt current RASS score of -4.
[2022-03-27 22:06] LABS: Troponin I 0.092 ng/mL (0.01-0.034)
[2022-03-27 22:09] LABS: CKMB % Relative Index 1.6 % (1.5-5.0); Creatine Kinase MB 2.84 ng/mL (<2.37)
[2022-03-27] MEDS: MINERAL OIL/PETROL OPHTH OINT 3.5 GM 1 APPLIC EYE-BOTH (23:45)
[2022-03-28] VITALS (10 sets, daily range): BP systolic 91–117; BP diastolic 65–76; PULSE 91–101; RESP 24–30; TEMP 36.6–38.1; O2SAT 92–94
[2022-03-28] MEDS: HYDROCORTISONE 100 MG/2 ML VIAL 50 MG IV (00:06)
[2022-03-28] MEDS: INSULIN REGULAR 100 UNIT/ML 3 ML VIAL SUBCUT (00:10)
[2022-03-28] MEDS: ACETAMINOPHEN 650 MG SUPP PR (01:30)
[2022-03-28] MEDS: SODIUM BICARB 8.4% VIAL 100 MEQ in DEXTROSE 5% WATER 1,000 ML 150 MEQ IV (02:04)
--- NOTE | 2022-03-28 02:45 | DI.RAD.S_ITS ---
PROCEDURE: XR CHEST 1V INDICATIONS: Intubated pneumonia TECHNIQUE: One view of the chest was acquired. COMPARISON: [facility], CR, XR CHEST 1V, 03/27/2022, 18:02. FINDINGS: Surgical changes and devices: ET tube and NG tube are in satisfactory position. Central line extends to the mid right atrium. Suggest repositioning. Lungs and pleura: Dense pneumonia, right upper lobe. Focal dense pneumonia, right lung base, diffuse pneumonia, left mid and lower lung field. Mediastinum: Mediastinal contours appear normal. Heart size is normal. Bones and chest wall: No suspicious bony lesions. Overlying soft tissues appear unremarkable. IMPRESSION: 1. Suggest repositioning of right IJ line. 2. Extensive bilateral pneumonia, most severe in the right upper lobe. Comment: I called the nursing unit to discuss the right IJ line on 03/28/2022 at 1121 hours. Patient had been transferred to a different care facility. Dictated by: Justo Stevens M.D. on 03/28/2022 at 10:52 Approved by: Justo Stevens M.D. on 03/28/2022 at 11:24
[2022-03-28] MEDS: WATER IV ×2 (04:00→04:10)
[2022-03-28] MEDS: FENTANYL IV (04:00)
[2022-03-28] MEDS: DEXTROSE 5% IV ×2 (04:00→04:10)
[2022-03-28] MEDS: MIDAZOLAM IV (04:10)
--- NOTE | 2022-03-28 04:33 | PM.DS.1 ---
History of Present Illness History of Present Illness Chief complaint: SOB, Fever, Body aches, Vomiting Narrative: Stephan Yepez is a 41-year-old female without past medical history or medications presented to ED with cough fever and shortness of breath sick x4 day with body aches fevers and chills and decreased output as well. Presented in obvious respiratory distress and hypoxic.?She reported that she vape and uses Kratom, feels like she can not breathe and her lungs are tired.?Denied abdominal pain nausea vomiting or diarrhea.? She has traveled anywhere. Per Dr. Tavarez ED:Patient presents in obvious respiratory distress.? X-ray shows bilateral significant pneumonia.? His respiratory panel a surprisingly weak.? She was initially put on nasal cannula for brief moment and then switched to high-flow nasal cannula.? She did not like how it felt and did not tolerate.? she was switched over to BiPAP which she did a little bit better.? However she is still quite tachypneic not tolerating BiPAP and needed intubation.? She was intubated and started on vasopressors for hypotension.? She is given prophylactic antibiotics as well Rocephin azithromycin for community-acquired pneumonia is.? No to on 100% was 45 here in the ED. she is found have acute kidney injury with a creatinine of 3.15 as well.? Love catheters placed monitoring in & out.? She is given sepsis fluid boluses. Patient unable to participate in admit, arrived on the floor intubated and sedated. Patient's mother was at the bedside at the time of admit and stated that her daughter took no medications, had no medical conditions, did not use any substances, or alcohol. Critical care bed side for >60 min for critical care admit. admit 99.2, 103/64, 106, 30, 92% on 100%, TV 500, peep 8, Rate 22, wbc 1.6, na 132, cl 93, 57, K3.2, aircraft skin burnisher 3.15, bs 125, ca 7.6, grf 18-Gap 16, CCL 35, SOFA:6, Curb -65:2, Lac 2, proc 58.3, BNP 9680, ABG: ph 7.23, pco2 45.5, p02 48, Hc03 19, 02 sat 76% base excess-8, FiO2 100. Patient's initial chest x-ray in the ED demonstrated right upper lobe suprahilar airspace opacities peripheral left basilar opacities without pleural effusion or pneumothorax repeat chest x-ray demonstrated correct tube placement. Patient was admitted for sepsis with septic shock, acute respiratory failure with hypoxia, hypercapnia,respiratory & metabolic acidosis, secondary to pneumonia, intubated with BRAIN, and acute heart failure. 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 operator Routine Comment: Consulting Provider: Arnaldo Tele-intensivists Reason for consultation: [employer] services Discharge provider: JONATHAN Weems Summary Hospital Course Discharge Diagnosis: # septic shock secondary to severe ARDS from bilateral pneumonia and strep pneumoniae bacteremia -CXR with dense RUL infiltrate, as well as left lower lobe infiltrates likely secondary to strep pneumo -blood cultures 07/25 with strep pneumoniae -continue rocephin but increase to 2g BID due to bacteremia, continue azithro x3 days for atypical coverage -currently on levophed, vasopressin and epi. Now able to wean epi down -maintain MAP >65 -appreciate tele-ICU consultation and recs -continue sedation with versed, precedex and fentanyl, once sedated fully can start rocuronium drip for paralysis and possible proning -patient is good candidate for ECMO if not improving -continue solu cortef stress dose steroids -vent management per tele-ICU -LE neg for DVT -echo 03/27/2022 EF40-45% # hyperglycemia -BG 400+ likely due to steroids -start lantus 10u nightly and q6h regular insulin sliding scale -check A1c ?BRAIN, secondary to sepsis/septic shock/respiratory/metabolic acidosis,with Gap 16, acute, present on admission - na 132, cl 93, 57, K3.2, aircraft skin burnisher 3.15, bs 125, ca 7.6, grf 18-Gap 16, CCL 35. -Discussed electrolyte correction, fluids, and gap with Dr. Thomas, we will replenish delete electrolytes and monitor closely. -patient requires transfer to facility with a higher level of care with endocrinology/nephrology as she is likely to require dialysis if she continues to deteriorate -avoid nephrotoxic medication -Love in place for accurate I and O -notify provider if< 50 cc/HR -urine culture pending -monitor electrolytes closely Heart failure, acute, present on admission -BNP 9680 -holding diuresis at this time due to elevated creatinine, BUN, and low GFR -ordered echo -Ordered lipids TSH repeat BNP Obese, mild, acute on chronic, present on admission -as evidence by BMI of 32.4 -dietary consult DEFERRED -Will order after acute illness regarding nutritional education and information for dietary, lifestyle, exercise, and weight changes. -the patient is at much higher risk for medical and surgical complications due to obesity as it relates to sepsis, septic shock, acute respiratory failure, pneumonia.? The patient's obesity increases the difficulty and complexity of medical and/or surgical interventions, management and increases the chances of poor outcome such as morbidity and mortality as well as impaired oxygenation. ? Critical care admit bedside > 60 minutes Code status:Full Surrogate decision maker: Arun Man (Father) listed in chart COVID PCR:Negative DVT/VTE prophylaxis:? Heparin and SCDs Status at Discharge Overall status at discharge: other (patient is stabilized for transport to higher acuity facility) Time Spent with Patient Time spent: Greater than 30 minutes Exam Vital Signs (past 8 hours): - 03/27/22 21:00 03/27/22 22:00 03/27/22 22:52 Temperature 100.5 F H 101 F H 100.5 F H Pulse Rate 106 H 109 H Respiratory Rate 28 H 32 H Blood Pressure 115/69 105/68 Pulse Oximetry 93 91 Oxygen Delivery Method Fraction of Inspired Oxygen 90 90 03/27/22 23:00 03/27/22 23:39 03/28/22 00:00 Temperature 98.8 F 100 F H Pulse Rate 104 H 101 H Respiratory Rate 25 H 28 H Blood Pressure 100/60 95/66 Pulse Oximetry 92 93 Oxygen Delivery Method Fraction of Inspired Oxygen 90 90 03/28/22 00:00 03/28/22 01:00 03/28/22 01:30 Temperature 99.9 F H 100.5 F H Pulse Rate 100 H Respiratory Rate 27 H Blood Pressure 91/75 Pulse Oximetry 92 Oxygen Delivery Method Mechanical Ventilation Fraction of Inspired Oxygen 90 03/28/22 02:02 03/28/22 02:00 03/28/22 03:00 Temperature 100.4 F H 97.9 F 98.5 F Pulse Rate 96 H 92 H Respiratory Rate 24 27 H Blood Pressure 107/76 107/68 Pulse Oximetry 92 93 Oxygen Delivery Method Fraction of Inspired Oxygen 90 90 Fraction of Inspired Oxygen 90 Oxygen Delivery Method Mechanical Ventilation Narrative Exam Narrative: General:? Patient is a well-developed, well-nourished female obese female, heavily sedated intubated with orogastric tube, right central line, right wrist ART line, and Love catheter, stable vitals, blood pressures are slightly soft, mild tachypnea continues.? Patient is in no acute distress at this time. Stable for transport HEENT:? Normocephalic, atraumatic, ? Neck is supple and symmetric, central line-right, trachea is midline, no adenopathy or masses palpated.? Negative for JVD Chest:? Normal AP diameter and contour without kyphoscoliosis, no nasal flaring, retractions, or labored breathing, continued intermittent mild tachypnea Lungs:? Auscultation of all lung betancur are coarse good air exchange equal throughout. Cardio:? Tachycardic labile rate and regular rhythm without murmur, rubs, or gallops, no carotid bruit, no cardiac pulsations present. Abdomen:? Soft nontender, possibly slightly distended unable to know if this is patient's baseline, negative for organomegaly, or masses.? Bowel sounds are hypoactive present in all 4 quadrants without guarding or rebound, no CVA tenderness. Musculoskeletal:? Muscle tone appears equal, no obvious deformity, crepitus, effusions, cyanosis, clubbing observed.? Positive bilateral +1 lower extremity edema even nonpitting from trunk to toes.? Patient currently in soft wrist restraints, due to her attempts in the ED to remove lines & Love.? Patient waking intermittently due to lack of sedation appears to move all extremities, intact radial and pedal pulses are normal. Skin:? warm dry and intact without rashes, ulcerations or petechiae.? Neuro:? Sedated, intermittently wakes moves all extremities, sensation to touch intact. We are struggling to balance the amount of sedation the patient requires while maintaining a map greater than 65, heart rate less than 110, and a respiratory rate less than 28. Psych:? Unable to assess due to sedation and intubation Objective Labs Result Diagrams: 03/27/22 15:52 03/27/22 15:52 Labs: Laboratory Results - last 24 hr 03/26/22 03/26/22 03/27/22 22:11 22:11 03:00 WBC RBC Hgb Hct MCV MCH MCHC RDW Plt Count Neut % (Auto) Lymph % (Auto) [place] % (Auto) Eos % (Auto) Baso % (Auto) Neut # (Auto) Lymph # (Auto) [place] # (Auto) Eos # (Auto) Baso # (Auto) Total Counted 100 Seg Neutrophils % 45.0 Band Neutrophils % 5.0 Lymphocytes % (Manual) 18.0 L Atypical Lymphs % 16.0 H Monocytes % (Manual) 16.0 H Metamyelocytes % Neutrophils # (Manual) 800 L Nucleated RBCs RBC Morphology Normal morphology D-Dimer ABG pH ABG pCO2 ABG pO2 ABG HCO3 ABG Total CO2 ABG O2 Saturation ABG Base Excess FiO2 Sodium Potassium Chloride Carbon Dioxide BUN Creatinine Estimated GFR BUN/Creatinine Ratio Glucose Lactate Calcium Phosphorus Magnesium Total Bilirubin AST ALT Alkaline Phosphatase Total Creatine Kinase CK-MB (CK-2) CK-MB (CK-2) Rel Index Troponin I NT-Pro-B Natriuret Pep Total Protein Albumin Globulin Albumin/Globulin Ratio Triglycerides Cholesterol LDL Cholesterol, Calc HDL Cholesterol Procalcitonin TSH Nasal Screen MRSA (PCR) Negative for mrsa A. baumannii (PCR) Not detected Magui albicans (PCR) Not detected C. glabrata (PCR) Not detected C. krusei (PCR) Not detected C. parapsilosis (PCR) Not detected C. tropicalis (PCR) Not detected Enterobacteriac sp PCR Not detected E. cloacae complex PCR Not detected Enterococcus sp PCR Not detected E. coli (PCR) Not detected H. influenzae (PCR) Not detected Klebsiella oxytoca PCR Not detected Klebsiella pneumoniae Not detected List. monocytogenes PCR Not detected N. meningitidis (PCR) Not detected Proteus species (PCR) Not detected Serratia marcescens PCR Not detected Staphylococcus sp PCR Not detected Staph aureus (PCR) Not detected mecA-Methicil Res Gene Not Reportable Streptococcus sp PCR Detected H Group A Strep (PCR) Not detected Strep agalactiae (PCR) Not detected Strep pneumoniae (PCR) Detected H P. aeruginosa (PCR) Not detected Maricruz/B-Vanco Res Genes Not Reportable KPC-Carbap Res Gene PCR Not Reportable 03/27/22 03/27/22 03/27/22 05:07 05:12 05:12 WBC 0.5 L* D RBC 3.60 L Hgb 10.9 L Hct 31.6 L MCV 87.8 MCH 30.2 MCHC 34.4 RDW 40.7 H Plt Count 169 Neut % (Auto) 75.2 H Lymph % (Auto) 22.1 L [place] % (Auto) 1.8 L Eos % (Auto) 0.6 L Baso % (Auto) 0.3 Neut # (Auto) 0 L Lymph # (Auto) 0 L [place] # (Auto) 0 Eos # (Auto) 0 Baso # (Auto) 0 Total Counted Seg Neutrophils % Band Neutrophils % Lymphocytes % (Manual) Atypical Lymphs % Monocytes % (Manual) Metamyelocytes % Neutrophils # (Manual) Nucleated RBCs RBC Morphology Normal morphology D-Dimer ABG pH 7.27 L* ABG pCO2 40.6 ABG pO2 51 L ABG HCO3 19 L ABG Total CO2 20 L ABG O2 Saturation 81 L* ABG Base Excess -8.0 L FiO2 100 Sodium Potassium Chloride Carbon Dioxide BUN Creatinine Estimated GFR BUN/Creatinine Ratio Glucose Lactate Calcium Phosphorus Magnesium 1.4 L Total Bilirubin AST ALT Alkaline Phosphatase Total Creatine Kinase CK-MB (CK-2) CK-MB (CK-2) Rel Index Troponin I NT-Pro-B Natriuret Pep 87134 H Total Protein Albumin Globulin Albumin/Globulin Ratio Triglycerides 329 H Cholesterol 114 L LDL Cholesterol, Calc 30 HDL Cholesterol 18 L Procalcitonin 39.2 H TSH Nasal Screen MRSA (PCR) A. baumannii (PCR) Magui albicans (PCR) C. glabrata (PCR) C. krusei (PCR) C. parapsilosis (PCR) C. tropicalis (PCR) Enterobacteriac sp PCR E. cloacae complex PCR Enterococcus sp PCR E. coli (PCR) H. influenzae (PCR) Klebsiella oxytoca PCR Klebsiella pneumoniae List. monocytogenes PCR N. meningitidis (PCR) Proteus species (PCR) Serratia marcescens PCR Staphylococcus sp PCR Staph aureus (PCR) mecA-Methicil Res Gene Streptococcus sp PCR Group A Strep (PCR) Strep agalactiae (PCR) Strep pneumoniae (PCR) P. aeruginosa (PCR) Maricruz/B-Vanco Res Genes KPC-Carbap Res Gene PCR 03/27/22 03/27/22 03/27/22 05:12 05:12 05:12 WBC RBC Hgb Hct MCV MCH MCHC RDW Plt Count Neut % (Auto) Lymph % (Auto) [place] % (Auto) Eos % (Auto) Baso % (Auto) Neut # (Auto) Lymph # (Auto) [place] # (Auto) Eos # (Auto) Baso # (Auto) Total Counted Seg Neutrophils % Band Neutrophils % Lymphocytes % (Manual) Atypical Lymphs % Monocytes % (Manual) Metamyelocytes % Neutrophils # (Manual) Nucleated RBCs RBC Morphology D-Dimer ABG pH ABG pCO2 ABG pO2 ABG HCO3 ABG Total CO2 ABG O2 Saturation ABG Base Excess FiO2 Sodium 131 L Potassium 3.5 Chloride 99 Carbon Dioxide 18 L BUN 57 H Creatinine 2.49 H Estimated GFR 24 L BUN/Creatinine Ratio 22.9 H Glucose 117 H Lactate Calcium 6.0 L* Phosphorus Magnesium Total Bilirubin 0.2 AST 41 H ALT 26 Alkaline Phosphatase 47 Total Creatine Kinase 87 CK-MB (CK-2) TNP CK-MB (CK-2) Rel Index TNP Troponin I 0.057 H NT-Pro-B Natriuret Pep Total Protein 4.5 L Albumin 2.5 L Globulin 2.0 Albumin/Globulin Ratio 1.3 Triglycerides Cholesterol LDL Cholesterol, Calc HDL Cholesterol Procalcitonin TSH 5.43 H Nasal Screen MRSA (PCR) A. baumannii (PCR) Magui albicans (PCR) C. glabrata (PCR) C. krusei (PCR) C. parapsilosis (PCR) C. tropicalis (PCR) Enterobacteriac sp PCR E. cloacae complex PCR Enterococcus sp PCR E. coli (PCR) H. influenzae (PCR) Klebsiella oxytoca PCR Klebsiella pneumoniae List. monocytogenes PCR N. meningitidis (PCR) Proteus species (PCR) Serratia marcescens PCR Staphylococcus sp PCR Staph aureus (PCR) mecA-Methicil Res Gene Streptococcus sp PCR Group A Strep (PCR) Strep agalactiae (PCR) Strep pneumoniae (PCR) P. aeruginosa (PCR) Maricruz/B-Vanco Res Genes KPC-Carbap Res Gene PCR 03/27/22 03/27/22 03/27/22 08:45 08:45 08:45 WBC RBC Hgb Hct MCV MCH MCHC RDW Plt Count Neut % (Auto) Lymph % (Auto) [place] % (Auto) Eos % (Auto) Baso % (Auto) Neut # (Auto) Lymph # (Auto) [place] # (Auto) Eos # (Auto) Baso # (Auto) Total Counted Seg Neutrophils % Band Neutrophils % Lymphocytes % (Manual) Atypical Lymphs % Monocytes % (Manual) Metamyelocytes % Neutrophils # (Manual) Nucleated RBCs RBC Morphology D-Dimer ABG pH ABG pCO2 ABG pO2 ABG HCO3 ABG Total CO2 ABG O2 Saturation ABG Base Excess FiO2 Sodium Potassium Chloride Carbon Dioxide BUN Creatinine Estimated GFR BUN/Creatinine Ratio Glucose Lactate 1.5 Calcium Phosphorus Magnesium Total Bilirubin AST ALT Alkaline Phosphatase Total Creatine Kinase 93 CK-MB (CK-2) TNP CK-MB (CK-2) Rel Index TNP Troponin I 0.096 H 0.095 H NT-Pro-B Natriuret Pep Total Protein Albumin Globulin Albumin/Globulin Ratio Triglycerides Cholesterol LDL Cholesterol, Calc HDL Cholesterol Procalcitonin TSH Nasal Screen MRSA (PCR) A. baumannii (PCR) Magui albicans (PCR) C. glabrata (PCR) C. krusei (PCR) C. parapsilosis (PCR) C. tropicalis (PCR) Enterobacteriac sp PCR E. cloacae complex PCR Enterococcus sp PCR E. coli (PCR) H. influenzae (PCR) Klebsiella oxytoca PCR Klebsiella pneumoniae List. monocytogenes PCR N. meningitidis (PCR) Proteus species (PCR) Serratia marcescens PCR Staphylococcus sp PCR Staph aureus (PCR) mecA-Methicil Res Gene Streptococcus sp PCR Group A Strep (PCR) Strep agalactiae (PCR) Strep pneumoniae (PCR) P. aeruginosa (PCR) Maricruz/B-Vanco Res Genes KPC-Carbap Res Gene PCR 03/27/22 03/27/22 03/27/22 08:45 08:56 10:54 WBC RBC Hgb Hct MCV MCH MCHC RDW Plt Count Neut % (Auto) Lymph % (Auto) [place] % (Auto) Eos % (Auto) Baso % (Auto) Neut # (Auto) Lymph # (Auto) [place] # (Auto) Eos # (Auto) Baso # (Auto) Total Counted Seg Neutrophils % Band Neutrophils % Lymphocytes % (Manual) Atypical Lymphs % Monocytes % (Manual) Metamyelocytes % Neutrophils # (Manual) Nucleated RBCs RBC Morphology D-Dimer 4141 H ABG pH 7.20 L* 7.22 L* ABG pCO2 40.0 39.4 ABG pO2 53 L 110 H ABG HCO3 16 L 16 L ABG Total CO2 17 L 17 L ABG O2 Saturation 79 L* 97 ABG Base Excess -12.0 L -12.0 L FiO2 100 100 Sodium Potassium Chloride Carbon Dioxide BUN Creatinine Estimated GFR BUN/Creatinine Ratio Glucose Lactate Calcium Phosphorus Magnesium Total Bilirubin AST ALT Alkaline Phosphatase Total Creatine Kinase CK-MB (CK-2) CK-MB (CK-2) Rel Index Troponin I NT-Pro-B Natriuret Pep Total Protein Albumin Globulin Albumin/Globulin Ratio Triglycerides Cholesterol LDL Cholesterol, Calc HDL Cholesterol Procalcitonin TSH Nasal Screen MRSA (PCR) A. baumannii (PCR) Magui albicans (PCR) C. glabrata (PCR) C. krusei (PCR) C. parapsilosis (PCR) C. tropicalis (PCR) Enterobacteriac sp PCR E. cloacae complex PCR Enterococcus sp PCR E. coli (PCR) H. influenzae (PCR) Klebsiella oxytoca PCR Klebsiella pneumoniae List. monocytogenes PCR N. meningitidis (PCR) Proteus species (PCR) Serratia marcescens PCR Staphylococcus sp PCR Staph aureus (PCR) mecA-Methicil Res Gene Streptococcus sp PCR Group A Strep (PCR) Strep agalactiae (PCR) Strep pneumoniae (PCR) P. aeruginosa (PCR) Maricruz/B-Vanco Res Genes KPC-Carbap Res Gene PCR 03/27/22 03/27/22 03/27/22 13:29 14:48 15:44 WBC RBC Hgb Hct MCV MCH MCHC RDW Plt Count Neut % (Auto) Lymph % (Auto) [place] % (Auto) Eos % (Auto) Baso % (Auto) Neut # (Auto) Lymph # (Auto) [place] # (Auto) Eos # (Auto) Baso # (Auto) Total Counted Seg Neutrophils % Band Neutrophils % Lymphocytes % (Manual) Atypical Lymphs % Monocytes % (Manual) Metamyelocytes % Neutrophils # (Manual) Nucleated RBCs RBC Morphology D-Dimer ABG pH 7.21 L* ABG pCO2 46.9 H ABG pO2 50 L ABG HCO3 19 L ABG Total CO2 20 L ABG O2 Saturation 76 L* ABG Base Excess -9.0 L FiO2 80 Sodium Potassium Chloride Carbon Dioxide BUN Creatinine Estimated GFR BUN/Creatinine Ratio Glucose Lactate Calcium Phosphorus Magnesium Total Bilirubin AST ALT Alkaline Phosphatase Total Creatine Kinase 198 H CK-MB (CK-2) 3.71 H CK-MB (CK-2) Rel Index 1.9 Troponin I 0.122 H* 0.110 H NT-Pro-B Natriuret Pep Total Protein Albumin Globulin Albumin/Globulin Ratio Triglycerides Cholesterol LDL Cholesterol, Calc HDL Cholesterol Procalcitonin TSH Nasal Screen MRSA (PCR) A. baumannii (PCR) Magui albicans (PCR) C. glabrata (PCR) C. krusei (PCR) C. parapsilosis (PCR) C. tropicalis (PCR) Enterobacteriac sp PCR E. cloacae complex PCR Enterococcus sp PCR E. coli (PCR) H. influenzae (PCR) Klebsiella oxytoca PCR Klebsiella pneumoniae List. monocytogenes PCR N. meningitidis (PCR) Proteus species (PCR) Serratia marcescens PCR Staphylococcus sp PCR Staph aureus (PCR) mecA-Methicil Res Gene Streptococcus sp PCR Group A Strep (PCR) Strep agalactiae (PCR) Strep pneumoniae (PCR) P. aeruginosa (PCR) Maricruz/B-Vanco Res Genes KPC-Carbap Res Gene PCR 03/27/22 03/27/22 03/27/22 15:52 15:52 15:52 WBC 3.5 L D RBC 3.47 L Hgb 10.4 L Hct 30.6 L MCV 88.3 MCH 30.1 MCHC 34.1 RDW 13.5 Plt Count 171 Neut % (Auto) Not Reportable Lymph % (Auto) Not Reportable [place] % (Auto) Not Reportable Eos % (Auto) Not Reportable Baso % (Auto) Not Reportable Neut # (Auto) Lymph # (Auto) Not Reportable [place] # (Auto) Not Reportable Eos # (Auto) Baso # (Auto) Not Reportable Total Counted 100 Seg Neutrophils % 35.0 L Band Neutrophils % 48.0 H Lymphocytes % (Manual) 13.0 L Atypical Lymphs % Monocytes % (Manual) 1.0 L Metamyelocytes % 3.0 H Neutrophils # (Manual) 2905 L Nucleated RBCs 1 H RBC Morphology Normal morphology D-Dimer ABG pH ABG pCO2 ABG pO2 ABG HCO3 ABG Total CO2 ABG O2 Saturation ABG Base Excess FiO2 Sodium 131 L Potassium 3.3 L Chloride 94 L Carbon Dioxide 18 L BUN 56 H Creatinine 2.97 H Estimated GFR 20 L BUN/Creatinine Ratio 18.9 Glucose 381 H D Lactate Calcium 5.5 L* Phosphorus 6.1 H Magnesium 1.9 Total Bilirubin AST ALT Alkaline Phosphatase Total Creatine Kinase 198 H CK-MB (CK-2) 3.55 H CK-MB (CK-2) Rel Index 1.8 Troponin I 0.106 H NT-Pro-B Natriuret Pep Total Protein Albumin Globulin Albumin/Globulin Ratio Triglycerides Cholesterol LDL Cholesterol, Calc HDL Cholesterol Procalcitonin TSH Nasal Screen MRSA (PCR) A. baumannii (PCR) Magui albicans (PCR) C. glabrata (PCR) C. krusei (PCR) C. parapsilosis (PCR) C. tropicalis (PCR) Enterobacteriac sp PCR E. cloacae complex PCR Enterococcus sp PCR E. coli (PCR) H. influenzae (PCR) Klebsiella oxytoca PCR Klebsiella pneumoniae List. monocytogenes PCR N. meningitidis (PCR) Proteus species (PCR) Serratia marcescens PCR Staphylococcus sp PCR Staph aureus (PCR) mecA-Methicil Res Gene Streptococcus sp PCR Group A Strep (PCR) Strep agalactiae (PCR) Strep pneumoniae (PCR) P. aeruginosa (PCR) Maricruz/B-Vanco Res Genes KPC-Carbap Res Gene PCR 03/27/22 03/27/22 03/27/22 15:52 18:32 18:49 WBC RBC Hgb Hct MCV MCH MCHC RDW Plt Count Neut % (Auto) Lymph % (Auto) [place] % (Auto) Eos % (Auto) Baso % (Auto) Neut # (Auto) Lymph # (Auto) [place] # (Auto) Eos # (Auto) Baso # (Auto) Total Counted Seg Neutrophils % Band Neutrophils % Lymphocytes % (Manual) Atypical Lymphs % Monocytes % (Manual) Metamyelocytes % Neutrophils # (Manual) Nucleated RBCs RBC Morphology D-Dimer ABG pH 7.21 L* ABG pCO2 51.0 H ABG pO2 62 L ABG HCO3 20 L ABG Total CO2 22 ABG O2 Saturation 86 L ABG Base Excess -8.0 L FiO2 90 Sodium Potassium Chloride Carbon Dioxide BUN Creatinine Estimated GFR BUN/Creatinine Ratio Glucose Lactate 2.7 H 2.0 Calcium Phosphorus Magnesium Total Bilirubin AST ALT Alkaline Phosphatase Total Creatine Kinase CK-MB (CK-2) CK-MB (CK-2) Rel Index Troponin I NT-Pro-B Natriuret Pep Total Protein Albumin Globulin Albumin/Globulin Ratio Triglycerides Cholesterol LDL Cholesterol, Calc HDL Cholesterol Procalcitonin TSH Nasal Screen MRSA (PCR) A. baumannii (PCR) Magui albicans (PCR) C. glabrata (PCR) C. krusei (PCR) C. parapsilosis (PCR) C. tropicalis (PCR) Enterobacteriac sp PCR E. cloacae complex PCR Enterococcus sp PCR E. coli (PCR) H. influenzae (PCR) Klebsiella oxytoca PCR Klebsiella pneumoniae List. monocytogenes PCR N. meningitidis (PCR) Proteus species (PCR) Serratia marcescens PCR Staphylococcus sp PCR Staph aureus (PCR) mecA-Methicil Res Gene Streptococcus sp PCR Group A Strep (PCR) Strep agalactiae (PCR) Strep pneumoniae (PCR) P. aeruginosa (PCR) Maricruz/B-Vanco Res Genes KPC-Carbap Res Gene PCR 03/27/22 03/27/22 20:16 21:37 WBC RBC Hgb Hct MCV MCH MCHC RDW Plt Count Neut % (Auto) Lymph % (Auto) [place] % (Auto) Eos % (Auto) Baso % (Auto) Neut # (Auto) Lymph # (Auto) [place] # (Auto) Eos # (Auto) Baso # (Auto) Total Counted Seg Neutrophils % Band Neutrophils % Lymphocytes % (Manual) Atypical Lymphs % Monocytes % (Manual) Metamyelocytes % Neutrophils # (Manual) Nucleated RBCs RBC Morphology D-Dimer ABG pH 7.21 L* ABG pCO2 49.7 H ABG pO2 63 L ABG HCO3 20 L ABG Total CO2 21 ABG O2 Saturation 86 L ABG Base Excess -8.0 L FiO2 90 Sodium Potassium Chloride Carbon Dioxide BUN Creatinine Estimated GFR BUN/Creatinine Ratio Glucose Lactate Calcium Phosphorus Magnesium Total Bilirubin AST ALT Alkaline Phosphatase Total Creatine Kinase 176 H CK-MB (CK-2) 2.84 H CK-MB (CK-2) Rel Index 1.6 Troponin I 0.092 H NT-Pro-B Natriuret Pep Total Protein Albumin Globulin Albumin/Globulin Ratio Triglycerides Cholesterol LDL Cholesterol, Calc HDL Cholesterol Procalcitonin TSH Nasal Screen MRSA (PCR) A. baumannii (PCR) Magui albicans (PCR) C. glabrata (PCR) C. krusei (PCR) C. parapsilosis (PCR) C. tropicalis (PCR) Enterobacteriac sp PCR E. cloacae complex PCR Enterococcus sp PCR E. coli (PCR) H. influenzae (PCR) Klebsiella oxytoca PCR Klebsiella pneumoniae List. monocytogenes PCR N. meningitidis (PCR) Proteus species (PCR) Serratia marcescens PCR Staphylococcus sp PCR Staph aureus (PCR) mecA-Methicil Res Gene Streptococcus sp PCR Group A Strep (PCR) Strep agalactiae (PCR) Strep pneumoniae (PCR) P. aeruginosa (PCR) Maricruz/B-Vanco Res Genes KPC-Carbap Res Gene PCR PFSH Social History household members: none Smoking Status: Unknown if ever smoked Discharge Assessment & Plan Assessment and Plan Assessment: septic shock secondary to severe ARDS from bilateral pneumonia and strep pneumoniae bacteremia, resulting in acute renal failure Plan of Treatment: To have patient transferred to a hospital with a higher level of care Cardiology nephrology/endocrinology/pulmonology. Patient would benefit from ECMO, paralytic proning, and more expansive medical and medication management for cardiopulmonary support. 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
[2022-03-28 13:18] LABS: Legionella pneumo Antigen Negative (Negative)
[2022-03-28 16:26] LABS: C-Reactive Protein Quant 41.6 mg/dL (<1.0)
== END 2022-03-28 04:45 | disposition short-term general hospital (02) | DRG 720 ==
LOC: ED 22:08 → AC 03-27 00:23 → ICU 03-27 01:36
PROVIDERS: Emergency Medicine; Internal Medicine Critical Care Medicine; Student in an Organized Health Care Education/Training Program; Admitting Provider Nurse Practitioner Family; Emergency Provider Emergency Medicine; Referring Provider Emergency Medicine; Visit Provider Nurse Practitioner Family
DX: A41.9 Sepsis, unspecified organism (principal); J13 Pneumonia due to Streptococcus pneumoniae; R65.21 Severe sepsis with septic shock; N17.9 Acute kidney failure, unspecified; I50.9 Heart failure, unspecified; E87.4 Mixed disorder of acid-base balance; E66.9 Obesity, unspecified; R73.9 Hyperglycemia, unspecified; J80 Acute respiratory distress syndrome; T38.0X5A Adverse effect of glucocorticoids and synthetic analogues, initial encounter; F17.290 Nicotine dependence, other tobacco product, uncomplicated; Z68.32 Body mass index [BMI] 32.0-32.9, adult; Z20.822 Contact with and (suspected) exposure to COVID-19
CPT/HCPCS: 36415; 36592; 36600; 71045; 80048; 80053; 80061; 80305; 81001; 82550; 82553; 82805; 82962; 83036; 83605; 83690; 83735; 83880; 84100; 84145; 84443; 84484; 84703; 85007; 85025; 85379; 85610; 85730; 86140; 87040; 87086; 87150; 87186; 87449; 87633; 87797; 93005; 93010; 93306; 93970; 94002; 94003; 94640; 94660; 94799; 96365; 96368; 96375; 99232; 99284; 99291; C9113; J0171; J0330; J0610; J0696; J1644; J1650; J1720; J2250; J2405; J2704; J3010; J3475; P9041